=== PATIENT | female | born 1935 | race Caucasian/White ===

== ENCOUNTER 2017-09-27 09:32 | Inpatient (IN) ==
[2017-09-27] MEDS ORDERED: ACETAMINOPHEN 325 MG TABLET PO PRN (09:38)
[2017-09-27] MEDS ORDERED: ONDANSETRON 4 MG/2 ML VIAL IV PRN (09:38)
[2017-09-27] MEDS ORDERED: ALBUTEROL/IPRATROPIUM 3 ML NEB RESP TX PRN (09:59)
[2017-09-27] MEDS ORDERED: cefOXitin 2,000 MG in SYRINGE 1 EACH IV ONE (12:24)
[2017-09-27] MEDS: PANTOPRAZOLE 40 MG TABLET PO SCH (12:30)
[2017-09-27] MEDS: BENZONATATE 100 MG CAPSULE PO SCH ×2 (12:30→20:09)
[2017-09-27] MEDS: LEVOFLOXACIN INJ 500 MG in PREMIX 1 EACH IV SCH (12:30)
[2017-09-27 12:36] LABS: Basophils # 0.1 10*3/uL (0.0-0.2); Basophils % 0.4 % (0.0-0.8); Eosinophils # 0.1 10*3/uL (0.0-0.87); Eosinophils % 0.4 % (0.00-10.9); Hematocrit 30.6 VOL% (35.7-47.0); Hemoglobin 10.5 GM/DL (12.0-16.0); Immature Granulocytes % 1.4 %; Immature Granulocytes Absolute 0.27 #; Lymphocytes % 4.9 % (21.3-54.2); Mean Corpuscular HGB Conc 34.3 GM/DL (32-36); Mean Corpuscular Hemoglobin 29 PG (27-34); Mean Corpuscular Volume 84.1 FL (87-102); Mean Platelet Volume 10.8 FL (9.6-12.0); Monocytes # 1.2 10*3/uL (0.11-0.8); Monocytes % 6.3 % (1.7-12.7); Neutrophils # 16.9 10*3/uL (1.4-7.4); Neutrophils % 86.6 % (38.7-73.9); Platelet Count 296 T/CUMM (130-400); Red Blood Count 3.64 MC/CUMM (3.8-5.5); Red Cell Distribution Width 14.3 % (9.3-17.3); White Blood Count 19.5 T/CUMM (4-12)
[2017-09-27 12:56] LABS: Hypochromasia 1+; Lymphocytes 7 % (20-55); Segmented Neutrophils 86 % (50-85); Total Cells Counted 100
[2017-09-27 12:57] LABS: Microcytosis 1+; Platelet Estimate Normal
[2017-09-27] MEDS: ALBUTEROL/IPRATROPIUM 3 ML NEB RESP TX SCH ×2 (13:00→19:16)
[2017-09-27 13:05] LABS: Alanine Aminotransferase < 9 U/L (13-56); Albumin 1.9 G/DL (3.4-5.0); Alkaline Phosphatase 102 U/L (45-117); Aspartate Amino Transferase 19 U/L (0-37); Blood Urea Nitrogen 37 MG/DL (7-18); Calcium 8.2 MG/DL (8.5-10.1); Glucose 185 MG/DL (74-106); Osmolality,Calculated 283.1 MOS/KG (273-304); Potassium 3.4 MMOL/L (3.5-5.1); Sodium 135 MMOL/L (136-145); Total Protein 5.6 G/DL (6.4-8.3)
[2017-09-27 16:19] LABS: Apearance,Urine Slightly Hazy (Clear); Bilirubin,Urine Negative (Negative); Blood, Urine Small mg/dL (Negative); Glucose,Urine (UA) 150 mg/dL (Negative); Ketones,Urine Negative (Negative); Nitrite,Urine Negative (Negative); Protein,Urine 100 MG/DL; RBC,Urine <1 /HPF (0-4); Squamous Epithelial Cell,Urine Occasional /HPF (0-10); Urine Color Yellow (Yellow); Urine Specific Gravity 1.009 (1.001-1.035); Urine Urobilinogen < 2.0 EU/DL (0.2-1.0); WBC,Urine 5 /HPF (0-6)
[2017-09-27] MEDS: DOCUSATE SODIUM 100 MG CAPSULE PO SCH (20:10)
[2017-09-28] MEDS: ALBUTEROL/IPRATROPIUM 3 ML NEB RESP TX SCH ×4 (01:20→20:18)
[2017-09-28] MEDS ORDERED: cefOXitin 2,000 MG in SYRINGE 1 EACH IV ONE (06:00)
[2017-09-28 06:28] LABS: Basophils # 0.1 10*3/uL (0.0-0.2); Basophils % 0.4 % (0.0-0.8); Eosinophils # 0.2 10*3/uL (0.0-0.87); Eosinophils % 0.8 % (0.00-10.9); Hematocrit 31.4 VOL% (35.7-47.0); Hemoglobin 10.7 GM/DL (12.0-16.0); Immature Granulocytes % 1.3 %; Immature Granulocytes Absolute 0.28 #; Lymphocytes # 1.4 10*3/uL (1.4-4.0); Lymphocytes % 6.1 % (21.3-54.2); Mean Corpuscular HGB Conc 34.1 GM/DL (32-36); Mean Corpuscular Hemoglobin 29 PG (27-34); Mean Platelet Volume 10.8 FL (9.6-12.0); Monocytes # 1.3 10*3/uL (0.11-0.8); Monocytes % 5.8 % (1.7-12.7); Neutrophils # 19.1 10*3/uL (1.4-7.4); Neutrophils % 85.6 % (38.7-73.9); Platelet Count 334 T/CUMM (130-400); Red Blood Count 3.74 MC/CUMM (3.8-5.5); Red Cell Distribution Width 14.4 % (9.3-17.3); White Blood Count 22.3 T/CUMM (4-12)
[2017-09-28 06:49] LABS: Band Neutrophils 1 % (0-10); Lymphocytes 8 % (20-55); Platelet Estimate Adequate; Segmented Neutrophils 85 % (50-85); Total Cells Counted 100
[2017-09-28 06:50] LABS: Giant Platelets Few; Hypochromasia 1+; Microcytosis 1+; Ovalocytes Slight
[2017-09-28 07:06] LABS: Calcium 8.1 MG/DL (8.5-10.1); Potassium 3.9 MMOL/L (3.5-5.1)
[2017-09-28] MEDS: BENZONATATE 100 MG CAPSULE PO SCH ×2 (09:11→21:13)
[2017-09-28] MEDS: DOCUSATE SODIUM 100 MG CAPSULE PO SCH ×2 (09:11→21:13)
[2017-09-28] MEDS: PANTOPRAZOLE 40 MG TABLET PO SCH (09:11)
[2017-09-28] MEDS: LEVOFLOXACIN INJ 500 MG in PREMIX 1 EACH IV SCH (09:11)
[2017-09-29] MEDS: ALBUTEROL/IPRATROPIUM 3 ML NEB RESP TX SCH ×4 (00:08→19:07)
[2017-09-29 06:18] LABS: Basophils # 0.1 10*3/uL (0.0-0.2); Basophils % 0.4 % (0.0-0.8); Eosinophils # 0.2 10*3/uL (0.0-0.87); Hematocrit 33.7 VOL% (35.7-47.0); Hemoglobin 11.2 GM/DL (12.0-16.0); Immature Granulocytes % 1.7 %; Immature Granulocytes Absolute 0.31 #; Lymphocytes # 1.4 10*3/uL (1.4-4.0); Lymphocytes % 7.6 % (21.3-54.2); Mean Corpuscular HGB Conc 33.2 GM/DL (32-36); Mean Corpuscular Hemoglobin 28 PG (27-34); Mean Corpuscular Volume 85.5 FL (87-102); Mean Platelet Volume 10.4 FL (9.6-12.0); Monocytes % 5.4 % (1.7-12.7); Neutrophils # 15.6 10*3/uL (1.4-7.4); Neutrophils % 83.9 % (38.7-73.9); Platelet Count 310 T/CUMM (130-400); Red Blood Count 3.94 MC/CUMM (3.8-5.5); Red Cell Distribution Width 14.3 % (9.3-17.3); White Blood Count 18.6 T/CUMM (4-12)
[2017-09-29 06:46] LABS: Calcium 8.4 MG/DL (8.5-10.1); Osmolality,Calculated 283.8 MOS/KG (273-304); Potassium 3.6 MMOL/L (3.5-5.1)
[2017-09-29] MEDS: BENZONATATE 100 MG CAPSULE PO SCH ×2 (09:00→20:20)
[2017-09-29] MEDS: LEVOFLOXACIN INJ 500 MG in PREMIX 1 EACH IV SCH (09:12)
[2017-09-29] MEDS: DOCUSATE SODIUM 100 MG CAPSULE PO SCH ×2 (09:14→20:20)
[2017-09-29] MEDS ORDERED: LIDOCAINE 1%/EPI INJ 20 ML VIAL ONE ×2 (10:49→13:00)
[2017-09-29] MEDS ORDERED: HEPARIN 5,000 UNIT/1 ML VIAL ONE (10:49)
[2017-09-29] MEDS: SODIUM CHLORIDE 0.9% 250 ML IV SCH ×2 (10:51→23:33)
[2017-09-29] MEDS ORDERED: PROPOFOL 200 MG/20 ML VIAL IV ONE (13:35)
[2017-09-29] MEDS ORDERED: SEVOFLURANE 1 UNIT/15 MINUTE INH ONE (13:35)
[2017-09-29] MEDS ORDERED: ALBUMIN 5% 12.5 GM/250 ML VIAL IV ONE (13:35)
[2017-09-29] MEDS ORDERED: fentaNYL 100 MCG/2 ML VIAL ONE (13:36)
[2017-09-29] MEDS ORDERED: SODIUM CHLORIDE 0.9% 1,000 ML IV ONE (13:37)
[2017-09-29] MEDS ORDERED: ROCURONIUM 100 MG/10 ML VIAL IV ONE (13:37)
[2017-09-29] MEDS ORDERED: ACETAMINOPHEN 1,000 MG/100 ML VIAL IV ONE (13:37)
[2017-09-29] MEDS ORDERED: ONDANSETRON 4 MG/2 ML VIAL ONE (13:37)
[2017-09-29] MEDS ORDERED: LABETALOL 20 MG/4 ML SYRINGE IV ONE (13:42)
[2017-09-29] MEDS ORDERED: LABETALOL 100 MG/20 ML VIAL IV ONE (14:00)
[2017-09-29] MEDS: PANTOPRAZOLE 40 MG TABLET PO SCH (14:30)
[2017-09-29] MEDS ORDERED: NITROGLYCERIN SL 0.4 MG TABLET SL PRN (15:15)
[2017-09-29] MEDS ORDERED: hydrALAZINE 25 MG TABLET PO SCH ×2 (15:29→21:00)
[2017-09-29] MEDS: amLODIPine 5 MG TABLET PO SCH (15:45)
[2017-09-29] MEDS: hydrALAZINE 25 MG TABLET PO SCH ×2 (15:45→20:20)
[2017-09-29] MEDS: CARVEDILOL 12.5 MG TABLET PO SCH (17:36)
[2017-09-30] MEDS: ALBUTEROL/IPRATROPIUM 3 ML NEB RESP TX SCH ×4 (00:05→19:24)
[2017-09-30 02:23] LABS: Basophils # 0.1 10*3/uL (0.0-0.2); Basophils % 0.3 % (0.0-0.8); Eosinophils # 0.1 10*3/uL (0.0-0.87); Eosinophils % 0.6 % (0.00-10.9); Hemoglobin 10.7 GM/DL (12.0-16.0); Immature Granulocytes % 1.9 %; Immature Granulocytes Absolute 0.41 #; Lymphocytes # 1.1 10*3/uL (1.4-4.0); Lymphocytes % 4.9 % (21.3-54.2); Mean Corpuscular HGB Conc 33.4 GM/DL (32-36); Mean Corpuscular Hemoglobin 28 PG (27-34); Mean Corpuscular Volume 84.4 FL (87-102); Mean Platelet Volume 10.2 FL (9.6-12.0); Monocytes # 0.8 10*3/uL (0.11-0.8); Monocytes % 3.8 % (1.7-12.7); Neutrophils # 19.4 10*3/uL (1.4-7.4); Neutrophils % 88.5 % (38.7-73.9); Platelet Count 273 T/CUMM (130-400); Red Blood Count 3.79 MC/CUMM (3.8-5.5); Red Cell Distribution Width 14.5 % (9.3-17.3)
[2017-09-30 02:50] LABS: Calcium 7.4 MG/DL (8.5-10.1); Osmolality,Calculated 286.7 MOS/KG (273-304); Potassium 3.8 MMOL/L (3.5-5.1)
[2017-09-30 03:04] LABS: Band Neutrophils 26 % (0-10); Eosinophils 2 % (0-10); Lymphocytes 4 % (20-55); Segmented Neutrophils 65 % (50-85); Total Cells Counted 100
[2017-09-30 03:05] LABS: Anisocytosis 1+; Polychromasia Slight
[2017-09-30] MEDS: HYDROmorphone 2 MG/1 ML VIAL IV PRN ×2 (04:55→10:06)
[2017-09-30] MEDS: LEVOTHYROXINE 50 MCG TABLET PO SCH (06:24)
[2017-09-30] MEDS ORDERED: amLODIPine 5 MG TABLET PO SCH (09:00)
[2017-09-30] MEDS ORDERED: PANTOPRAZOLE 40 MG TABLET PO SCH (09:00)
[2017-09-30] MEDS: LEVOFLOXACIN INJ 500 MG in PREMIX 1 EACH IV SCH (09:34)
[2017-09-30] MEDS: BENZONATATE 100 MG CAPSULE PO SCH ×2 (09:35→21:41)
[2017-09-30] MEDS: DOCUSATE SODIUM 100 MG CAPSULE PO SCH ×2 (09:35→21:41)
[2017-09-30] MEDS: ASPIRIN 325 MG TABLET PO SCH (09:35)
[2017-09-30] MEDS: PANTOPRAZOLE 40 MG TABLET PO SCH (09:35)
[2017-09-30] MEDS: ISOSORBIDE MONONITRATE 60 MG TABLET PO SCH (09:35)
[2017-09-30] MEDS: hydrALAZINE 25 MG TABLET PO SCH ×3 (09:35→21:41)
[2017-09-30] MEDS: CALCITRIOL 0.5 MCG CAPSULE PO SCH (09:35)
[2017-09-30] MEDS: ATORVASTATIN 20 MG TABLET PO SCH (09:36)
[2017-09-30] MEDS: CARVEDILOL 12.5 MG TABLET PO SCH ×2 (09:36→16:12)
[2017-09-30] MEDS: amLODIPine 5 MG TABLET PO SCH (09:37)
[2017-09-30] MEDS: SODIUM CHLORIDE 0.9% 250 ML IV SCH ×2 (16:12→23:34)
[2017-09-30] MEDS: MUPIROCIN 2% OINT 22 GM TUBE TOP SCH (21:42)
[2017-10-01] MEDS: ALBUTEROL/IPRATROPIUM 3 ML NEB RESP TX SCH ×4 (01:53→19:55)
[2017-10-01 04:50] LABS: Basophils # 0.1 10*3/uL (0.0-0.2); Basophils % 0.3 % (0.0-0.8); Eosinophils # 0.3 10*3/uL (0.0-0.87); Eosinophils % 1.4 % (0.00-10.9); Hematocrit 29.8 VOL% (35.7-47.0); Hemoglobin 9.7 GM/DL (12.0-16.0); Lymphocytes # 1.5 10*3/uL (1.4-4.0); Lymphocytes % 7.5 % (21.3-54.2); Mean Corpuscular HGB Conc 32.6 GM/DL (32-36); Mean Corpuscular Hemoglobin 29 PG (27-34); Mean Corpuscular Volume 88.2 FL (87-102); Mean Platelet Volume 10.3 FL (9.6-12.0); Monocytes # 0.9 10*3/uL (0.11-0.8); Monocytes % 4.4 % (1.7-12.7); Neutrophils # 17.2 10*3/uL (1.4-7.4); Neutrophils % 84.4 % (38.7-73.9); Platelet Count 250 T/CUMM (130-400); Red Blood Count 3.38 MC/CUMM (3.8-5.5); Red Cell Distribution Width 14.6 % (9.3-17.3); White Blood Count 20.4 T/CUMM (4-12)
[2017-10-01 05:13] LABS: Hypochromasia 1+
[2017-10-01 05:14] LABS: Platelet Estimate Adequate
[2017-10-01 05:28] LABS: Calcium 7.4 MG/DL (8.5-10.1); Osmolality,Calculated 278.5 MOS/KG (273-304); Potassium 3.7 MMOL/L (3.5-5.1)
[2017-10-01] MEDS: LEVOTHYROXINE 50 MCG TABLET PO SCH (06:29)
[2017-10-01] MEDS: ASPIRIN 325 MG TABLET PO SCH (09:21)
[2017-10-01] MEDS: ISOSORBIDE MONONITRATE 60 MG TABLET PO SCH (09:21)
[2017-10-01] MEDS: ATORVASTATIN 20 MG TABLET PO SCH (09:21)
[2017-10-01] MEDS: DOCUSATE SODIUM 100 MG CAPSULE PO SCH ×2 (09:21→21:25)
[2017-10-01] MEDS: CALCITRIOL 0.5 MCG CAPSULE PO SCH (09:21)
[2017-10-01] MEDS: CARVEDILOL 12.5 MG TABLET PO SCH ×2 (09:21→18:07)
[2017-10-01] MEDS: PANTOPRAZOLE 40 MG TABLET PO SCH (09:21)
[2017-10-01] MEDS: hydrALAZINE 25 MG TABLET PO SCH ×3 (09:22→21:25)
[2017-10-01] MEDS: BENZONATATE 100 MG CAPSULE PO SCH ×2 (09:22→21:25)
[2017-10-01] MEDS: MUPIROCIN 2% OINT 22 GM TUBE TOP SCH ×2 (09:24→21:28)
[2017-10-01] MEDS: amLODIPine 5 MG TABLET PO SCH (09:24)
[2017-10-01] MEDS: LEVOFLOXACIN INJ 500 MG in PREMIX 1 EACH IV SCH (10:25)
[2017-10-01] MEDS: SODIUM CHLORIDE 0.9% 250 ML IV SCH (18:07)
[2017-10-02] MEDS: ALBUTEROL/IPRATROPIUM 3 ML NEB RESP TX SCH ×4 (00:20→19:41)
[2017-10-02] MEDS: SODIUM CHLORIDE 0.9% 250 ML IV SCH (03:55)
[2017-10-02] MEDS: LEVOTHYROXINE 50 MCG TABLET PO SCH (05:52)
[2017-10-02] MEDS: BENZONATATE 100 MG CAPSULE PO SCH ×2 (09:36→21:19)
[2017-10-02] MEDS: CALCITRIOL 0.5 MCG CAPSULE PO SCH (09:36)
[2017-10-02] MEDS: DOCUSATE SODIUM 100 MG CAPSULE PO SCH ×2 (09:37→21:20)
[2017-10-02] MEDS: ATORVASTATIN 20 MG TABLET PO SCH (09:37)
[2017-10-02] MEDS: hydrALAZINE 25 MG TABLET PO SCH ×3 (09:37→21:20)
[2017-10-02] MEDS: amLODIPine 5 MG TABLET PO SCH (09:37)
[2017-10-02] MEDS: PANTOPRAZOLE 40 MG TABLET PO SCH (09:37)
[2017-10-02] MEDS: MUPIROCIN 2% OINT 22 GM TUBE TOP SCH ×2 (09:37→21:17)
[2017-10-02] MEDS: ASPIRIN 325 MG TABLET PO SCH (09:37)
[2017-10-02] MEDS: CARVEDILOL 12.5 MG TABLET PO SCH ×2 (09:37→16:17)
[2017-10-02] MEDS: ISOSORBIDE MONONITRATE 60 MG TABLET PO SCH (09:37)
[2017-10-02] MEDS: LEVOFLOXACIN INJ 500 MG in PREMIX 1 EACH IV SCH (10:50)
[2017-10-03] MEDS: ALBUTEROL/IPRATROPIUM 3 ML NEB RESP TX SCH ×3 (00:20→14:27)
[2017-10-03 04:49] LABS: Basophils # 0.1 10*3/uL (0.0-0.2); Basophils % 0.4 % (0.0-0.8); Eosinophils # 0.5 10*3/uL (0.0-0.87); Eosinophils % 3.2 % (0.00-10.9); Hematocrit 26.8 VOL% (35.7-47.0); Hemoglobin 8.9 GM/DL (12.0-16.0); Immature Granulocytes % 2.4 %; Immature Granulocytes Absolute 0.33 #; Lymphocytes # 1.4 10*3/uL (1.4-4.0); Mean Corpuscular HGB Conc 33.2 GM/DL (32-36); Mean Corpuscular Hemoglobin 29 PG (27-34); Mean Corpuscular Volume 86.2 FL (87-102); Mean Platelet Volume 9.9 FL (9.6-12.0); Monocytes # 0.8 10*3/uL (0.11-0.8); Monocytes % 5.6 % (1.7-12.7); Neutrophils # 10.9 10*3/uL (1.4-7.4); Neutrophils % 78.4 % (38.7-73.9); Platelet Count 240 T/CUMM (130-400); Red Blood Count 3.11 MC/CUMM (3.8-5.5); Red Cell Distribution Width 14.8 % (9.3-17.3); White Blood Count 13.9 T/CUMM (4-12)
[2017-10-03 05:23] LABS: Calcium 7.4 MG/DL (8.5-10.1); Osmolality,Calculated 282.8 MOS/KG (273-304); Potassium 3.8 MMOL/L (3.5-5.1)
[2017-10-03] MEDS: SODIUM CHLORIDE 0.9% 250 ML IV SCH ×2 (05:57→05:58)
[2017-10-03] MEDS: LEVOTHYROXINE 50 MCG TABLET PO SCH (05:59)
[2017-10-03] MEDS: hydrALAZINE 25 MG TABLET PO SCH ×2 (14:09→16:07)
[2017-10-03] MEDS: DOCUSATE SODIUM 100 MG CAPSULE PO SCH (14:09)
[2017-10-03] MEDS: CARVEDILOL 12.5 MG TABLET PO SCH (14:09)
[2017-10-03] MEDS: MUPIROCIN 2% OINT 22 GM TUBE TOP SCH (14:09)
[2017-10-03] MEDS: ATORVASTATIN 20 MG TABLET PO SCH (14:09)
[2017-10-03] MEDS: ISOSORBIDE MONONITRATE 60 MG TABLET PO SCH (14:09)
[2017-10-03] MEDS: ASPIRIN 325 MG TABLET PO SCH (14:09)
[2017-10-03] MEDS: amLODIPine 5 MG TABLET PO SCH (14:10)
[2017-10-03] MEDS: BENZONATATE 100 MG CAPSULE PO SCH (14:10)
[2017-10-03] MEDS: CALCITRIOL 0.5 MCG CAPSULE PO SCH (14:10)
[2017-10-03] MEDS: PANTOPRAZOLE 40 MG TABLET PO SCH (14:10)
[2017-10-03] MEDS: LEVOFLOXACIN INJ 500 MG in PREMIX 1 EACH IV SCH (14:10)
[2017-10-03 15:40] VITALS: BP 170/81
== END 2017-10-03 15:15 | disposition home health service (06) | DRG 353 ==
LOC: N.3E 11:55
PROVIDERS: ADMIT Internal Medicine; ATTEND Internal Medicine

== ENCOUNTER 2018-04-06 08:31 | Inpatient (IN) ==
[2018-04-06] MEDS ORDERED: FUROSEMIDE 40 MG/4 ML VIAL IV STA (09:05)
[2018-04-06 09:21] LABS: Basophils # 0.1 10*3/uL (0.0-0.2); Basophils % 0.8 % (0.0-0.8); Eosinophils # 0.2 10*3/uL (0.0-0.87); Eosinophils % 3.7 % (0.00-10.9); Hematocrit 29.2 VOL% (35.7-47.0); Hemoglobin 9.6 GM/DL (12.0-16.0); Immature Granulocytes % 0.2 %; Immature Granulocytes Absolute 0.01 #; Lymphocytes # 0.9 10*3/uL (1.4-4.0); Lymphocytes % 13.8 % (21.3-54.2); Mean Corpuscular HGB Conc 32.9 GM/DL (32-36); Mean Corpuscular Hemoglobin 28 PG (27-34); Mean Corpuscular Volume 84.6 FL (87-102); Mean Platelet Volume 10.8 FL (9.6-12.0); Monocytes # 0.5 10*3/uL (0.11-0.8); Monocytes % 7.8 % (1.7-12.7); Neutrophils # 4.6 10*3/uL (1.4-7.4); Neutrophils % 73.7 % (38.7-73.9); Platelet Count 179 T/CUMM (130-400); Red Blood Count 3.45 MC/CUMM (3.8-5.5); Red Cell Distribution Width 15.6 % (9.3-17.3); White Blood Count 6.3 T/CUMM (4-12)
[2018-04-06 10:07] LABS: Albumin 2.5 G/DL (3.4-5.0); Bilirubin,Total 0.4 MG/DL (0.2-1.0); Calcium 7.9 MG/DL (8.5-10.1); Osmolality,Calculated 280.7 MOS/KG (273-304); Potassium 4.1 MMOL/L (3.5-5.1)
[2018-04-06] MEDS ORDERED: ONDANSETRON 4 MG/2 ML VIAL IV PRN (10:49)
[2018-04-06 15:45] LABS: Apearance,Urine CLEAR (Clear); Bacteria,Urine Occasional /HPF (Few); Bilirubin,Urine Negative (Negative); Blood, Urine Small mg/dL (Negative); Glucose,Urine (UA) Negative (Negative); Ketones,Urine Negative (Negative); Nitrite,Urine Negative (Negative); Protein,Urine 30 MG/DL; RBC,Urine <1 /HPF (0-4); Squamous Epithelial Cell,Urine Occasional /HPF (0-10); Urine Color Straw (Yellow); Urine Specific Gravity 1.004 (1.001-1.035); Urine Urobilinogen < 2.0 EU/DL (0.2-1.0); WBC,Urine <1 /HPF (0-6)
[2018-04-06] MEDS: FUROSEMIDE 40 MG/4 ML VIAL IV SCH (20:49)
[2018-04-06] MEDS ORDERED: FUROSEMIDE 40 MG/4 ML VIAL IV SCH (21:00)
[2018-04-07 05:45] LABS: Basophils # 0.1 10*3/uL (0.0-0.2); Basophils % 0.7 % (0.0-0.8); Eosinophils # 0.2 10*3/uL (0.0-0.87); Eosinophils % 1.8 % (0.00-10.9); Hematocrit 27.7 VOL% (35.7-47.0); Hemoglobin 8.8 GM/DL (12.0-16.0); Immature Granulocytes % 0.3 %; Immature Granulocytes Absolute 0.03 #; Lymphocytes # 1.1 10*3/uL (1.4-4.0); Lymphocytes % 12.2 % (21.3-54.2); Mean Corpuscular HGB Conc 31.8 GM/DL (32-36); Mean Corpuscular Hemoglobin 27 PG (27-34); Mean Platelet Volume 10.9 FL (9.6-12.0); Monocytes # 0.6 10*3/uL (0.11-0.8); Monocytes % 6.9 % (1.7-12.7); Neutrophils # 7.1 10*3/uL (1.4-7.4); Neutrophils % 78.1 % (38.7-73.9); Platelet Count 192 T/CUMM (130-400); Red Blood Count 3.26 MC/CUMM (3.8-5.5); Red Cell Distribution Width 15.8 % (9.3-17.3); White Blood Count 9.1 T/CUMM (4-12)
[2018-04-07 05:56] LABS: Albumin 2.4 G/DL (3.4-5.0); Osmolality,Calculated 279.8 MOS/KG (273-304)
[2018-04-07] MEDS ORDERED: NITROGLYCERIN SL 0.4 MG TABLET SL PRN (08:05)
[2018-04-07] MEDS: FUROSEMIDE 40 MG/4 ML VIAL IV SCH ×2 (08:46→20:26)
[2018-04-07] MEDS ORDERED: LEVOTHYROXINE 50 MCG TABLET PO SCH (09:00)
[2018-04-07] MEDS ORDERED: BUPIVACAINE MPF 0.25% 30 ML VIAL ONE (09:47)
[2018-04-07] MEDS: ASPIRIN 325 MG TABLET PO SCH (10:13)
[2018-04-07] MEDS: ISOSORBIDE MONONITRATE 60 MG TABLET PO SCH (10:13)
[2018-04-07] MEDS: POTASSIUM CHLORIDE 8 MEQ CAPSULE PO SCH (10:13)
[2018-04-07] MEDS: ATORVASTATIN 20 MG TABLET PO SCH (10:13)
[2018-04-07] MEDS: CHOLESTYRAMINE/ASPARTAME 4 GM PACK PO SCH ×2 (10:14→20:25)
[2018-04-07] MEDS: PANTOPRAZOLE 40 MG TABLET PO SCH (10:14)
[2018-04-07] MEDS: metOLazone 2.5 MG TABLET PO SCH ×2 (10:14→20:25)
[2018-04-07] MEDS: amLODIPine 10 MG TABLET PO SCH (10:14)
[2018-04-07] MEDS ORDERED: ceFAZolin 1,000 MG VIAL ONE (10:32)
[2018-04-07] MEDS ORDERED: HEPARIN 5,000 UNIT/1 ML VIAL ONE (10:47)
[2018-04-07] MEDS: ALBUTEROL/IPRATROPIUM 3 ML NEB RESP TX SCH ×4 (11:15→22:44)
[2018-04-07] MEDS ORDERED: PROPOFOL 1,000 MG/100 ML BOTTLE IV ONE (11:31)
[2018-04-07] MEDS ORDERED: PROPOFOL 200 MG/20 ML VIAL IV ONE (11:34)
[2018-04-07] MEDS ORDERED: fentaNYL 100 MCG/2 ML VIAL ONE (11:35)
[2018-04-07] MEDS ORDERED: SUCCINYLCHOLINE 200 MG/10 ML VIAL ONE (11:35)
[2018-04-07] MEDS ORDERED: ROCURONIUM 100 MG/10 ML VIAL IV ONE (11:35)
[2018-04-07] MEDS ORDERED: ONDANSETRON 4 MG/2 ML VIAL ONE (11:35)
[2018-04-07] MEDS ORDERED: SEVOFLURANE 1 UNIT/15 MINUTE INH ONE (11:35)
[2018-04-07] MEDS: PROPOFOL 1,000 MG/100 ML BOTTLE IV SCH ×2 (12:15→22:24)
[2018-04-07 13:00] LABS: ABG Base Excess -0.5 MMOL/L (-2.5-2.5); ABG Oxygen Saturation 94.5 % (95-100); ABG PCO2 43.3 MM HG (35-48); ABG PH 7.367 (7.35-7.45); ABG PO2 78.6 MM HG (80-95); ABG TCO2 23.1 MMOL/L (23-27); Pt O2 Delivery Device Ventilator
[2018-04-07] MEDS: CARVEDILOL 12.5 MG TABLET PO SCH (16:59)
[2018-04-07] MEDS ORDERED: GLUCAGON 1 MG VIAL IM PRN (22:18)
[2018-04-07] MEDS: DEXTROSE 50% 25 GM/50 ML VIAL IV PRN (22:25)
[2018-04-07] MEDS: INSULIN REGULAR 100 UNIT/ML SUBCUT SCH (23:04)
[2018-04-08] MEDS: ALBUTEROL/IPRATROPIUM 3 ML NEB RESP TX SCH ×6 (02:30→23:30)
[2018-04-08 03:49] LABS: ABG Base Excess -0.1 MMOL/L (-2.5-2.5); ABG HCO3 24.4 MMOL/L (20-26); ABG Oxygen Saturation 99.3 % (95-100); ABG PH 7.468 (7.35-7.45); ABG TCO2 21.4 MMOL/L (23-27); Allen Test Positive; Pt O2 Delivery Device Ventilator
[2018-04-08 05:18] LABS: Basophils % 0.3 % (0.0-0.8); Eosinophils # 0.1 10*3/uL (0.0-0.87); Eosinophils % 1.4 % (0.00-10.9); Hematocrit 27.2 VOL% (35.7-47.0); Hemoglobin 8.7 GM/DL (12.0-16.0); Immature Granulocytes % 0.5 %; Immature Granulocytes Absolute 0.04 #; Lymphocytes # 0.9 10*3/uL (1.4-4.0); Lymphocytes % 10.6 % (21.3-54.2); Mean Corpuscular Hemoglobin 27 PG (27-34); Mean Corpuscular Volume 83.7 FL (87-102); Mean Platelet Volume 10.7 FL (9.6-12.0); Monocytes # 0.6 10*3/uL (0.11-0.8); Monocytes % 7.1 % (1.7-12.7); Neutrophils % 80.1 % (38.7-73.9); Platelet Count 170 T/CUMM (130-400); Red Blood Count 3.25 MC/CUMM (3.8-5.5); Red Cell Distribution Width 16.3 % (9.3-17.3); White Blood Count 8.7 T/CUMM (4-12)
[2018-04-08] MEDS: PROPOFOL 1,000 MG/100 ML BOTTLE IV SCH (05:30)
[2018-04-08] MEDS: INSULIN REGULAR 100 UNIT/ML SUBCUT SCH ×4 (05:34→23:49)
[2018-04-08] MEDS: DEXTROSE 50% 25 GM/50 ML VIAL IV PRN (05:38)
[2018-04-08 05:48] LABS: Albumin 2.1 G/DL (3.4-5.0); Calcium 7.8 MG/DL (8.5-10.1); Osmolality,Calculated 279.8 MOS/KG (273-304); Potassium 3.9 MMOL/L (3.5-5.1)
[2018-04-08 05:49] LABS: Albumin 2.1 G/DL (3.4-5.0); Bilirubin,Total 0.5 MG/DL (0.2-1.0); Total Protein 6.1 G/DL (6.4-8.3)
[2018-04-08 05:50] LABS: Osmolality,Calculated 278.8 MOS/KG (273-304); Potassium 3.8 MMOL/L (3.5-5.1)
[2018-04-08] MEDS: LEVOTHYROXINE 88 MCG TABLET PO SCH (06:53)
[2018-04-08] MEDS: CARVEDILOL 12.5 MG TABLET PO SCH ×2 (08:07→16:51)
[2018-04-08] MEDS: CHOLESTYRAMINE/ASPARTAME 4 GM PACK PO SCH ×2 (08:07→20:11)
[2018-04-08] MEDS: ASPIRIN 325 MG TABLET PO SCH (08:07)
[2018-04-08] MEDS: POTASSIUM CHLORIDE 8 MEQ CAPSULE PO SCH (08:07)
[2018-04-08] MEDS: FUROSEMIDE 40 MG/4 ML VIAL IV SCH ×2 (08:07→20:11)
[2018-04-08] MEDS: ISOSORBIDE MONONITRATE 60 MG TABLET PO SCH (08:07)
[2018-04-08] MEDS: amLODIPine 10 MG TABLET PO SCH (08:07)
[2018-04-08] MEDS: PANTOPRAZOLE 40 MG TABLET PO SCH (08:07)
[2018-04-08] MEDS: ATORVASTATIN 20 MG TABLET PO SCH (08:07)
[2018-04-08] MEDS: metOLazone 2.5 MG TABLET PO SCH ×2 (08:07→20:11)
[2018-04-09] MEDS: ALBUTEROL/IPRATROPIUM 3 ML NEB RESP TX SCH ×6 (03:50→23:00)
[2018-04-09 05:30] LABS: Basophils % 0.3 % (0.0-0.8); Eosinophils # 0.3 10*3/uL (0.0-0.87); Eosinophils % 2.6 % (0.00-10.9); Hematocrit 25.2 VOL% (35.7-47.0); Immature Granulocytes % 0.5 %; Immature Granulocytes Absolute 0.05 #; Lymphocytes # 1.2 10*3/uL (1.4-4.0); Lymphocytes % 12.7 % (21.3-54.2); Mean Corpuscular HGB Conc 31.7 GM/DL (32-36); Mean Corpuscular Hemoglobin 27 PG (27-34); Mean Corpuscular Volume 84.6 FL (87-102); Mean Platelet Volume 10.4 FL (9.6-12.0); Monocytes # 0.9 10*3/uL (0.11-0.8); Monocytes % 8.8 % (1.7-12.7); Neutrophils # 7.3 10*3/uL (1.4-7.4); Neutrophils % 75.1 % (38.7-73.9); Platelet Count 166 T/CUMM (130-400); Red Blood Count 2.98 MC/CUMM (3.8-5.5); Red Cell Distribution Width 16.1 % (9.3-17.3); White Blood Count 9.7 T/CUMM (4-12)
[2018-04-09 06:07] LABS: Calcium 7.6 MG/DL (8.5-10.1); Osmolality,Calculated 282.8 MOS/KG (273-304)
[2018-04-09 06:09] LABS: Alanine Aminotransferase < 6 U/L (13-56); Albumin 1.9 G/DL (3.4-5.0); Alkaline Phosphatase 68 U/L (45-117); Aspartate Amino Transferase 15 U/L (0-37); Bilirubin,Total < 0.39 MG/DL (0.2-1.0); Blood Urea Nitrogen 38 MG/DL (7-18); Calcium 7.6 MG/DL (8.5-10.1); Glucose 117 MG/DL (74-106); Potassium 3.9 MMOL/L (3.5-5.1); Sodium 136 MMOL/L (136-145); Total Protein 5.5 G/DL (6.4-8.3)
[2018-04-09] MEDS: INSULIN REGULAR 100 UNIT/ML SUBCUT SCH ×3 (06:15→18:36)
[2018-04-09] MEDS: FUROSEMIDE 40 MG/4 ML VIAL IV SCH ×2 (08:57→20:47)
[2018-04-09] MEDS: ATORVASTATIN 20 MG TABLET PO SCH (08:58)
[2018-04-09] MEDS: amLODIPine 10 MG TABLET PO SCH (08:58)
[2018-04-09] MEDS: metOLazone 2.5 MG TABLET PO SCH ×2 (08:58→20:46)
[2018-04-09] MEDS: PANTOPRAZOLE 40 MG TABLET PO SCH (08:59)
[2018-04-09] MEDS: ASPIRIN 325 MG TABLET PO SCH (08:59)
[2018-04-09] MEDS: ISOSORBIDE MONONITRATE 60 MG TABLET PO SCH (08:59)
[2018-04-09] MEDS: POTASSIUM CHLORIDE 8 MEQ CAPSULE PO SCH (08:59)
[2018-04-09] MEDS: LEVOTHYROXINE 88 MCG TABLET PO SCH (09:10)
[2018-04-09] MEDS: CARVEDILOL 12.5 MG TABLET PO SCH ×2 (09:10→17:23)
[2018-04-09] MEDS: CHOLESTYRAMINE/ASPARTAME 4 GM PACK PO SCH ×2 (09:11→20:46)
[2018-04-10] MEDS: INSULIN REGULAR 100 UNIT/ML SUBCUT SCH ×4 (00:18→18:15)
[2018-04-10] MEDS: ALBUTEROL/IPRATROPIUM 3 ML NEB RESP TX SCH ×6 (02:57→23:45)
[2018-04-10 05:41] LABS: Basophils % 0.5 % (0.0-0.8); Eosinophils # 0.5 10*3/uL (0.0-0.87); Eosinophils % 5.8 % (0.00-10.9); Hematocrit 26.3 VOL% (35.7-47.0); Hemoglobin 8.6 GM/DL (12.0-16.0); Immature Granulocytes % 0.4 %; Immature Granulocytes Absolute 0.03 #; Lymphocytes % 11.5 % (21.3-54.2); Mean Corpuscular HGB Conc 32.7 GM/DL (32-36); Mean Corpuscular Hemoglobin 28 PG (27-34); Mean Corpuscular Volume 84.6 FL (87-102); Mean Platelet Volume 10.3 FL (9.6-12.0); Monocytes # 0.6 10*3/uL (0.11-0.8); Monocytes % 7.2 % (1.7-12.7); Neutrophils # 6.2 10*3/uL (1.4-7.4); Neutrophils % 74.6 % (38.7-73.9); Platelet Count 169 T/CUMM (130-400); Red Blood Count 3.11 MC/CUMM (3.8-5.5); Red Cell Distribution Width 16.1 % (9.3-17.3); White Blood Count 8.3 T/CUMM (4-12)
[2018-04-10 05:50] LABS: Albumin 1.8 G/DL (3.4-5.0); Calcium 7.5 MG/DL (8.5-10.1)
[2018-04-10 05:51] LABS: Potassium 3.7 MMOL/L (3.5-5.1)
[2018-04-10 05:54] LABS: Alanine Aminotransferase < 6 U/L (13-56); Albumin 1.9 G/DL (3.4-5.0); Alkaline Phosphatase 66 U/L (45-117); Aspartate Amino Transferase 17 U/L (0-37); Blood Urea Nitrogen 34 MG/DL (7-18); Calcium 7.6 MG/DL (8.5-10.1); Glucose 126 MG/DL (74-106); Potassium 3.6 MMOL/L (3.5-5.1); Sodium 136 MMOL/L (136-145); Total Protein 5.4 G/DL (6.4-8.3)
[2018-04-10] MEDS: FUROSEMIDE 40 MG/4 ML VIAL IV SCH ×2 (09:16→21:01)
[2018-04-10] MEDS: CARVEDILOL 12.5 MG TABLET PO SCH ×2 (09:17→18:06)
[2018-04-10] MEDS: LEVOTHYROXINE 88 MCG TABLET PO SCH (09:17)
[2018-04-10] MEDS: metOLazone 2.5 MG TABLET PO SCH ×2 (09:17→21:01)
[2018-04-10] MEDS: ASPIRIN 325 MG TABLET PO SCH (09:17)
[2018-04-10] MEDS: ATORVASTATIN 20 MG TABLET PO SCH (09:18)
[2018-04-10] MEDS: ISOSORBIDE MONONITRATE 60 MG TABLET PO SCH (09:18)
[2018-04-10] MEDS: POTASSIUM CHLORIDE 8 MEQ CAPSULE PO SCH (09:18)
[2018-04-10] MEDS: PANTOPRAZOLE 40 MG TABLET PO SCH (09:18)
[2018-04-10] MEDS: amLODIPine 10 MG TABLET PO SCH (09:19)
[2018-04-10] MEDS: CHOLESTYRAMINE/ASPARTAME 4 GM PACK PO SCH ×2 (09:20→21:01)
[2018-04-11] MEDS: INSULIN REGULAR 100 UNIT/ML SUBCUT SCH ×3 (00:22→13:09)
[2018-04-11] MEDS: ALBUTEROL/IPRATROPIUM 3 ML NEB RESP TX SCH ×3 (02:30→11:15)
[2018-04-11] MEDS: LEVOTHYROXINE 88 MCG TABLET PO SCH (06:18)
[2018-04-11 08:02] VITALS: BP 182/90
[2018-04-11] MEDS: ISOSORBIDE MONONITRATE 60 MG TABLET PO SCH (09:46)
[2018-04-11] MEDS: ATORVASTATIN 20 MG TABLET PO SCH (09:46)
[2018-04-11] MEDS: ASPIRIN 325 MG TABLET PO SCH (09:46)
[2018-04-11] MEDS: amLODIPine 10 MG TABLET PO SCH (09:47)
[2018-04-11] MEDS: PANTOPRAZOLE 40 MG TABLET PO SCH (09:47)
[2018-04-11] MEDS: metOLazone 2.5 MG TABLET PO SCH (09:47)
[2018-04-11] MEDS: FUROSEMIDE 40 MG/4 ML VIAL IV SCH (09:47)
[2018-04-11] MEDS: CARVEDILOL 12.5 MG TABLET PO SCH (09:47)
[2018-04-11] MEDS: POTASSIUM CHLORIDE 8 MEQ CAPSULE PO SCH (09:47)
[2018-04-11] MEDS: CHOLESTYRAMINE/ASPARTAME 4 GM PACK PO SCH (09:48)
== END 2018-04-11 13:00 | disposition home health service (06) | DRG 907 ==
LOC: N.ED 08:31 → N.EDINP 10:48 → N.TELEN 11:30 → N.ICU 04-07 11:51 → N.TELEN 04-08 17:10
PROVIDERS: ADMIT Internal Medicine; ATTEND Internal Medicine

== ENCOUNTER 2018-04-14 08:45 | Inpatient (IN) ==
[2018-04-14 10:03] LABS: Basophils # 0.1 10*3/uL (0.0-0.2); Basophils % 0.6 % (0.0-0.8); Eosinophils # 0.4 10*3/uL (0.0-0.87); Eosinophils % 4.4 % (0.00-10.9); Hematocrit 24.6 VOL% (35.7-47.0); Immature Granulocytes % 0.4 %; Immature Granulocytes Absolute 0.03 #; Lymphocytes # 1.4 10*3/uL (1.4-4.0); Lymphocytes % 16.4 % (21.3-54.2); Mean Corpuscular HGB Conc 32.5 GM/DL (32-36); Mean Corpuscular Hemoglobin 27 PG (27-34); Mean Corpuscular Volume 83.7 FL (87-102); Mean Platelet Volume 9.7 FL (9.6-12.0); Monocytes % 11.7 % (1.7-12.7); Neutrophils # 5.5 10*3/uL (1.4-7.4); Neutrophils % 66.5 % (38.7-73.9); Platelet Count 211 T/CUMM (130-400); Red Blood Count 2.94 MC/CUMM (3.8-5.5); Red Cell Distribution Width 16.2 % (9.3-17.3); White Blood Count 8.2 T/CUMM (4-12)
[2018-04-14] MEDS ORDERED: ACETAMINOPHEN 325 MG TABLET PO PRN (10:21)
[2018-04-14] MEDS ORDERED: ONDANSETRON 4 MG/2 ML VIAL IV PRN (10:21)
[2018-04-14 10:42] LABS: Alanine Aminotransferase 9 U/L (13-56); Albumin 1.9 G/DL (3.4-5.0); Alkaline Phosphatase 69 U/L (45-117); Aspartate Amino Transferase 26 U/L (0-37); Bilirubin,Total < 0.39 MG/DL (0.2-1.0); Blood Urea Nitrogen 27 MG/DL (7-18); Calcium 7.7 MG/DL (8.5-10.1); Glucose 118 MG/DL (74-106); Osmolality,Calculated 282.5 MOS/KG (273-304); Potassium 2.9 MMOL/L (3.5-5.1); Sodium 139 MMOL/L (136-145); Total Protein 5.8 G/DL (6.4-8.3)
[2018-04-14] MEDS ORDERED: NITROGLYCERIN SL 0.4 MG TABLET SL PRN (12:50)
[2018-04-14] MEDS ORDERED: HEPARIN 5,000 UNIT/1 ML VIAL ONE (13:06)
[2018-04-14] MEDS ORDERED: LIDOCAINE 1% 20 ML VIAL ONE (13:06)
[2018-04-14] MEDS ORDERED: BUPIVACAINE MPF 0.25% 30 ML VIAL ONE (13:06)
[2018-04-14] MEDS ORDERED: ceFAZolin 1,000 MG VIAL ONE (13:32)
[2018-04-14] MEDS ORDERED: SODIUM CHLORIDE 0.9% 250 ML IV ONE (14:02)
[2018-04-14] MEDS ORDERED: PROPOFOL 200 MG/20 ML VIAL IV ONE (14:02)
[2018-04-14] MEDS ORDERED: HEPARIN 10,000 UNIT/10 ML VIAL IV SCH (15:30)
[2018-04-14] MEDS: CARVEDILOL 12.5 MG TABLET PO SCH (17:50)
[2018-04-14] MEDS: FUROSEMIDE 40 MG TABLET PO SCH (17:50)
[2018-04-14] MEDS: CHOLESTYRAMINE/ASPARTAME 4 GM PACK PO SCH (21:18)
[2018-04-14] MEDS: DOCUSATE SODIUM 100 MG CAPSULE PO SCH (21:18)
[2018-04-14] MEDS: metOLazone 2.5 MG TABLET PO SCH (21:18)
[2018-04-15] MEDS: LEVOTHYROXINE 88 MCG TABLET PO SCH (06:05)
[2018-04-15] MEDS ORDERED: PANTOPRAZOLE 40 MG TABLET PO SCH (09:00)
[2018-04-15] MEDS: FUROSEMIDE 40 MG TABLET PO SCH ×2 (12:11→16:06)
[2018-04-15] MEDS: CARVEDILOL 12.5 MG TABLET PO SCH ×2 (12:11→16:06)
[2018-04-15] MEDS: ASPIRIN 325 MG TABLET PO SCH (13:04)
[2018-04-15] MEDS: metOLazone 2.5 MG TABLET PO SCH ×2 (13:04→20:13)
[2018-04-15] MEDS: POTASSIUM CHLORIDE 8 MEQ CAPSULE PO SCH (13:04)
[2018-04-15] MEDS: amLODIPine 5 MG TABLET PO SCH (13:04)
[2018-04-15] MEDS: ISOSORBIDE MONONITRATE 60 MG TABLET PO SCH (13:05)
[2018-04-15] MEDS: ATORVASTATIN 20 MG TABLET PO SCH (13:05)
[2018-04-15] MEDS: PANTOPRAZOLE 40 MG TABLET PO SCH (13:05)
[2018-04-15] MEDS: DOCUSATE SODIUM 100 MG CAPSULE PO SCH ×2 (13:05→20:13)
[2018-04-15] MEDS: AMITRIPTYLINE 25 MG TABLET PO SCH (13:05)
[2018-04-15] MEDS: CHOLESTYRAMINE/ASPARTAME 4 GM PACK PO SCH ×2 (13:06→20:14)
[2018-04-16] MEDS: LEVOTHYROXINE 88 MCG TABLET PO SCH (06:24)
[2018-04-16 06:33] LABS: Calcium 7.2 MG/DL (8.5-10.1); Osmolality,Calculated 276.5 MOS/KG (273-304); Potassium 3.6 MMOL/L (3.5-5.1)
[2018-04-16] MEDS: CARVEDILOL 12.5 MG TABLET PO SCH ×2 (08:30→17:37)
[2018-04-16] MEDS: amLODIPine 5 MG TABLET PO SCH (08:30)
[2018-04-16] MEDS: PANTOPRAZOLE 40 MG TABLET PO SCH (08:30)
[2018-04-16] MEDS: metOLazone 2.5 MG TABLET PO SCH ×2 (08:32→20:48)
[2018-04-16] MEDS: AMITRIPTYLINE 25 MG TABLET PO SCH (08:32)
[2018-04-16] MEDS: DOCUSATE SODIUM 100 MG CAPSULE PO SCH ×2 (08:32→20:48)
[2018-04-16] MEDS: ISOSORBIDE MONONITRATE 60 MG TABLET PO SCH (08:32)
[2018-04-16] MEDS: ATORVASTATIN 20 MG TABLET PO SCH (08:32)
[2018-04-16] MEDS: POTASSIUM CHLORIDE 8 MEQ CAPSULE PO SCH (08:32)
[2018-04-16] MEDS: ASPIRIN 325 MG TABLET PO SCH (08:32)
[2018-04-16] MEDS: FUROSEMIDE 40 MG TABLET PO SCH ×2 (08:32→17:37)
[2018-04-16] MEDS: CHOLESTYRAMINE/ASPARTAME 4 GM PACK PO SCH ×2 (08:33→20:48)
[2018-04-16] MEDS: ENOXAPARIN 30 MG/0.3 ML SYRINGE SUBCUT SCH (20:51)
[2018-04-17] MEDS: LEVOTHYROXINE 88 MCG TABLET PO SCH (05:50)
[2018-04-17] MEDS: AMITRIPTYLINE 25 MG TABLET PO SCH (09:44)
[2018-04-17] MEDS: CARVEDILOL 12.5 MG TABLET PO SCH ×2 (09:45→16:30)
[2018-04-17] MEDS: metOLazone 2.5 MG TABLET PO SCH ×2 (09:45→20:37)
[2018-04-17] MEDS: FUROSEMIDE 40 MG TABLET PO SCH ×2 (09:45→16:30)
[2018-04-17] MEDS: POTASSIUM CHLORIDE 8 MEQ CAPSULE PO SCH (09:45)
[2018-04-17] MEDS: amLODIPine 5 MG TABLET PO SCH (09:45)
[2018-04-17] MEDS: PANTOPRAZOLE 40 MG TABLET PO SCH (09:45)
[2018-04-17] MEDS: ATORVASTATIN 20 MG TABLET PO SCH (09:46)
[2018-04-17] MEDS: ISOSORBIDE MONONITRATE 60 MG TABLET PO SCH (09:46)
[2018-04-17] MEDS: ASPIRIN 325 MG TABLET PO SCH (09:46)
[2018-04-17] MEDS: DOCUSATE SODIUM 100 MG CAPSULE PO SCH ×2 (09:46→20:38)
[2018-04-17] MEDS: CHOLESTYRAMINE/ASPARTAME 4 GM PACK PO SCH ×2 (09:47→20:38)
[2018-04-17 12:53] LABS: Hepatitis A Ab IgM Quant 3.06 Index; Hepatitis A Ab IgM Result Positive (Negative); Hepatitis B Core IgM Quant 0.12 Index; Hepatitis B Core IgM Result Negative (Negative); Hepatitis B Surface Ag Quant 0.16 Index; Hepatitis B Surface Ag Result Negative (Negative); Hepatitis C Virus Ab Result Negative (Negative)
[2018-04-17] MEDS: ENOXAPARIN 30 MG/0.3 ML SYRINGE SUBCUT SCH (20:37)
[2018-04-18 04:01] LABS: Basophils % 0.4 % (0.0-0.8); Eosinophils # 0.7 10*3/uL (0.0-0.87); Hematocrit 26.7 VOL% (35.7-47.0); Hemoglobin 8.4 GM/DL (12.0-16.0); Immature Granulocytes % 0.4 %; Immature Granulocytes Absolute 0.03 #; Lymphocytes # 1.1 10*3/uL (1.4-4.0); Lymphocytes % 14.8 % (21.3-54.2); Mean Corpuscular HGB Conc 31.5 GM/DL (32-36); Mean Corpuscular Hemoglobin 27 PG (27-34); Mean Corpuscular Volume 84.8 FL (87-102); Monocytes # 0.5 10*3/uL (0.11-0.8); Monocytes % 7.3 % (1.7-12.7); Neutrophils # 5.1 10*3/uL (1.4-7.4); Neutrophils % 68.1 % (38.7-73.9); Platelet Count 207 T/CUMM (130-400); Red Blood Count 3.15 MC/CUMM (3.8-5.5); Red Cell Distribution Width 16.5 % (9.3-17.3); White Blood Count 7.4 T/CUMM (4-12)
[2018-04-18 04:23] LABS: Calcium 7.7 MG/DL (8.5-10.1); Osmolality,Calculated 272.8 MOS/KG (273-304)
[2018-04-18] MEDS: LEVOTHYROXINE 88 MCG TABLET PO SCH (05:46)
[2018-04-18] MEDS: ASPIRIN 325 MG TABLET PO SCH (08:50)
[2018-04-18] MEDS: ISOSORBIDE MONONITRATE 60 MG TABLET PO SCH (08:51)
[2018-04-18] MEDS: DOCUSATE SODIUM 100 MG CAPSULE PO SCH (08:51)
[2018-04-18] MEDS: POTASSIUM CHLORIDE 8 MEQ CAPSULE PO SCH (08:51)
[2018-04-18] MEDS: CARVEDILOL 12.5 MG TABLET PO SCH (08:51)
[2018-04-18] MEDS: amLODIPine 5 MG TABLET PO SCH (08:51)
[2018-04-18] MEDS: FUROSEMIDE 40 MG TABLET PO SCH (08:51)
[2018-04-18] MEDS: AMITRIPTYLINE 25 MG TABLET PO SCH (08:51)
[2018-04-18] MEDS: ATORVASTATIN 20 MG TABLET PO SCH (08:51)
[2018-04-18] MEDS: metOLazone 2.5 MG TABLET PO SCH (08:51)
[2018-04-18] MEDS: PANTOPRAZOLE 40 MG TABLET PO SCH (08:52)
[2018-04-18] MEDS: CHOLESTYRAMINE/ASPARTAME 4 GM PACK PO SCH (10:21)
[2018-04-18 11:34] VITALS: BP 158/68
== END 2018-04-18 12:27 | disposition home or self-care (01) | DRG 919 ==
LOC: N.ED 08:45 → N.EDINP 08:45 → N.2E 11:15
PROVIDERS: ADMIT Internal Medicine; ATTEND Internal Medicine

== ENCOUNTER 2018-08-03 22:55 | Observation (INO) ==
[2018-08-03] MEDS ORDERED: SODIUM CHLORIDE 0.9% 1,000 ML IV STA (23:10)
[2018-08-03 23:25] LABS: Basophils % 0.4 % (0.0-0.8); Eosinophils # 0.2 10*3/uL (0.0-0.87); Eosinophils % 3.2 % (0.00-10.9); Hematocrit 29.9 VOL% (35.7-47.0); Hemoglobin 9.3 GM/DL (12.0-16.0); Immature Granulocytes % 0.9 %; Immature Granulocytes Absolute 0.06 #; Lymphocytes # 0.8 10*3/uL (1.4-4.0); Lymphocytes % 12.1 % (21.3-54.2); Mean Corpuscular HGB Conc 31.1 GM/DL (32-36); Mean Corpuscular Hemoglobin 28 PG (27-34); Mean Corpuscular Volume 90.1 FL (87-102); Mean Platelet Volume 10.8 FL (9.6-12.0); Monocytes # 0.5 10*3/uL (0.11-0.8); Monocytes % 6.6 % (1.7-12.7); Neutrophils # 5.3 10*3/uL (1.4-7.4); Neutrophils % 76.8 % (38.7-73.9); Platelet Count 150 T/CUMM (130-400); Red Blood Count 3.32 MC/CUMM (3.8-5.5); Red Cell Distribution Width 15.6 % (9.3-17.3); White Blood Count 6.9 T/CUMM (4-12)
[2018-08-03 23:32] LABS: PT Patient Result 10.5 SECS
[2018-08-03 23:52] LABS: Alanine Aminotransferase 12 U/L (13-56); Albumin 3.3 G/DL (3.4-5.0); Alkaline Phosphatase 80 U/L (45-117); Aspartate Amino Transferase 15 U/L (0-37); Bilirubin,Total < 0.39 MG/DL (0.2-1.0); Blood Urea Nitrogen 25 MG/DL (7-18); Calcium 8.1 MG/DL (8.5-10.1); Glucose 131 MG/DL (74-106); Osmolality,Calculated 284.4 MOS/KG (273-304); Sodium 140 MMOL/L (136-145); Total Protein 7.1 G/DL (6.4-8.3)
[2018-08-04 05:08] LABS: Basophils % 0.3 % (0.0-0.8); Eosinophils # 0.1 10*3/uL (0.0-0.87); Eosinophils % 1.6 % (0.00-10.9); Hematocrit 27.9 VOL% (35.7-47.0); Hemoglobin 8.7 GM/DL (12.0-16.0); Immature Granulocytes % 0.5 %; Immature Granulocytes Absolute 0.04 #; Lymphocytes % 10.9 % (21.3-54.2); Mean Corpuscular HGB Conc 31.2 GM/DL (32-36); Mean Corpuscular Hemoglobin 28 PG (27-34); Mean Platelet Volume 10.8 FL (9.6-12.0); Monocytes # 0.7 10*3/uL (0.11-0.8); Monocytes % 8.2 % (1.7-12.7); Neutrophils # 6.9 10*3/uL (1.4-7.4); Neutrophils % 78.5 % (38.7-73.9); Platelet Count 132 T/CUMM (130-400); Red Cell Distribution Width 15.8 % (9.3-17.3); White Blood Count 8.8 T/CUMM (4-12)
[2018-08-04 05:38] LABS: Albumin 3.5 G/DL (3.4-5.0); Bilirubin,Total 1.6 MG/DL (0.2-1.0); Calcium 8.4 MG/DL (8.5-10.1); Osmolality,Calculated 286.3 MOS/KG (273-304); Potassium 4.2 MMOL/L (3.5-5.1); Total Protein 6.7 G/DL (6.4-8.3)
[2018-08-04] MEDS: ACETAMINOPHEN 325 MG TABLET PO PRN ×2 (10:30→21:11)
[2018-08-04] MEDS: hydrALAZINE 25 MG TABLET PO PRN (21:11)
[2018-08-05] MEDS: ACETAMINOPHEN 325 MG TABLET PO PRN (20:45)
[2018-08-05] MEDS: hydrALAZINE 25 MG TABLET PO PRN (20:46)
[2018-08-06] MEDS: hydrALAZINE 25 MG TABLET PO PRN (03:48)
[2018-08-06] MEDS ORDERED: CHOLESTYRAMINE/ASPARTAME 4 GM PACK PO PRN (09:56)
[2018-08-06] MEDS ORDERED: NITROGLYCERIN SL 0.4 MG TABLET SL PRN (09:56)
[2018-08-06] MEDS: CARVEDILOL 12.5 MG TABLET PO SCH (17:25)
[2018-08-06] MEDS: ACETAMINOPHEN 325 MG TABLET PO PRN (21:27)
[2018-08-07] MEDS ORDERED: ISOSORBIDE MONONITRATE 60 MG TABLET PO SCH (09:00)
[2018-08-07] MEDS ORDERED: PANTOPRAZOLE 40 MG TABLET PO SCH (09:00)
[2018-08-07] MEDS ORDERED: POTASSIUM CHLORIDE 8 MEQ CAPSULE PO SCH (09:00)
[2018-08-07] MEDS ORDERED: amLODIPine 10 MG TABLET PO SCH (09:00)
[2018-08-07] MEDS ORDERED: LEVOTHYROXINE 88 MCG TABLET PO SCH (09:00)
[2018-08-07] MEDS ORDERED: ATORVASTATIN 20 MG TABLET PO SCH (09:00)
[2018-08-07] MEDS ORDERED: AMITRIPTYLINE 25 MG TABLET PO SCH (09:00)
[2018-08-07] MEDS: CARVEDILOL 12.5 MG TABLET PO SCH (09:43)
[2018-08-07 12:07] VITALS: BP 101/50
== END 2018-08-07 12:10 | disposition home health service (06) ==
LOC: N.EDINP 22:55 → N.ED 22:55 → N.3E 08-04 03:04
PROVIDERS: ADMIT Internal Medicine; ATTEND Internal Medicine

== ENCOUNTER 2018-08-07 12:08 | Inpatient (IN) ==
[2018-08-07] MEDS ORDERED: SODIUM CHLORIDE 0.9% 500 ML IV STA (12:18)
[2018-08-07 12:53] LABS: Basophils # 0.1 10*3/uL (0.0-0.2); Basophils % 0.7 % (0.0-0.8); Eosinophils # 0.3 10*3/uL (0.0-0.87); Eosinophils % 4.5 % (0.00-10.9); Hematocrit 28.9 VOL% (35.7-47.0); Hemoglobin 8.8 GM/DL (12.0-16.0); Immature Granulocytes % 0.4 %; Immature Granulocytes Absolute 0.03 #; Lymphocytes # 1.3 10*3/uL (1.4-4.0); Lymphocytes % 18.1 % (21.3-54.2); Mean Corpuscular HGB Conc 30.4 GM/DL (32-36); Mean Corpuscular Hemoglobin 28 PG (27-34); Mean Corpuscular Volume 90.6 FL (87-102); Mean Platelet Volume 10.8 FL (9.6-12.0); Monocytes # 0.7 10*3/uL (0.11-0.8); Monocytes % 9.5 % (1.7-12.7); Neutrophils # 4.8 10*3/uL (1.4-7.4); Neutrophils % 66.8 % (38.7-73.9); Platelet Count 164 T/CUMM (130-400); Red Blood Count 3.19 MC/CUMM (3.8-5.5); Red Cell Distribution Width 15.6 % (9.3-17.3); White Blood Count 7.1 T/CUMM (4-12)
[2018-08-07 13:07] LABS: INR 0.9; PT Patient Result 10.3 SECS; Partial Thromboplastin Time 24.5 SECS (0-40)
[2018-08-07 13:30] LABS: Alanine Aminotransferase < 9 U/L (13-56); Albumin 3.4 G/DL (3.4-5.0); Alkaline Phosphatase 62 U/L (45-117); Aspartate Amino Transferase 10 U/L (0-37); Blood Urea Nitrogen 66 MG/DL (7-18); Calcium 8.4 MG/DL (8.5-10.1); Glucose 137 MG/DL (74-106); Osmolality,Calculated 293.8 MOS/KG (273-304); Sodium 137 MMOL/L (136-145); Total Protein 6.9 G/DL (6.4-8.3)
[2018-08-07] MEDS ORDERED: NITROGLYCERIN SL 0.4 MG TABLET SL PRN (15:15)
[2018-08-07] MEDS ORDERED: ACETAMINOPHEN 325 MG TABLET PO PRN (15:15)
[2018-08-07] MEDS ORDERED: ONDANSETRON 4 MG/2 ML VIAL IV PRN (15:15)
[2018-08-07] MEDS ORDERED: CHOLESTYRAMINE/ASPARTAME 4 GM PACK PO PRN (15:15)
[2018-08-07] MEDS ORDERED: SODIUM CHLORIDE 0.9% 1,000 ML IV SCH (15:15)
[2018-08-07] MEDS: CARVEDILOL 12.5 MG TABLET PO SCH (17:00)
[2018-08-07 20:54] LABS: Apearance,Urine CLEAR (Clear); Bacteria,Urine Occasional /HPF (Few); Bilirubin,Urine Negative (Negative); Blood, Urine Negative (Negative); Glucose,Urine (UA) 50 mg/dL (Negative); Ketones,Urine Negative (Negative); Mucus,Urine Occasional /LPF (Occasional); Nitrite,Urine Negative (Negative); Protein,Urine 100 MG/DL; Squamous Epithelial Cell,Urine Occasional /HPF (0-10); Urine Color Yellow (Yellow); Urine Urobilinogen < 2.0 EU/DL (0.2-1.0); WBC,Urine 1 /HPF (0-6)
[2018-08-07] MEDS: DOCUSATE SODIUM 100 MG CAPSULE PO SCH (21:07)
[2018-08-08 04:15] LABS: Basophils % 0.6 % (0.0-0.8); Eosinophils # 0.4 10*3/uL (0.0-0.87); Eosinophils % 4.9 % (0.00-10.9); Hematocrit 27.1 VOL% (35.7-47.0); Hemoglobin 8.3 GM/DL (12.0-16.0); Immature Granulocytes % 0.3 %; Immature Granulocytes Absolute 0.02 #; Lymphocytes # 1.6 10*3/uL (1.4-4.0); Lymphocytes % 21.9 % (21.3-54.2); Mean Corpuscular HGB Conc 30.6 GM/DL (32-36); Mean Corpuscular Hemoglobin 28 PG (27-34); Monocytes # 0.6 10*3/uL (0.11-0.8); Monocytes % 8.4 % (1.7-12.7); Neutrophils # 4.5 10*3/uL (1.4-7.4); Neutrophils % 63.9 % (38.7-73.9); Platelet Count 159 T/CUMM (130-400); Red Blood Count 3.01 MC/CUMM (3.8-5.5); Red Cell Distribution Width 15.7 % (9.3-17.3); White Blood Count 7.1 T/CUMM (4-12)
[2018-08-08 04:32] LABS: Calcium 8.1 MG/DL (8.5-10.1); Osmolality,Calculated 298.5 MOS/KG (273-304); Potassium 4.6 MMOL/L (3.5-5.1)
[2018-08-08] MEDS ORDERED: hydrALAZINE 25 MG TABLET PO PRN (08:48)
[2018-08-08] MEDS ORDERED: PANTOPRAZOLE 40 MG TABLET PO SCH (09:00)
[2018-08-08] MEDS: AMITRIPTYLINE 25 MG TABLET PO SCH (09:35)
[2018-08-08] MEDS: POTASSIUM CHLORIDE 8 MEQ CAPSULE PO SCH (09:36)
[2018-08-08] MEDS: ATORVASTATIN 20 MG TABLET PO SCH (09:36)
[2018-08-08] MEDS: PANTOPRAZOLE 40 MG TABLET PO SCH (09:36)
[2018-08-08] MEDS: amLODIPine 10 MG TABLET PO SCH (09:36)
[2018-08-08] MEDS: LEVOTHYROXINE 88 MCG TABLET PO SCH (09:36)
[2018-08-08] MEDS: ISOSORBIDE MONONITRATE 60 MG TABLET PO SCH (09:36)
[2018-08-08] MEDS: CARVEDILOL 12.5 MG TABLET PO SCH ×3 (09:37→18:23)
[2018-08-08] MEDS: DOCUSATE SODIUM 100 MG CAPSULE PO SCH ×2 (09:38→20:59)
[2018-08-08 10:11] LABS: Hepatitis A Ab IgM Result Positive (Negative); Hepatitis B Core IgM Result Negative (Negative); Hepatitis B Surface Ag Quant 0.21 Index; Hepatitis B Surface Ag Result Negative (Negative); Hepatitis C Virus Ab Quant 0.05 Index; Hepatitis C Virus Ab Result Negative (Negative)
[2018-08-08] MEDS ORDERED: HEPARIN 10,000 UNIT/10 ML VIAL IV PRN (17:12)
[2018-08-09] MEDS: AMITRIPTYLINE 25 MG TABLET PO SCH (09:00)
[2018-08-09] MEDS: DOCUSATE SODIUM 100 MG CAPSULE PO SCH ×2 (09:01→23:10)
[2018-08-09] MEDS: ISOSORBIDE MONONITRATE 60 MG TABLET PO SCH (09:01)
[2018-08-09] MEDS: POTASSIUM CHLORIDE 8 MEQ CAPSULE PO SCH (09:02)
[2018-08-09] MEDS: amLODIPine 10 MG TABLET PO SCH (09:02)
[2018-08-09] MEDS: PANTOPRAZOLE 40 MG TABLET PO SCH (09:02)
[2018-08-09] MEDS: LEVOTHYROXINE 88 MCG TABLET PO SCH (09:02)
[2018-08-09] MEDS: CARVEDILOL 12.5 MG TABLET PO SCH ×2 (09:02→16:12)
[2018-08-09] MEDS: ATORVASTATIN 20 MG TABLET PO SCH (09:02)
[2018-08-10] MEDS: amLODIPine 10 MG TABLET PO SCH (10:04)
[2018-08-10] MEDS: AMITRIPTYLINE 25 MG TABLET PO SCH (10:04)
[2018-08-10] MEDS: CARVEDILOL 12.5 MG TABLET PO SCH ×2 (10:05→18:00)
[2018-08-10] MEDS: LEVOTHYROXINE 88 MCG TABLET PO SCH (10:05)
[2018-08-10] MEDS: ISOSORBIDE MONONITRATE 60 MG TABLET PO SCH (10:06)
[2018-08-10] MEDS: PANTOPRAZOLE 40 MG TABLET PO SCH (10:06)
[2018-08-10] MEDS: POTASSIUM CHLORIDE 8 MEQ CAPSULE PO SCH (10:06)
[2018-08-10] MEDS: ATORVASTATIN 20 MG TABLET PO SCH (10:06)
[2018-08-10] MEDS: DOCUSATE SODIUM 100 MG CAPSULE PO SCH ×2 (10:07→22:13)
[2018-08-11 08:16] VITALS: BP 188/67
[2018-08-11] MEDS: AMITRIPTYLINE 25 MG TABLET PO SCH (08:49)
[2018-08-11] MEDS: CARVEDILOL 12.5 MG TABLET PO SCH (08:50)
[2018-08-11] MEDS: amLODIPine 10 MG TABLET PO SCH (08:51)
[2018-08-11] MEDS: ISOSORBIDE MONONITRATE 60 MG TABLET PO SCH (08:52)
[2018-08-11] MEDS: LEVOTHYROXINE 88 MCG TABLET PO SCH (08:52)
[2018-08-11] MEDS: POTASSIUM CHLORIDE 8 MEQ CAPSULE PO SCH (08:52)
[2018-08-11] MEDS: DOCUSATE SODIUM 100 MG CAPSULE PO SCH (08:52)
[2018-08-11] MEDS: PANTOPRAZOLE 40 MG TABLET PO SCH (08:53)
[2018-08-11] MEDS: ATORVASTATIN 20 MG TABLET PO SCH (08:53)
== END 2018-08-11 12:43 | DRG 312 ==
LOC: N.ED 12:08 → N.EDINP 12:44 → N.ICU 20:55 → N.TELES 08-08 14:18
PROVIDERS: ADMIT Internal Medicine; ATTEND Internal Medicine

== ENCOUNTER 2018-10-29 05:57 | Inpatient (IN) ==
[2018-10-29 06:56] LABS: Basophils % 0.5 % (0.0-0.8); Eosinophils % 0.5 % (0.00-10.9); Hematocrit 26.3 VOL% (35.7-47.0); Hemoglobin 8.3 GM/DL (12.0-16.0); Immature Granulocytes % 0.4 %; Immature Granulocytes Absolute 0.03 #; Lymphocytes # 0.6 10*3/uL (1.4-4.0); Lymphocytes % 8.8 % (21.3-54.2); Mean Corpuscular HGB Conc 31.6 GM/DL (32-36); Mean Corpuscular Volume 95.3 FL (87-102); Mean Platelet Volume 10.4 FL (9.6-12.0); Monocytes % 7.7 % (1.7-12.7); Neutrophils % 82.1 % (38.7-73.9); Platelet Count 155 T/CUMM (130-400); Red Blood Count 2.76 MC/CUMM (3.8-5.5); Red Cell Distribution Width 13.8 % (9.3-17.3); White Blood Count 7.3 T/CUMM (4-12)
[2018-10-29 07:05] LABS: PT Patient Result 10.7 SECS
[2018-10-29 07:15] LABS: Calcium 7.7 MG/DL (8.5-10.1); Osmolality,Calculated 286.8 MOS/KG (273-304)
[2018-10-29] MEDS ORDERED: LEVOFLOXACIN INJ 500 MG in PREMIX 1 EACH IV STA (07:24)
[2018-10-29] MEDS ORDERED: ONDANSETRON 4 MG/2 ML VIAL IV PRN (08:20)
[2018-10-29] MEDS: PANTOPRAZOLE 40 MG TABLET PO SCH (09:36)
[2018-10-29] MEDS: DOCUSATE SODIUM 100 MG CAPSULE PO SCH ×2 (09:36→21:23)
[2018-10-29] MEDS: cefTRIAXone 1,000 MG in SYRINGE 1 EACH IV SCH (10:00)
[2018-10-29] MEDS ORDERED: traMADol 50 MG TABLET PO PRN (11:06)
[2018-10-29] MEDS ORDERED: NITROGLYCERIN SL 0.4 MG TABLET SL PRN (11:06)
[2018-10-29] MEDS ORDERED: CHOLESTYRAMINE/ASPARTAME 4 GM PACK PO PRN (11:06)
[2018-10-29] MEDS: ACETAMINOPHEN 325 MG TABLET PO PRN (13:01)
[2018-10-29] MEDS: CARVEDILOL 12.5 MG TABLET PO SCH (16:04)
[2018-10-29] MEDS: metOLazone 5 MG TABLET PO SCH (21:23)
[2018-10-29] MEDS: FUROSEMIDE 40 MG TABLET PO SCH (21:23)
[2018-10-30] MEDS: ATORVASTATIN 20 MG TABLET PO SCH (08:29)
[2018-10-30] MEDS: metOLazone 5 MG TABLET PO SCH (08:29)
[2018-10-30] MEDS: LEVOTHYROXINE 88 MCG TABLET PO SCH (08:29)
[2018-10-30] MEDS: ACETAMINOPHEN 325 MG TABLET PO PRN (08:30)
[2018-10-30] MEDS: FUROSEMIDE 40 MG TABLET PO SCH (08:30)
[2018-10-30] MEDS: PANTOPRAZOLE 40 MG TABLET PO SCH (08:30)
[2018-10-30] MEDS: CARVEDILOL 12.5 MG TABLET PO SCH (08:31)
[2018-10-30] MEDS: cefTRIAXone 1,000 MG in SYRINGE 1 EACH IV SCH (08:31)
[2018-10-30] MEDS ORDERED: ALBUTEROL/IPRATROPIUM 3 ML NEB RESP TX PRN ×2 (08:36→17:50)
[2018-10-30] MEDS ORDERED: FUROSEMIDE 40 MG/4 ML VIAL IV ONE ×2 (08:37→21:00)
[2018-10-30] MEDS: DOCUSATE SODIUM 100 MG CAPSULE PO SCH ×2 (08:42→20:36)
[2018-10-30] MEDS ORDERED: amLODIPine 10 MG TABLET PO SCH (09:00)
[2018-10-30] MEDS ORDERED: ISOSORBIDE MONONITRATE 60 MG TABLET PO SCH (09:00)
[2018-10-30] MEDS: ALBUTEROL/IPRATROPIUM 3 ML NEB RESP TX SCH ×2 (12:52→19:10)
[2018-10-30] MEDS: ENOXAPARIN 30 MG/0.3 ML SYRINGE SUBCUT SCH (13:45)
[2018-10-30] MEDS ORDERED: ALBUTEROL/IPRATROPIUM 3 ML NEB RESP TX SCH (15:00)
[2018-10-30] MEDS ORDERED: SODIUM CHLORIDE 0.9% 500 ML IV ONE (15:44)
[2018-10-31] MEDS: ALBUTEROL/IPRATROPIUM 3 ML NEB RESP TX SCH ×4 (02:38→19:10)
[2018-10-31 04:34] LABS: Osmolality,Calculated 289.4 MOS/KG (273-304)
[2018-10-31 04:56] LABS: Basophils % 0.4 % (0.0-0.8); Eosinophils # 0.2 10*3/uL (0.0-0.87); Eosinophils % 3.9 % (0.00-10.9); Hematocrit 27.1 VOL% (35.7-47.0); Hemoglobin 8.5 GM/DL (12.0-16.0); Immature Granulocytes % 0.6 %; Immature Granulocytes Absolute 0.03 #; Lymphocytes # 0.9 10*3/uL (1.4-4.0); Lymphocytes % 19.1 % (21.3-54.2); Mean Corpuscular HGB Conc 31.4 GM/DL (32-36); Mean Corpuscular Volume 94.4 FL (87-102); Mean Platelet Volume 11.3 FL (9.6-12.0); Red Blood Count 2.87 MC/CUMM (3.8-5.5); Red Cell Distribution Width 13.5 % (9.3-17.3)
[2018-10-31 05:02] LABS: Platelet Count 120 T/CUMM (130-400); White Blood Count 4.7 T/CUMM (4-12)
[2018-10-31] MEDS ORDERED: POTASSIUM CHLORIDE 20 MEQ TABLET PO ONE (07:55)
[2018-10-31] MEDS: PANTOPRAZOLE 40 MG TABLET PO SCH (08:18)
[2018-10-31] MEDS: LEVOTHYROXINE 88 MCG TABLET PO SCH (08:18)
[2018-10-31] MEDS: ATORVASTATIN 20 MG TABLET PO SCH (08:19)
[2018-10-31] MEDS: LEVOFLOXACIN INJ 250 MG in PREMIX 1 EACH IV SCH (08:19)
[2018-10-31] MEDS: DOCUSATE SODIUM 100 MG CAPSULE PO SCH ×4 (08:19→20:44)
[2018-10-31] MEDS: cefTRIAXone 1,000 MG in SYRINGE 1 EACH IV SCH (09:05)
[2018-10-31] MEDS: POTASSIUM CHLORIDE 8 MEQ CAPSULE PO SCH (12:35)
[2018-10-31] MEDS: ENOXAPARIN 30 MG/0.3 ML SYRINGE SUBCUT SCH (13:42)
[2018-10-31] MEDS: ACETAMINOPHEN 325 MG TABLET PO PRN (13:43)
[2018-11-01] MEDS: ALBUTEROL/IPRATROPIUM 3 ML NEB RESP TX SCH ×4 (00:35→19:40)
[2018-11-01 05:40] LABS: Osmolality,Calculated 288.4 MOS/KG (273-304)
[2018-11-01] MEDS: cefTRIAXone 1,000 MG in SYRINGE 1 EACH IV SCH (09:15)
[2018-11-01] MEDS: POTASSIUM CHLORIDE 8 MEQ CAPSULE PO SCH (09:15)
[2018-11-01] MEDS: ATORVASTATIN 20 MG TABLET PO SCH (09:16)
[2018-11-01] MEDS: CARVEDILOL 3.125 MG TABLET PO SCH ×2 (09:16→21:05)
[2018-11-01] MEDS: PANTOPRAZOLE 40 MG TABLET PO SCH (09:16)
[2018-11-01] MEDS: DOCUSATE SODIUM 100 MG CAPSULE PO SCH ×2 (09:16→21:05)
[2018-11-01] MEDS: LEVOTHYROXINE 88 MCG TABLET PO SCH (09:16)
[2018-11-01] MEDS: FUROSEMIDE 40 MG TABLET PO SCH ×2 (09:16→10:29)
[2018-11-01] MEDS: ENOXAPARIN 30 MG/0.3 ML SYRINGE SUBCUT SCH (14:42)
[2018-11-01] MEDS ORDERED: NEOMYCIN/POLYMYXIN/BACITRACIN OINT 0.9 GM PACK TOP PRN (18:04)
[2018-11-02] MEDS: ALBUTEROL/IPRATROPIUM 3 ML NEB RESP TX SCH ×4 (00:51→19:10)
[2018-11-02] MEDS: FUROSEMIDE 40 MG TABLET PO SCH (07:39)
[2018-11-02] MEDS: DOCUSATE SODIUM 100 MG CAPSULE PO SCH ×2 (08:11→21:50)
[2018-11-02] MEDS: POTASSIUM CHLORIDE 8 MEQ CAPSULE PO SCH (08:11)
[2018-11-02] MEDS: LEVOTHYROXINE 88 MCG TABLET PO SCH (08:11)
[2018-11-02] MEDS: CARVEDILOL 3.125 MG TABLET PO SCH ×2 (08:11→21:50)
[2018-11-02] MEDS: cefTRIAXone 1,000 MG in SYRINGE 1 EACH IV SCH ×2 (08:11→08:38)
[2018-11-02] MEDS: ATORVASTATIN 20 MG TABLET PO SCH (08:11)
[2018-11-02] MEDS: LEVOFLOXACIN INJ 250 MG in PREMIX 1 EACH IV SCH (08:11)
[2018-11-02] MEDS: PANTOPRAZOLE 40 MG TABLET PO SCH (08:11)
[2018-11-02] MEDS: ENOXAPARIN 30 MG/0.3 ML SYRINGE SUBCUT SCH (13:34)
[2018-11-03] MEDS: ALBUTEROL/IPRATROPIUM 3 ML NEB RESP TX SCH ×4 (00:02→19:54)
[2018-11-03] MEDS: CARVEDILOL 3.125 MG TABLET PO SCH ×2 (06:51→20:22)
[2018-11-03] MEDS ORDERED: CARVEDILOL 3.125 MG TABLET PO ONE (08:30)
[2018-11-03] MEDS: LEVOTHYROXINE 88 MCG TABLET PO SCH (09:17)
[2018-11-03] MEDS: POTASSIUM CHLORIDE 8 MEQ CAPSULE PO SCH (09:18)
[2018-11-03] MEDS: ATORVASTATIN 20 MG TABLET PO SCH (09:18)
[2018-11-03] MEDS: DOCUSATE SODIUM 100 MG CAPSULE PO SCH ×2 (09:18→20:23)
[2018-11-03] MEDS: PANTOPRAZOLE 40 MG TABLET PO SCH (09:18)
[2018-11-03] MEDS: ACETAMINOPHEN 325 MG TABLET PO PRN (11:13)
[2018-11-03] MEDS: ENOXAPARIN 30 MG/0.3 ML SYRINGE SUBCUT SCH (17:17)
[2018-11-04] MEDS: ALBUTEROL/IPRATROPIUM 3 ML NEB RESP TX SCH ×4 (01:32→19:05)
[2018-11-04 06:46] LABS: Basophils % 0.4 % (0.0-0.8); Eosinophils # 0.4 10*3/uL (0.0-0.87); Eosinophils % 6.4 % (0.00-10.9); Hematocrit 26.8 VOL% (35.7-47.0); Hemoglobin 8.3 GM/DL (12.0-16.0); Immature Granulocytes % 0.6 %; Immature Granulocytes Absolute 0.04 #; Lymphocytes # 1.3 10*3/uL (1.4-4.0); Lymphocytes % 18.3 % (21.3-54.2); Mean Corpuscular Volume 94.7 FL (87-102); Mean Platelet Volume 11.2 FL (9.6-12.0); Monocytes % 6.7 % (1.7-12.7); Neutrophils % 67.6 % (38.7-73.9); Platelet Count 159 T/CUMM (130-400); Red Blood Count 2.83 MC/CUMM (3.8-5.5); Red Cell Distribution Width 13.3 % (9.3-17.3); White Blood Count 6.8 T/CUMM (4-12)
[2018-11-04 07:07] LABS: Calcium 8.5 MG/DL (8.5-10.1); Osmolality,Calculated 286.8 MOS/KG (273-304)
[2018-11-04] MEDS: ATORVASTATIN 20 MG TABLET PO SCH (08:57)
[2018-11-04] MEDS: CARVEDILOL 3.125 MG TABLET PO SCH (08:57)
[2018-11-04] MEDS: LEVOTHYROXINE 88 MCG TABLET PO SCH (08:57)
[2018-11-04] MEDS: POTASSIUM CHLORIDE 8 MEQ CAPSULE PO SCH (08:57)
[2018-11-04] MEDS: PANTOPRAZOLE 40 MG TABLET PO SCH (08:58)
[2018-11-04] MEDS: DOCUSATE SODIUM 100 MG CAPSULE PO SCH ×2 (09:00→21:35)
[2018-11-04] MEDS: LEVOFLOXACIN INJ 250 MG in PREMIX 1 EACH IV SCH (09:27)
[2018-11-04] MEDS: ENOXAPARIN 30 MG/0.3 ML SYRINGE SUBCUT SCH (15:16)
[2018-11-04] MEDS: CARVEDILOL 12.5 MG TABLET PO SCH (21:35)
[2018-11-05] MEDS: ALBUTEROL/IPRATROPIUM 3 ML NEB RESP TX SCH ×2 (01:16→06:49)
[2018-11-05 08:52] VITALS: BP 159/60
[2018-11-05] MEDS: CARVEDILOL 12.5 MG TABLET PO SCH (09:18)
[2018-11-05] MEDS: LEVOTHYROXINE 88 MCG TABLET PO SCH (09:18)
[2018-11-05] MEDS: PANTOPRAZOLE 40 MG TABLET PO SCH (09:18)
[2018-11-05] MEDS: POTASSIUM CHLORIDE 8 MEQ CAPSULE PO SCH (09:18)
[2018-11-05] MEDS: DOCUSATE SODIUM 100 MG CAPSULE PO SCH (09:18)
[2018-11-05] MEDS: ATORVASTATIN 20 MG TABLET PO SCH (09:18)
== END 2018-11-05 12:10 | disposition home or self-care (01) | DRG 193 ==
LOC: N.ED 05:57 → N.EDINP 08:20 → N.5E 10:23 → N.ICU 10-30 11:45 → N.5E 10-31 11:07
PROVIDERS: ADMIT Internal Medicine; ATTEND Internal Medicine

== ENCOUNTER 2019-03-17 20:56 | Inpatient (IN) ==
[2019-03-17 21:54] LABS: Basophils # 0.1 10*3/uL (0.0-0.2); Basophils % 0.6 % (0.0-0.8); Eosinophils # 0.4 10*3/uL (0.0-0.87); Eosinophils % 4.7 % (0.00-10.9); Hematocrit 36.4 VOL% (35.7-47.0); Hemoglobin 11.7 GM/DL (12.0-16.0); Immature Granulocytes % 0.3 %; Immature Granulocytes Absolute 0.03 #; Lymphocytes # 1.1 10*3/uL (1.4-4.0); Lymphocytes % 11.7 % (21.3-54.2); Mean Corpuscular HGB Conc 32.1 GM/DL (32-36); Mean Corpuscular Volume 88.1 FL (87-102); Mean Platelet Volume 10.5 FL (9.6-12.0); Monocytes % 7.5 % (1.7-12.7); Neutrophils % 75.2 % (38.7-73.9); Platelet Count 202 T/CUMM (130-400); Red Blood Count 4.13 MC/CUMM (3.8-5.5); Red Cell Distribution Width 14.8 % (9.3-17.3); White Blood Count 9.3 T/CUMM (4-12)
[2019-03-17 22:10] LABS: Albumin 2.7 G/DL (3.4-5.0); Bilirubin,Total 0.6 MG/DL (0.2-1.0); Calcium 8.1 MG/DL (8.5-10.1); Osmolality,Calculated 283.8 MOS/KG (273-304); Total Protein 6.6 G/DL (6.4-8.3)
[2019-03-17 22:36] LABS: PT Patient Result 10.7 SECS (9.6-12.2)
[2019-03-17] MEDS ORDERED: FUROSEMIDE 100 MG/10 ML VIAL IV STA (22:56)
[2019-03-17] MEDS ORDERED: ONDANSETRON 4 MG/2 ML VIAL IV PRN (23:03)
[2019-03-17] MEDS ORDERED: ACETAMINOPHEN 325 MG TABLET PO PRN (23:03)
[2019-03-17] MEDS ORDERED: FUROSEMIDE 40 MG/4 ML VIAL ONE (23:20)
[2019-03-18 07:04] LABS: Basophils # 0.1 10*3/uL (0.0-0.2); Basophils % 0.9 % (0.0-0.8); Eosinophils # 0.4 10*3/uL (0.0-0.87); Eosinophils % 5.5 % (0.00-10.9); Hematocrit 34.4 VOL% (35.7-47.0); Hemoglobin 11.1 GM/DL (12.0-16.0); Immature Granulocytes % 0.3 %; Immature Granulocytes Absolute 0.02 #; Lymphocytes % 13.6 % (21.3-54.2); Mean Corpuscular HGB Conc 32.3 GM/DL (32-36); Mean Corpuscular Volume 87.5 FL (87-102); Mean Platelet Volume 11.2 FL (9.6-12.0); Monocytes % 8.7 % (1.7-12.7); Platelet Count 171 T/CUMM (130-400); Red Blood Count 3.93 MC/CUMM (3.8-5.5); Red Cell Distribution Width 14.7 % (9.3-17.3); White Blood Count 7.5 T/CUMM (4-12)
[2019-03-18 07:37] LABS: Albumin 2.5 G/DL (3.4-5.0); Bilirubin,Total 0.6 MG/DL (0.2-1.0); Osmolality,Calculated 284.7 MOS/KG (273-304); Total Protein 6.1 G/DL (6.4-8.3)
[2019-03-18] MEDS: PANTOPRAZOLE 40 MG TABLET PO SCH (08:35)
[2019-03-18] MEDS: FUROSEMIDE 40 MG/4 ML VIAL IV SCH ×2 (08:35→16:29)
[2019-03-18] MEDS ORDERED: MAGNESIUM SULF RIDER 2 GM in PREMIX 1 EACH IV ONE (10:00)
[2019-03-18] MEDS ORDERED: CHOLESTYRAMINE/ASPARTAME 4 GM PACK PO PRN (12:13)
[2019-03-18] MEDS ORDERED: NITROGLYCERIN SL 0.4 MG TABLET SL PRN (12:13)
[2019-03-18] MEDS ORDERED: traMADol 50 MG TABLET PO PRN (12:13)
[2019-03-18] MEDS: carvediloL 12.5 MG TABLET PO SCH (16:29)
[2019-03-19] MEDS ORDERED: hydrALAZINE 20 MG/1 ML VIAL IV ONE ×2 (05:39→06:00)
[2019-03-19] MEDS: LEVOTHYROXINE 88 MCG TABLET PO SCH (06:05)
[2019-03-19] MEDS: amLODIPine 10 MG TABLET PO SCH (09:12)
[2019-03-19] MEDS: carvediloL 12.5 MG TABLET PO SCH ×2 (09:12→17:23)
[2019-03-19] MEDS: POTASSIUM CHLORIDE 8 MEQ CAPSULE PO SCH (09:12)
[2019-03-19] MEDS: ISOSORBIDE MONONITRATE 60 MG TABLET PO SCH (09:12)
[2019-03-19] MEDS: ATORVASTATIN 20 MG TABLET PO SCH (09:12)
[2019-03-19] MEDS: PANTOPRAZOLE 40 MG TABLET PO SCH (09:12)
[2019-03-19] MEDS: FUROSEMIDE 40 MG/4 ML VIAL IV SCH ×2 (09:13→14:59)
[2019-03-20 04:16] LABS: Basophils % 0.5 % (0.0-0.8); Eosinophils # 0.6 10*3/uL (0.0-0.87); Eosinophils % 6.4 % (0.00-10.9); Hemoglobin 11.4 GM/DL (12.0-16.0); Immature Granulocytes % 0.3 %; Immature Granulocytes Absolute 0.03 #; Lymphocytes # 1.1 10*3/uL (1.4-4.0); Lymphocytes % 13.2 % (21.3-54.2); Mean Corpuscular HGB Conc 31.7 GM/DL (32-36); Mean Corpuscular Volume 87.4 FL (87-102); Mean Platelet Volume 11.2 FL (9.6-12.0); Neutrophils % 69.6 % (38.7-73.9); Platelet Count 182 T/CUMM (130-400); Red Blood Count 4.12 MC/CUMM (3.8-5.5); Red Cell Distribution Width 14.9 % (9.3-17.3); White Blood Count 8.6 T/CUMM (4-12)
[2019-03-20 04:34] LABS: Calcium 8.5 MG/DL (8.5-10.1); Osmolality,Calculated 290.1 MOS/KG (273-304)
[2019-03-20] MEDS: LEVOTHYROXINE 88 MCG TABLET PO SCH (05:43)
[2019-03-20] MEDS ORDERED: POTASSIUM CHLORIDE 20 MEQ TABLET PO ONE (08:05)
[2019-03-20] MEDS ORDERED: LEVOFLOXACIN 250 MG TABLET PO SCH (09:00)
[2019-03-20] MEDS: FUROSEMIDE 40 MG/4 ML VIAL IV SCH (09:32)
[2019-03-20] MEDS: ATORVASTATIN 20 MG TABLET PO SCH (09:32)
[2019-03-20] MEDS: amLODIPine 10 MG TABLET PO SCH (09:32)
[2019-03-20] MEDS: PANTOPRAZOLE 40 MG TABLET PO SCH (09:32)
[2019-03-20] MEDS: carvediloL 12.5 MG TABLET PO SCH (09:32)
[2019-03-20] MEDS: ISOSORBIDE MONONITRATE 60 MG TABLET PO SCH (09:32)
[2019-03-20] MEDS: POTASSIUM CHLORIDE 8 MEQ CAPSULE PO SCH (09:32)
[2019-03-20 12:07] VITALS: BP 119/65
== END 2019-03-20 11:32 | disposition home health service (06) | DRG 640 ==
LOC: N.ED 20:56 → N.EDINP 23:02 → N.TELEN 23:37
PROVIDERS: ADMIT Internal Medicine; ATTEND Internal Medicine

== ENCOUNTER 2019-06-20 19:43 | Inpatient (IN) ==
[2019-06-20 20:17] LABS: Basophils # 0.1 10*3/uL (0.0-0.2); Basophils % 0.5 % (0.0-0.8); Eosinophils # 0.4 10*3/uL (0.0-0.87); Eosinophils % 3.5 % (0.00-10.9); Hematocrit 34.3 VOL% (35.7-47.0); Hemoglobin 10.8 GM/DL (12.0-16.0); Immature Granulocytes % 0.6 %; Immature Granulocytes Absolute 0.07 #; Lymphocytes % 8.7 % (21.3-54.2); Mean Corpuscular HGB Conc 31.5 GM/DL (32-36); Mean Corpuscular Volume 92.5 FL (87-102); Mean Platelet Volume 9.7 FL (9.6-12.0); Monocytes % 7.3 % (1.7-12.7); Neutrophils % 79.4 % (38.7-73.9); Platelet Count 235 T/CUMM (130-400); Red Blood Count 3.71 MC/CUMM (3.8-5.5); Red Cell Distribution Width 14.3 % (9.3-17.3); White Blood Count 10.9 T/CUMM (4-12)
[2019-06-20 20:37] LABS: Alanine Aminotransferase < 9 U/L (13-56); Albumin 2.1 G/DL (3.4-5.0); Alkaline Phosphatase 114 U/L (45-117); Aspartate Amino Transferase 14 U/L (0-37); Blood Urea Nitrogen 42 MG/DL (7-18); Calcium 7.4 MG/DL (8.5-10.1); Estimated Glom Filtration Rate 4 ML/MIN; Free T4 (Free Thyroxine) 1.29 NG/DL (0.76-1.46); Glucose 161 MG/DL (74-106); Osmolality,Calculated 281.2 MOS/KG (273-304); Total Protein 6.2 G/DL (6.4-8.3)
[2019-06-20] MEDS ORDERED: ONDANSETRON 4 MG/2 ML VIAL IV PRN (20:54)
[2019-06-20] MEDS: metroNIDAZOLE INJ 500 MG in PREMIX 1 EACH IV SCH (22:15)
[2019-06-20] MEDS: DICYCLOMINE 20 MG TABLET PO SCH (22:15)
[2019-06-20] MEDS ORDERED: NITROGLYCERIN SL 0.4 MG TABLET SL PRN (22:38)
[2019-06-20] MEDS ORDERED: CHOLESTYRAMINE/ASPARTAME 4 GM PACK PO PRN (22:57)
[2019-06-21] MEDS: FUROSEMIDE 40 MG TABLET PO SCH ×3 (00:02→21:21)
[2019-06-21] MEDS: metroNIDAZOLE INJ 500 MG in PREMIX 1 EACH IV SCH ×4 (03:17→21:21)
[2019-06-21 05:55] LABS: Calcium 7.7 MG/DL (8.5-10.1); Osmolality,Calculated 287.7 MOS/KG (273-304)
[2019-06-21 06:00] LABS: Apearance,Urine Slightly Hazy (Clear); Bacteria,Urine Occasional /HPF (Few); Bilirubin,Urine Negative (Negative); Blood, Urine Negative (Negative); Glucose,Urine (UA) 50 mg/dL (Negative); Ketones,Urine Negative (Negative); Nitrite,Urine Negative (Negative); Protein,Urine 100 MG/DL; RBC,Urine 1 /HPF (0-4); Squamous Epithelial Cell,Urine Few /HPF (0-10); Urine Color Yellow (Yellow); Urine Specific Gravity 1.009 (1.001-1.035); Urine Urobilinogen < 2.0 EU/DL (0.2-1.0); WBC,Urine 2 /HPF (0-6)
[2019-06-21] MEDS: LEVOTHYROXINE 88 MCG TABLET PO SCH (06:01)
[2019-06-21] MEDS: PANTOPRAZOLE 40 MG TABLET PO SCH (08:41)
[2019-06-21] MEDS: amLODIPine 10 MG TABLET PO SCH (08:41)
[2019-06-21] MEDS: POTASSIUM CHLORIDE 8 MEQ CAPSULE PO SCH (08:41)
[2019-06-21] MEDS: ISOSORBIDE MONONITRATE 60 MG TABLET PO SCH (08:41)
[2019-06-21] MEDS: carvediloL 25 MG TABLET PO SCH ×2 (08:41→17:13)
[2019-06-21] MEDS: DICYCLOMINE 20 MG TABLET PO SCH ×3 (08:42→21:20)
[2019-06-21] MEDS: SODIUM CHLORIDE 0.9% 1,000 ML IV SCH (14:20)
[2019-06-21] MEDS: HEPARIN 1,000 UNIT/1 ML VIAL INTRAPERIT SCH (18:00)
[2019-06-21] MEDS: cefTRIAXone 1,000 MG in SYRINGE 1 EACH IV SCH ×2 (21:18)
[2019-06-21] MEDS: ATORVASTATIN 20 MG TABLET PO SCH (21:21)
[2019-06-22] MEDS: HEPARIN 1,000 UNIT/1 ML VIAL INTRAPERIT SCH ×4 (00:05→18:08)
[2019-06-22] MEDS: metroNIDAZOLE INJ 500 MG in PREMIX 1 EACH IV SCH ×4 (04:33→21:22)
[2019-06-22 06:34] LABS: Alanine Aminotransferase < 6 U/L (13-56); Albumin 1.9 G/DL (3.4-5.0); Alkaline Phosphatase 102 U/L (45-117); Aspartate Amino Transferase 10 U/L (0-37); Bilirubin,Total < 0.39 MG/DL (0.2-1.0); Blood Urea Nitrogen 45 MG/DL (7-18); Calcium 7.8 MG/DL (8.5-10.1); Estimated Glom Filtration Rate 4 ML/MIN; Glucose 136 MG/DL (74-106); Osmolality,Calculated 288.7 MOS/KG (273-304); Total Protein 5.6 G/DL (6.4-8.3)
[2019-06-22] MEDS: LEVOTHYROXINE 88 MCG TABLET PO SCH (07:25)
[2019-06-22] MEDS: carvediloL 25 MG TABLET PO SCH ×2 (08:28→17:40)
[2019-06-22] MEDS: POTASSIUM CHLORIDE 8 MEQ CAPSULE PO SCH (08:30)
[2019-06-22] MEDS: ISOSORBIDE MONONITRATE 60 MG TABLET PO SCH (08:30)
[2019-06-22] MEDS: DICYCLOMINE 20 MG TABLET PO SCH ×3 (08:30→21:16)
[2019-06-22] MEDS: amLODIPine 10 MG TABLET PO SCH (08:30)
[2019-06-22] MEDS: FUROSEMIDE 40 MG TABLET PO SCH ×2 (08:30→21:16)
[2019-06-22] MEDS: PANTOPRAZOLE 40 MG TABLET PO SCH (08:31)
[2019-06-22] MEDS: SODIUM CHLORIDE 0.9% 1,000 ML IV SCH (13:05)
[2019-06-22] MEDS: cefTRIAXone 1,000 MG in SYRINGE 1 EACH IV SCH (21:15)
[2019-06-22] MEDS: ATORVASTATIN 20 MG TABLET PO SCH (21:16)
[2019-06-23] MEDS: HEPARIN 1,000 UNIT/1 ML VIAL INTRAPERIT SCH ×4 (00:45→18:50)
[2019-06-23] MEDS ORDERED: ALBUTEROL/IPRATROPIUM 3 ML NEB RESP TX PRN (01:46)
[2019-06-23] MEDS: metroNIDAZOLE INJ 500 MG in PREMIX 1 EACH IV SCH ×4 (03:56→21:11)
[2019-06-23] MEDS: LEVOTHYROXINE 88 MCG TABLET PO SCH (07:26)
[2019-06-23] MEDS: SODIUM CHLORIDE 0.9% 1,000 ML IV SCH (07:55)
[2019-06-23] MEDS: carvediloL 25 MG TABLET PO SCH ×2 (09:31→17:14)
[2019-06-23] MEDS: DICYCLOMINE 20 MG TABLET PO SCH ×3 (09:32→21:11)
[2019-06-23] MEDS: FUROSEMIDE 40 MG TABLET PO SCH ×2 (09:32→21:12)
[2019-06-23] MEDS: ISOSORBIDE MONONITRATE 60 MG TABLET PO SCH (09:32)
[2019-06-23] MEDS: POTASSIUM CHLORIDE 8 MEQ CAPSULE PO SCH (09:32)
[2019-06-23] MEDS: PANTOPRAZOLE 40 MG TABLET PO SCH (09:33)
[2019-06-23] MEDS: amLODIPine 10 MG TABLET PO SCH (09:33)
[2019-06-23] MEDS: ENOXAPARIN 30 MG/0.3 ML SYRINGE SUBCUT SCH (21:11)
[2019-06-23] MEDS: cefTRIAXone 1,000 MG in SYRINGE 1 EACH IV SCH (22:26)
[2019-06-23] MEDS: ATORVASTATIN 20 MG TABLET PO SCH (22:36)
[2019-06-24] MEDS: HEPARIN 1,000 UNIT/1 ML VIAL INTRAPERIT SCH ×5 (00:18→23:44)
[2019-06-24] MEDS: metroNIDAZOLE INJ 500 MG in PREMIX 1 EACH IV SCH ×4 (03:00→21:06)
[2019-06-24 05:55] LABS: Basophils # 0.1 10*3/uL (0.0-0.2); Basophils % 0.6 % (0.0-0.8); Eosinophils # 0.4 10*3/uL (0.0-0.87); Eosinophils % 4.4 % (0.00-10.9); Hematocrit 35.4 VOL% (35.7-47.0); Immature Granulocytes % 0.6 %; Immature Granulocytes Absolute 0.05 #; Lymphocytes # 0.9 10*3/uL (1.4-4.0); Lymphocytes % 10.3 % (21.3-54.2); Mean Corpuscular HGB Conc 31.1 GM/DL (32-36); Mean Corpuscular Volume 92.4 FL (87-102); Mean Platelet Volume 10.1 FL (9.6-12.0); Monocytes % 11.1 % (1.7-12.7); Platelet Count 222 T/CUMM (130-400); Red Blood Count 3.83 MC/CUMM (3.8-5.5); Red Cell Distribution Width 14.4 % (9.3-17.3); White Blood Count 8.9 T/CUMM (4-12)
[2019-06-24] MEDS: LEVOTHYROXINE 88 MCG TABLET PO SCH (06:04)
[2019-06-24 06:20] LABS: Alanine Aminotransferase < 6 U/L (13-56); Alkaline Phosphatase 98 U/L (45-117); Aspartate Amino Transferase 9 U/L (0-37); Bilirubin,Total < 0.39 MG/DL (0.2-1.0); Blood Urea Nitrogen 34 MG/DL (7-18); Estimated Glom Filtration Rate 5 ML/MIN; Glucose 150 MG/DL (74-106); Total Protein 5.6 G/DL (6.4-8.3)
[2019-06-24] MEDS: carvediloL 25 MG TABLET PO SCH ×2 (08:27→17:11)
[2019-06-24] MEDS: ISOSORBIDE MONONITRATE 60 MG TABLET PO SCH (08:28)
[2019-06-24] MEDS: DICYCLOMINE 20 MG TABLET PO SCH ×3 (08:28→21:07)
[2019-06-24] MEDS: FUROSEMIDE 40 MG TABLET PO SCH ×2 (08:29→21:06)
[2019-06-24] MEDS: amLODIPine 10 MG TABLET PO SCH (08:29)
[2019-06-24] MEDS: POTASSIUM CHLORIDE 8 MEQ CAPSULE PO SCH (08:29)
[2019-06-24] MEDS: PANTOPRAZOLE 40 MG TABLET PO SCH (08:29)
[2019-06-24] MEDS: ACETAMINOPHEN 325 MG TABLET PO PRN (15:13)
[2019-06-24] MEDS: ENOXAPARIN 30 MG/0.3 ML SYRINGE SUBCUT SCH (21:06)
[2019-06-24] MEDS: ATORVASTATIN 20 MG TABLET PO SCH (21:46)
[2019-06-24] MEDS: cefTRIAXone 1,000 MG in SYRINGE 1 EACH IV SCH (22:58)
[2019-06-25] MEDS: metroNIDAZOLE INJ 500 MG in PREMIX 1 EACH IV SCH ×3 (03:23→20:29)
[2019-06-25] MEDS: HEPARIN 1,000 UNIT/1 ML VIAL INTRAPERIT SCH ×3 (05:34→18:08)
[2019-06-25] MEDS: LEVOTHYROXINE 88 MCG TABLET PO SCH (05:38)
[2019-06-25] MEDS ORDERED: VANCOMYCIN INJ 1,000 MG in SODIUM CHLORIDE 0.9% 250 ML IV ONE ×2 (08:52→12:30)
[2019-06-25] MEDS: amLODIPine 10 MG TABLET PO SCH (09:22)
[2019-06-25] MEDS: carvediloL 25 MG TABLET PO SCH ×2 (09:22→18:05)
[2019-06-25] MEDS: POTASSIUM CHLORIDE 8 MEQ CAPSULE PO SCH (09:23)
[2019-06-25] MEDS: DICYCLOMINE 20 MG TABLET PO SCH ×3 (09:23→20:41)
[2019-06-25] MEDS: PANTOPRAZOLE 40 MG TABLET PO SCH (09:23)
[2019-06-25] MEDS: ISOSORBIDE MONONITRATE 60 MG TABLET PO SCH (09:23)
[2019-06-25] MEDS: FUROSEMIDE 40 MG TABLET PO SCH ×2 (09:23→20:41)
[2019-06-25 13:12] LABS: Folate 4.5 NG/ML (5.4-24.0); Vitamin B12 217 PG/ML (211-911)
[2019-06-25] MEDS: ACETAMINOPHEN 325 MG TABLET PO PRN (15:53)
[2019-06-25] MEDS: ATORVASTATIN 20 MG TABLET PO SCH (20:41)
[2019-06-26] MEDS: HEPARIN 1,000 UNIT/1 ML VIAL INTRAPERIT SCH ×4 (00:21→19:13)
[2019-06-26] MEDS: metroNIDAZOLE INJ 500 MG in PREMIX 1 EACH IV SCH ×2 (02:11→08:55)
[2019-06-26] MEDS: LEVOTHYROXINE 88 MCG TABLET PO SCH (05:30)
[2019-06-26] MEDS: ACETAMINOPHEN 325 MG TABLET PO PRN ×2 (06:31→15:43)
[2019-06-26 06:37] LABS: Basophils % 0.5 % (0.0-0.8); Eosinophils # 0.6 10*3/uL (0.0-0.87); Eosinophils % 6.7 % (0.00-10.9); Hematocrit 36.1 VOL% (35.7-47.0); Hemoglobin 11.3 GM/DL (12.0-16.0); Immature Granulocytes % 0.4 %; Immature Granulocytes Absolute 0.03 #; Lymphocytes # 0.7 10*3/uL (1.4-4.0); Lymphocytes % 8.5 % (21.3-54.2); Mean Corpuscular HGB Conc 31.3 GM/DL (32-36); Mean Corpuscular Volume 92.1 FL (87-102); Mean Platelet Volume 9.8 FL (9.6-12.0); Monocytes % 9.1 % (1.7-12.7); Neutrophils % 74.8 % (38.7-73.9); Platelet Count 218 T/CUMM (130-400); Red Blood Count 3.92 MC/CUMM (3.8-5.5); Red Cell Distribution Width 14.5 % (9.3-17.3); White Blood Count 8.3 T/CUMM (4-12)
[2019-06-26 06:53] LABS: Calcium 8.2 MG/DL (8.5-10.1); Osmolality,Calculated 276.1 MOS/KG (273-304)
[2019-06-26] MEDS: ASPIRIN EC 81 MG TABLET PO SCH (09:16)
[2019-06-26] MEDS: POTASSIUM CHLORIDE 8 MEQ CAPSULE PO SCH (09:16)
[2019-06-26] MEDS: amLODIPine 10 MG TABLET PO SCH (09:16)
[2019-06-26] MEDS: DICYCLOMINE 20 MG TABLET PO SCH ×3 (09:16→20:52)
[2019-06-26] MEDS: PANTOPRAZOLE 40 MG TABLET PO SCH (09:16)
[2019-06-26] MEDS: carvediloL 25 MG TABLET PO SCH ×2 (09:16→17:05)
[2019-06-26] MEDS: ISOSORBIDE MONONITRATE 60 MG TABLET PO SCH (09:16)
[2019-06-26] MEDS: FUROSEMIDE 40 MG TABLET PO SCH ×2 (09:17→20:52)
[2019-06-26] MEDS: CLOPIDOGREL 75 MG TABLET PO SCH (09:17)
[2019-06-26] MEDS ORDERED: VANCOMYCIN INJ 1,000 MG in SODIUM CHLORIDE 0.9% 250 ML IV ONE (10:00)
[2019-06-26] MEDS: ATORVASTATIN 20 MG TABLET PO SCH (20:52)
[2019-06-27] MEDS: HEPARIN 1,000 UNIT/1 ML VIAL INTRAPERIT SCH ×3 (00:39→12:30)
[2019-06-27] MEDS: LEVOTHYROXINE 88 MCG TABLET PO SCH (05:34)
[2019-06-27] MEDS: amLODIPine 10 MG TABLET PO SCH (08:20)
[2019-06-27] MEDS: ISOSORBIDE MONONITRATE 60 MG TABLET PO SCH (08:20)
[2019-06-27] MEDS: ACETAMINOPHEN 325 MG TABLET PO PRN (08:20)
[2019-06-27] MEDS: CLOPIDOGREL 75 MG TABLET PO SCH (08:20)
[2019-06-27] MEDS: FUROSEMIDE 40 MG TABLET PO SCH (08:21)
[2019-06-27] MEDS: DICYCLOMINE 20 MG TABLET PO SCH (08:21)
[2019-06-27] MEDS: PANTOPRAZOLE 40 MG TABLET PO SCH (08:21)
[2019-06-27] MEDS: POTASSIUM CHLORIDE 8 MEQ CAPSULE PO SCH (08:21)
[2019-06-27] MEDS: carvediloL 25 MG TABLET PO SCH (08:21)
[2019-06-27] MEDS: ASPIRIN EC 81 MG TABLET PO SCH (08:21)
[2019-06-27] MEDS ORDERED: ERGOCALCIFEROL 50,000 UNIT CAPSULE PO SCH (09:00)
[2019-06-27] MEDS ORDERED: FOLIC ACID 1 MG TABLET PO SCH (09:00)
[2019-06-27] MEDS ORDERED: CYANOCOBALAMIN 500 MCG TABLET PO SCH (09:00)
[2019-06-27] MEDS ORDERED: VANCOMYCIN INJ 1,000 MG in SODIUM CHLORIDE 0.9% 250 ML IV PRN (10:00)
[2019-06-27 12:38] VITALS: BP 147/54
== END 2019-06-27 13:10 | DRG 64 ==
LOC: EDUNIT# → N.ED 19:43 → N.EDINP 20:51 → N.3E 22:11
PROVIDERS: ADMIT Internal Medicine; ATTEND Internal Medicine

== ENCOUNTER 2019-07-20 15:25 | Inpatient (IN) ==
[2019-07-20 18:17] LABS: Basophils % 0.3 % (0.0-0.8); Eosinophils # 0.2 10*3/uL (0.0-0.87); Eosinophils % 1.4 % (0.00-10.9); Hematocrit 40.2 VOL% (35.7-47.0); Hemoglobin 12.7 GM/DL (12.0-16.0); Immature Granulocytes % 0.6 %; Immature Granulocytes Absolute 0.08 #; Lymphocytes # 0.5 10*3/uL (1.4-4.0); Lymphocytes % 4.1 % (21.3-54.2); Mean Corpuscular HGB Conc 31.6 GM/DL (32-36); Mean Corpuscular Volume 88.9 FL (87-102); Mean Platelet Volume 11.6 FL (9.6-12.0); Monocytes % 5.8 % (1.7-12.7); Neutrophils % 87.8 % (38.7-73.9); Platelet Count 257 T/CUMM (130-400); Red Blood Count 4.52 MC/CUMM (3.8-5.5); White Blood Count 12.5 T/CUMM (4-12)
[2019-07-20 18:31] LABS: Alanine Aminotransferase < 9 U/L (13-56); Albumin 1.9 G/DL (3.4-5.0); Alkaline Phosphatase 97 U/L (45-117); Aspartate Amino Transferase 11 U/L (0-37); Bilirubin,Total < 0.39 MG/DL (0.2-1.0); Blood Urea Nitrogen 36 MG/DL (7-18); Calcium 8.1 MG/DL (8.5-10.1); Estimated Glom Filtration Rate 6 ML/MIN; Glucose 167 MG/DL (74-106); Osmolality,Calculated 277.4 MOS/KG (273-304)
[2019-07-20 18:48] LABS: Burr Cells Few; Eosinophils 2 % (0-10); Lymphocytes 5 % (20-55); Segmented Neutrophils 89 % (50-85); Total Cells Counted 100
[2019-07-20 18:49] LABS: Platelet Estimate Normal; Poikilocytosis Few
[2019-07-20 22:11] LABS: Apearance,Urine CLEAR (Clear); Bilirubin,Urine Negative (Negative); Blood, Urine Negative (Negative); Glucose,Urine (UA) 50 mg/dL (Negative); Ketones,Urine Negative (Negative); Nitrite,Urine Negative (Negative); Protein,Urine 100 MG/DL; RBC,Urine 6 /HPF (0-4); Squamous Epithelial Cell,Urine Occasional /HPF (0-10); Urine Color Yellow (Yellow); Urine Specific Gravity 1.011 (1.001-1.035); Urine Urobilinogen < 2.0 EU/DL (0.2-1.0); WBC,Urine 1 /HPF (0-6)
[2019-07-20] MEDS ORDERED: ONDANSETRON 4 MG/2 ML VIAL IV PRN (22:28)
[2019-07-20] MEDS ORDERED: SODIUM CHLORIDE 0.9% 1,000 ML IV SCH (22:30)
[2019-07-21] MEDS ORDERED: ALBUTEROL/IPRATROPIUM 3 ML NEB RESP TX PRN (00:24)
[2019-07-21] MEDS ORDERED: NITROGLYCERIN SL 0.4 MG TABLET SL PRN (00:24)
[2019-07-21] MEDS: ISOSORBIDE MONONITRATE 60 MG TABLET PO SCH ×2 (01:07→22:02)
[2019-07-21] MEDS: ACETAMINOPHEN 325 MG TABLET PO PRN ×2 (01:07→22:12)
[2019-07-21] MEDS: LEVOTHYROXINE 88 MCG TABLET PO SCH (05:34)
[2019-07-21 06:17] LABS: Basophils # 0.1 10*3/uL (0.0-0.2); Basophils % 0.5 % (0.0-0.8); Eosinophils # 0.2 10*3/uL (0.0-0.87); Eosinophils % 2.1 % (0.00-10.9); Hematocrit 33.6 VOL% (35.7-47.0); Hemoglobin 10.8 GM/DL (12.0-16.0); Immature Granulocytes % 0.5 %; Immature Granulocytes Absolute 0.06 #; Lymphocytes # 0.7 10*3/uL (1.4-4.0); Lymphocytes % 6.2 % (21.3-54.2); Mean Corpuscular HGB Conc 32.1 GM/DL (32-36); Mean Corpuscular Volume 89.1 FL (87-102); Mean Platelet Volume 11.5 FL (9.6-12.0); Monocytes % 8.4 % (1.7-12.7); Neutrophils % 82.3 % (38.7-73.9); Platelet Count 222 T/CUMM (130-400); Red Blood Count 3.77 MC/CUMM (3.8-5.5); Red Cell Distribution Width 14.9 % (9.3-17.3); White Blood Count 11.1 T/CUMM (4-12)
[2019-07-21 07:00] LABS: Alanine Aminotransferase < 6 U/L (13-56); Albumin 1.6 G/DL (3.4-5.0); Alkaline Phosphatase 84 U/L (45-117); Aspartate Amino Transferase 10 U/L (0-37); Bilirubin,Total < 0.39 MG/DL (0.2-1.0); Blood Urea Nitrogen 39 MG/DL (7-18); Calcium 7.5 MG/DL (8.5-10.1); Estimated Glom Filtration Rate 5 ML/MIN; Glucose 78 MG/DL (74-106); Osmolality,Calculated 282.7 MOS/KG (273-304); Total Protein 5.4 G/DL (6.4-8.3)
[2019-07-21] MEDS: carvediloL 12.5 MG TABLET PO SCH ×2 (09:23→16:25)
[2019-07-21] MEDS: amLODIPine 10 MG TABLET PO SCH (09:23)
[2019-07-21] MEDS: ASPIRIN EC 81 MG TABLET PO SCH (09:23)
[2019-07-21] MEDS: CLOPIDOGREL 75 MG TABLET PO SCH (09:23)
[2019-07-21] MEDS: PANTOPRAZOLE 40 MG TABLET PO SCH (09:24)
[2019-07-21] MEDS ORDERED: POTASSIUM CHLORIDE 20 MEQ TABLET PO ONE (14:37)
[2019-07-21] MEDS ORDERED: MAGNESIUM HYDROXIDE SUSP 30 ML UDCUP PO PRN (14:40)
[2019-07-21] MEDS: cefTRIAXone 500 MG in SYRINGE 1 EACH IV SCH (16:25)
[2019-07-21] MEDS ORDERED: VANCOMYCIN 1,000 MG VIAL INTRAPERIT ONE (23:30)
[2019-07-22] MEDS: LEVOTHYROXINE 88 MCG TABLET PO SCH (05:57)
[2019-07-22 06:35] LABS: Basophils # 0.1 10*3/uL (0.0-0.2); Basophils % 0.5 % (0.0-0.8); Eosinophils # 0.4 10*3/uL (0.0-0.87); Eosinophils % 4.2 % (0.00-10.9); Hematocrit 32.9 VOL% (35.7-47.0); Hemoglobin 10.4 GM/DL (12.0-16.0); Immature Granulocytes % 0.4 %; Immature Granulocytes Absolute 0.04 #; Lymphocytes # 0.7 10*3/uL (1.4-4.0); Lymphocytes % 6.8 % (21.3-54.2); Mean Corpuscular HGB Conc 31.6 GM/DL (32-36); Mean Corpuscular Volume 89.2 FL (87-102); Mean Platelet Volume 10.9 FL (9.6-12.0); Monocytes % 8.1 % (1.7-12.7); Platelet Count 257 T/CUMM (130-400); Red Blood Count 3.69 MC/CUMM (3.8-5.5); Red Cell Distribution Width 14.9 % (9.3-17.3); White Blood Count 10.6 T/CUMM (4-12)
[2019-07-22 06:54] LABS: Calcium 7.9 MG/DL (8.5-10.1)
[2019-07-22] MEDS: ASPIRIN EC 81 MG TABLET PO SCH (09:26)
[2019-07-22] MEDS: carvediloL 12.5 MG TABLET PO SCH ×2 (09:26→17:06)
[2019-07-22] MEDS: CLOPIDOGREL 75 MG TABLET PO SCH (09:27)
[2019-07-22] MEDS: PANTOPRAZOLE 40 MG TABLET PO SCH (09:27)
[2019-07-22] MEDS: amLODIPine 10 MG TABLET PO SCH (09:27)
[2019-07-22] MEDS ORDERED: MAGNESIUM SULF RIDER 2 GM in PREMIX 1 EACH IV ONE (11:13)
[2019-07-22] MEDS: cefTRIAXone 500 MG in SYRINGE 1 EACH IV SCH (14:59)
[2019-07-22] MEDS: ISOSORBIDE MONONITRATE 60 MG TABLET PO SCH (21:46)
[2019-07-23] MEDS: ACETAMINOPHEN 325 MG TABLET PO PRN ×2 (04:17→21:16)
[2019-07-23] MEDS: LEVOTHYROXINE 88 MCG TABLET PO SCH (06:02)
[2019-07-23 06:19] LABS: Basophils % 0.3 % (0.0-0.8); Eosinophils # 0.2 10*3/uL (0.0-0.87); Eosinophils % 1.6 % (0.00-10.9); Hematocrit 33.1 VOL% (35.7-47.0); Hemoglobin 10.7 GM/DL (12.0-16.0); Immature Granulocytes % 0.6 %; Immature Granulocytes Absolute 0.07 #; Lymphocytes # 0.7 10*3/uL (1.4-4.0); Lymphocytes % 6.1 % (21.3-54.2); Mean Corpuscular HGB Conc 32.3 GM/DL (32-36); Mean Corpuscular Volume 86.9 FL (87-102); Mean Platelet Volume 10.6 FL (9.6-12.0); Monocytes % 7.7 % (1.7-12.7); Neutrophils % 83.7 % (38.7-73.9); Platelet Count 247 T/CUMM (130-400); Red Blood Count 3.81 MC/CUMM (3.8-5.5); Red Cell Distribution Width 14.9 % (9.3-17.3); White Blood Count 11.5 T/CUMM (4-12)
[2019-07-23 06:34] LABS: Alanine Aminotransferase < 6 U/L (13-56); Albumin 1.4 G/DL (3.4-5.0); Alkaline Phosphatase 81 U/L (45-117); Aspartate Amino Transferase 10 U/L (0-37); Bilirubin,Total < 0.39 MG/DL (0.2-1.0); Blood Urea Nitrogen 37 MG/DL (7-18); Estimated Glom Filtration Rate 6 ML/MIN; Glucose 134 MG/DL (74-106); Osmolality,Calculated 280.1 MOS/KG (273-304); Total Protein 5.3 G/DL (6.4-8.3)
[2019-07-23] MEDS: carvediloL 12.5 MG TABLET PO SCH ×2 (08:18→17:08)
[2019-07-23] MEDS: ASPIRIN EC 81 MG TABLET PO SCH (08:18)
[2019-07-23] MEDS: amLODIPine 10 MG TABLET PO SCH (08:18)
[2019-07-23] MEDS: CLOPIDOGREL 75 MG TABLET PO SCH (08:18)
[2019-07-23] MEDS: PANTOPRAZOLE 40 MG TABLET PO SCH (08:19)
[2019-07-23] MEDS: cefTRIAXone 500 MG in SYRINGE 1 EACH IV SCH (18:52)
[2019-07-23] MEDS: ISOSORBIDE MONONITRATE 60 MG TABLET PO SCH (21:15)
[2019-07-24] MEDS: LEVOTHYROXINE 88 MCG TABLET PO SCH (05:50)
[2019-07-24] MEDS: ASPIRIN EC 81 MG TABLET PO SCH (08:26)
[2019-07-24] MEDS: carvediloL 12.5 MG TABLET PO SCH ×2 (08:26→17:18)
[2019-07-24] MEDS: amLODIPine 10 MG TABLET PO SCH (08:26)
[2019-07-24] MEDS: CLOPIDOGREL 75 MG TABLET PO SCH (08:26)
[2019-07-24] MEDS: PANTOPRAZOLE 40 MG TABLET PO SCH (08:26)
[2019-07-24] MEDS: cefTRIAXone 500 MG in SYRINGE 1 EACH IV SCH (14:05)
[2019-07-24] MEDS: ISOSORBIDE MONONITRATE 60 MG TABLET PO SCH (21:02)
[2019-07-25] MEDS: ACETAMINOPHEN 325 MG TABLET PO PRN (03:13)
[2019-07-25] MEDS: LEVOTHYROXINE 88 MCG TABLET PO SCH (07:02)
[2019-07-25] MEDS: CLOPIDOGREL 75 MG TABLET PO SCH (08:06)
[2019-07-25] MEDS: ASPIRIN EC 81 MG TABLET PO SCH (08:06)
[2019-07-25] MEDS: amLODIPine 10 MG TABLET PO SCH (08:06)
[2019-07-25] MEDS: carvediloL 12.5 MG TABLET PO SCH ×2 (08:06→16:39)
[2019-07-25] MEDS: PANTOPRAZOLE 40 MG TABLET PO SCH (08:06)
[2019-07-25] MEDS: cefTRIAXone 500 MG in SYRINGE 1 EACH IV SCH (16:39)
[2019-07-25] MEDS: ISOSORBIDE MONONITRATE 60 MG TABLET PO SCH (21:04)
[2019-07-26] MEDS: LEVOTHYROXINE 88 MCG TABLET PO SCH (05:35)
[2019-07-26] MEDS: CLOPIDOGREL 75 MG TABLET PO SCH (10:25)
[2019-07-26] MEDS: ASPIRIN EC 81 MG TABLET PO SCH (10:25)
[2019-07-26] MEDS: PANTOPRAZOLE 40 MG TABLET PO SCH (10:25)
[2019-07-26] MEDS: amLODIPine 10 MG TABLET PO SCH (10:25)
[2019-07-26] MEDS: carvediloL 12.5 MG TABLET PO SCH ×2 (10:25→18:27)
[2019-07-26] MEDS: cefTRIAXone 500 MG in SYRINGE 1 EACH IV SCH (16:55)
[2019-07-26] MEDS: ISOSORBIDE MONONITRATE 60 MG TABLET PO SCH (22:51)
[2019-07-27 05:49] LABS: Basophils % 0.2 % (0.0-0.8); Eosinophils # 0.2 10*3/uL (0.0-0.87); Eosinophils % 1.3 % (0.00-10.9); Hematocrit 35.5 VOL% (35.7-47.0); Hemoglobin 11.4 GM/DL (12.0-16.0); Immature Granulocytes % 0.6 %; Immature Granulocytes Absolute 0.08 #; Lymphocytes # 0.6 10*3/uL (1.4-4.0); Lymphocytes % 4.6 % (21.3-54.2); Mean Corpuscular HGB Conc 32.1 GM/DL (32-36); Mean Corpuscular Volume 88.1 FL (87-102); Monocytes % 5.5 % (1.7-12.7); Neutrophils % 87.8 % (38.7-73.9); Platelet Count 328 T/CUMM (130-400); Red Blood Count 4.03 MC/CUMM (3.8-5.5); Red Cell Distribution Width 14.5 % (9.3-17.3)
[2019-07-27] MEDS: ACETAMINOPHEN 325 MG TABLET PO PRN (06:07)
[2019-07-27 06:26] LABS: Calcium 8.1 MG/DL (8.5-10.1); Osmolality,Calculated 271.5 MOS/KG (273-304)
[2019-07-27 06:41] LABS: Band Neutrophils 1 % (0-10); Eosinophils 1 % (0-10); Lymphocytes 5 % (20-55); Segmented Neutrophils 88 % (50-85); Total Cells Counted 100
[2019-07-27 06:42] LABS: Anisocytosis 1+; Ovalocytes 1+; Platelet Estimate Normal
[2019-07-27] MEDS: LEVOTHYROXINE 88 MCG TABLET PO SCH (06:45)
[2019-07-27] MEDS: CLOPIDOGREL 75 MG TABLET PO SCH (10:49)
[2019-07-27] MEDS: carvediloL 12.5 MG TABLET PO SCH ×2 (10:50→18:57)
[2019-07-27] MEDS: PANTOPRAZOLE 40 MG TABLET PO SCH (10:50)
[2019-07-27] MEDS: ASPIRIN EC 81 MG TABLET PO SCH (10:50)
[2019-07-27] MEDS: amLODIPine 10 MG TABLET PO SCH (10:50)
[2019-07-27] MEDS ORDERED: CLINDAMYCIN INJ 900 MG in PREMIX 1 EACH IV ONE (11:05)
[2019-07-27] MEDS ORDERED: POTASSIUM CHLORIDE 20 MEQ/15 ML UDCUP PO ONE (11:10)
[2019-07-27] MEDS ORDERED: LIDOCAINE 1% 20 ML VIAL ONE (11:52)
[2019-07-27] MEDS ORDERED: HEPARIN 5,000 UNIT/1 ML VIAL ONE (11:52)
[2019-07-27] MEDS ORDERED: BUPIVACAINE 0.25% /EPI 10 ML VIAL ONE (11:52)
[2019-07-27] MEDS ORDERED: SODIUM CHLORIDE 0.9% 250 ML IV SCH ×2 (12:00)
[2019-07-27] MEDS ORDERED: CLINDAMYCIN INJ 50 ML IV ONE (12:12)
[2019-07-27] MEDS ORDERED: propofoL 200 MG/20 ML VIAL IV ONE (13:00)
[2019-07-27] MEDS ORDERED: ONDANSETRON 4 MG/2 ML VIAL ONE (13:00)
[2019-07-27] MEDS ORDERED: PHENYLEPHRINE 1 MG/10 ML SYRINGE IV ONE (13:00)
[2019-07-27] MEDS ORDERED: LIDOCAINE 2% 5 ML VIAL ONE (13:00)
[2019-07-27] MEDS ORDERED: SEVOFLURANE 1 UNIT/15 MINUTE INH ONE (13:00)
[2019-07-27] MEDS ORDERED: GLYCOPYRROLATE 0.4 MG/2 ML VIAL ONE (13:00)
[2019-07-27] MEDS: traMADol 50 MG TABLET PO PRN ×2 (14:30→21:44)
[2019-07-27] MEDS: cefTRIAXone 500 MG in SYRINGE 1 EACH IV SCH (14:59)
[2019-07-27] MEDS: ISOSORBIDE MONONITRATE 60 MG TABLET PO SCH (21:46)
[2019-07-28] MEDS ORDERED: HEPARIN 10,000 UNIT/10 ML VIAL IV SCH (11:00)
[2019-07-28] MEDS: cefTRIAXone 500 MG in SYRINGE 1 EACH IV SCH (15:09)
[2019-07-28] MEDS: amLODIPine 10 MG TABLET PO SCH (15:10)
[2019-07-28] MEDS: ASPIRIN EC 81 MG TABLET PO SCH (15:10)
[2019-07-28] MEDS: PANTOPRAZOLE 40 MG TABLET PO SCH (15:11)
[2019-07-28] MEDS: carvediloL 12.5 MG TABLET PO SCH ×2 (15:11→18:35)
[2019-07-28] MEDS: CLOPIDOGREL 75 MG TABLET PO SCH (15:11)
[2019-07-28] MEDS: LEVOTHYROXINE 88 MCG TABLET PO SCH (18:35)
[2019-07-28] MEDS: ISOSORBIDE MONONITRATE 60 MG TABLET PO SCH (22:16)
[2019-07-29] MEDS: LEVOTHYROXINE 88 MCG TABLET PO SCH (07:21)
[2019-07-29] MEDS: ASPIRIN EC 81 MG TABLET PO SCH (08:49)
[2019-07-29] MEDS: amLODIPine 10 MG TABLET PO SCH (08:49)
[2019-07-29] MEDS: PANTOPRAZOLE 40 MG TABLET PO SCH (08:49)
[2019-07-29] MEDS: carvediloL 12.5 MG TABLET PO SCH ×2 (08:49→17:21)
[2019-07-29] MEDS: CLOPIDOGREL 75 MG TABLET PO SCH (08:49)
[2019-07-29] MEDS: ISOSORBIDE MONONITRATE 60 MG TABLET PO SCH (20:45)
[2019-07-30] MEDS: LEVOTHYROXINE 88 MCG TABLET PO SCH (06:12)
[2019-07-30] MEDS ORDERED: FLUCONAZOLE 100 MG TABLET PO ONE (08:00)
[2019-07-30] MEDS: PANTOPRAZOLE 40 MG TABLET PO SCH (09:05)
[2019-07-30] MEDS: ASPIRIN EC 81 MG TABLET PO SCH (09:05)
[2019-07-30] MEDS: carvediloL 12.5 MG TABLET PO SCH ×2 (09:05→17:37)
[2019-07-30] MEDS: CLOPIDOGREL 75 MG TABLET PO SCH (09:05)
[2019-07-30] MEDS: amLODIPine 10 MG TABLET PO SCH (09:05)
[2019-07-30] MEDS: ISOSORBIDE MONONITRATE 60 MG TABLET PO SCH (23:25)
[2019-07-31 05:11] LABS: Basophils % 0.2 % (0.0-0.8); Eosinophils # 0.2 10*3/uL (0.0-0.87); Eosinophils % 1.7 % (0.00-10.9); Hematocrit 30.1 VOL% (35.7-47.0); Hemoglobin 9.6 GM/DL (12.0-16.0); Immature Granulocytes % 0.6 %; Immature Granulocytes Absolute 0.08 #; Lymphocytes # 0.7 10*3/uL (1.4-4.0); Lymphocytes % 5.1 % (21.3-54.2); Mean Corpuscular HGB Conc 31.9 GM/DL (32-36); Mean Corpuscular Volume 89.3 FL (87-102); Mean Platelet Volume 9.7 FL (9.6-12.0); Monocytes % 6.6 % (1.7-12.7); Neutrophils % 85.8 % (38.7-73.9); Platelet Count 302 T/CUMM (130-400); Red Blood Count 3.37 MC/CUMM (3.8-5.5); Red Cell Distribution Width 15.1 % (9.3-17.3); White Blood Count 13.4 T/CUMM (4-12)
[2019-07-31 05:29] LABS: Calcium 7.7 MG/DL (8.5-10.1)
[2019-07-31] MEDS: LEVOTHYROXINE 88 MCG TABLET PO SCH (05:38)
[2019-07-31] MEDS: ASPIRIN EC 81 MG TABLET PO SCH (10:00)
[2019-07-31] MEDS: amLODIPine 10 MG TABLET PO SCH (10:00)
[2019-07-31] MEDS: carvediloL 12.5 MG TABLET PO SCH ×2 (10:00→16:18)
[2019-07-31] MEDS: CLOPIDOGREL 75 MG TABLET PO SCH (10:00)
[2019-07-31] MEDS: PANTOPRAZOLE 40 MG TABLET PO SCH (10:00)
[2019-07-31] MEDS ORDERED: TUBERCULIN SKIN TEST 0.1 ML SYRINGE INTRADERM ONE (13:56)
[2019-07-31] MEDS ORDERED: FLUCONAZOLE 100 MG TABLET PO SCH (17:00)
[2019-07-31] MEDS: ISOSORBIDE MONONITRATE 60 MG TABLET PO SCH (22:00)
[2019-08-01] MEDS: LEVOTHYROXINE 88 MCG TABLET PO SCH (06:01)
[2019-08-01] MEDS: amLODIPine 10 MG TABLET PO SCH (10:18)
[2019-08-01] MEDS: CLOPIDOGREL 75 MG TABLET PO SCH (10:18)
[2019-08-01] MEDS: PANTOPRAZOLE 40 MG TABLET PO SCH (10:18)
[2019-08-01] MEDS: carvediloL 12.5 MG TABLET PO SCH (10:18)
[2019-08-01] MEDS: ASPIRIN EC 81 MG TABLET PO SCH (10:18)
[2019-08-01 12:00] VITALS: BP 127/56
== END 2019-08-01 17:12 | DRG 907 ==
LOC: N.ED 15:25 → N.EDINP 15:25 → N.5E 22:52
PROVIDERS: ADMIT Internal Medicine; ATTEND Internal Medicine

== ENCOUNTER 2020-01-11 19:11 | Observation (INO) ==
[2020-01-11] MEDS ORDERED: FUROSEMIDE 40 MG/4 ML VIAL IV STA (19:59)
[2020-01-11 21:34] LABS: Basophils # 0.1 10*3/uL (0.0-0.2); Basophils % 0.9 % (0.0-0.8); Eosinophils # 0.6 10*3/uL (0.0-0.87); Eosinophils % 7.9 % (0.00-10.9); Hematocrit 34.8 VOL% (35.7-47.0); Hemoglobin 11.3 GM/DL (12.0-16.0); Immature Granulocytes % 0.4 %; Immature Granulocytes Absolute 0.03 #; Lymphocytes # 1.2 10*3/uL (1.4-4.0); Lymphocytes % 16.2 % (21.3-54.2); Mean Corpuscular HGB Conc 32.5 GM/DL (32-36); Mean Corpuscular Volume 90.2 FL (87-102); Mean Platelet Volume 10.9 FL (9.6-12.0); Monocytes % 9.9 % (1.7-12.7); Neutrophils % 64.7 % (38.7-73.9); Platelet Count 241 T/CUMM (130-400); Red Blood Count 3.86 MC/CUMM (3.8-5.5); Red Cell Distribution Width 15.5 % (9.3-17.3); White Blood Count 7.5 T/CUMM (4-12)
[2020-01-11 21:44] LABS: Apearance,Urine Slightly Hazy (Clear); Bacteria,Urine Moderate /HPF (Few); Bilirubin,Urine Negative (Negative); Blood, Urine Negative (Negative); Glucose,Urine (UA) 150 mg/dL (Negative); Ketones,Urine Negative (Negative); Nitrite,Urine Negative (Negative); Protein,Urine 100 MG/DL; RBC,Urine 2 /HPF (0-4); Squamous Epithelial Cell,Urine Few /HPF (0-10); Urine Color Yellow (Yellow); Urine Specific Gravity 1.006 (1.001-1.035); Urine Urobilinogen < 2.0 EU/DL (0.2-1.0); WBC,Urine 1 /HPF (0-6)
[2020-01-11 22:02] LABS: Albumin 3.4 G/DL (3.4-5.0); Bilirubin,Total 0.9 MG/DL (0.2-1.0); Calcium 8.5 MG/DL (8.5-10.1); Total Protein 7.6 G/DL (6.4-8.3)
[2020-01-11] MEDS ORDERED: ONDANSETRON 4 MG/2 ML VIAL IV PRN (23:02)
[2020-01-11] MEDS ORDERED: ACETAMINOPHEN 325 MG TABLET PO PRN (23:02)
[2020-01-11] MEDS ORDERED: CLOPIDOGREL 75 MG TABLET PO SCH (23:30)
[2020-01-12] MEDS ORDERED: hydrALAZINE 20 MG/1 ML VIAL IV STA (00:10)
[2020-01-12] MEDS ORDERED: NITROGLYCERIN 2% OINT 1 INCH/GM PACK TOP STA (00:56)
[2020-01-12] MEDS: CLOPIDOGREL 75 MG TABLET PO SCH ×2 (02:43→08:12)
[2020-01-12] MEDS: hydrALAZINE 20 MG/1 ML VIAL IV PRN ×2 (02:43→12:51)
[2020-01-12 05:51] LABS: Basophils # 0.1 10*3/uL (0.0-0.2); Eosinophils # 0.7 10*3/uL (0.0-0.87); Eosinophils % 6.9 % (0.00-10.9); Hematocrit 34.3 VOL% (35.7-47.0); Hemoglobin 10.7 GM/DL (12.0-16.0); Immature Granulocytes % 0.5 %; Immature Granulocytes Absolute 0.05 #; Lymphocytes # 1.3 10*3/uL (1.4-4.0); Lymphocytes % 13.6 % (21.3-54.2); Mean Corpuscular HGB Conc 31.2 GM/DL (32-36); Mean Corpuscular Volume 91.2 FL (87-102); Mean Platelet Volume 11.3 FL (9.6-12.0); Monocytes % 9.1 % (1.7-12.7); Neutrophils % 68.9 % (38.7-73.9); Platelet Count 234 T/CUMM (130-400); Red Blood Count 3.76 MC/CUMM (3.8-5.5); Red Cell Distribution Width 15.6 % (9.3-17.3); White Blood Count 9.5 T/CUMM (4-12)
[2020-01-12 06:22] LABS: Albumin 3.1 G/DL (3.4-5.0); Bilirubin,Total 1.1 MG/DL (0.2-1.0); Calcium 8.9 MG/DL (8.5-10.1); Osmolality,Calculated 284.7 MOS/KG (273-304)
[2020-01-12] MEDS: PANTOPRAZOLE 40 MG VIAL IV SCH (08:12)
[2020-01-12] MEDS ORDERED: ALBUTEROL/IPRATROPIUM 3 ML NEB RESP TX PRN (08:43)
[2020-01-12] MEDS ORDERED: NITROGLYCERIN SL 0.4 MG TABLET SL PRN (08:43)
[2020-01-12] MEDS ORDERED: HEPARIN 10,000 UNIT/10 ML VIAL IV SCH (08:45)
[2020-01-12] MEDS ORDERED: ERGOCALCIFEROL 50,000 UNIT CAPSULE PO SCH (09:00)
[2020-01-12] MEDS: FOLIC ACID 1 MG TABLET PO SCH (09:22)
[2020-01-12] MEDS: ASPIRIN EC 81 MG TABLET PO SCH (09:22)
[2020-01-12] MEDS: LEVOTHYROXINE 88 MCG TABLET PO SCH (09:22)
[2020-01-12] MEDS: carvediloL 12.5 MG TABLET PO SCH ×2 (09:23→20:33)
[2020-01-12] MEDS: amLODIPine 10 MG TABLET PO SCH (09:23)
[2020-01-12] MEDS: CYANOCOBALAMIN 500 MCG TABLET PO SCH (09:23)
[2020-01-12] MEDS: ATORVASTATIN 20 MG TABLET PO SCH (09:23)
[2020-01-12] MEDS: ISOSORBIDE MONONITRATE 60 MG TABLET PO SCH (20:33)
[2020-01-13] MEDS: LEVOTHYROXINE 88 MCG TABLET PO SCH (06:08)
[2020-01-13] MEDS: ATORVASTATIN 20 MG TABLET PO SCH (08:10)
[2020-01-13] MEDS: carvediloL 12.5 MG TABLET PO SCH ×2 (08:10→20:37)
[2020-01-13] MEDS: ASPIRIN EC 81 MG TABLET PO SCH (08:10)
[2020-01-13] MEDS: CLOPIDOGREL 75 MG TABLET PO SCH (08:10)
[2020-01-13] MEDS: CYANOCOBALAMIN 500 MCG TABLET PO SCH (08:10)
[2020-01-13] MEDS: PANTOPRAZOLE 40 MG VIAL IV SCH (08:10)
[2020-01-13] MEDS: FOLIC ACID 1 MG TABLET PO SCH (08:10)
[2020-01-13] MEDS: amLODIPine 10 MG TABLET PO SCH (08:10)
[2020-01-13] MEDS: ISOSORBIDE MONONITRATE 60 MG TABLET PO SCH (20:37)
[2020-01-14] MEDS: LEVOTHYROXINE 88 MCG TABLET PO SCH (06:19)
[2020-01-14] MEDS: FOLIC ACID 1 MG TABLET PO SCH (09:29)
[2020-01-14] MEDS: ATORVASTATIN 20 MG TABLET PO SCH (09:29)
[2020-01-14] MEDS: CLOPIDOGREL 75 MG TABLET PO SCH (09:29)
[2020-01-14] MEDS: amLODIPine 10 MG TABLET PO SCH (09:30)
[2020-01-14] MEDS: CYANOCOBALAMIN 500 MCG TABLET PO SCH (09:30)
[2020-01-14] MEDS: ASPIRIN EC 81 MG TABLET PO SCH (09:30)
[2020-01-14] MEDS: PANTOPRAZOLE 40 MG VIAL IV SCH (09:30)
[2020-01-14] MEDS: carvediloL 12.5 MG TABLET PO SCH ×2 (09:30→20:46)
[2020-01-14] MEDS: ISOSORBIDE MONONITRATE 60 MG TABLET PO SCH (20:46)
[2020-01-15] MEDS: hydrALAZINE 20 MG/1 ML VIAL IV PRN (00:39)
[2020-01-15] MEDS: LEVOTHYROXINE 88 MCG TABLET PO SCH (06:29)
[2020-01-15] MEDS ORDERED: carvediloL 12.5 MG TABLET PO SCH (08:33)
[2020-01-15] MEDS: PANTOPRAZOLE 40 MG VIAL IV SCH (09:26)
[2020-01-15] MEDS: CYANOCOBALAMIN 500 MCG TABLET PO SCH (09:28)
[2020-01-15] MEDS: ASPIRIN EC 81 MG TABLET PO SCH (09:28)
[2020-01-15] MEDS: amLODIPine 10 MG TABLET PO SCH (09:28)
[2020-01-15] MEDS: CLOPIDOGREL 75 MG TABLET PO SCH (09:29)
[2020-01-15] MEDS: FOLIC ACID 1 MG TABLET PO SCH (09:29)
[2020-01-15] MEDS: ATORVASTATIN 20 MG TABLET PO SCH (09:29)
[2020-01-15 12:18] VITALS: BP 172/72
== END 2020-01-15 14:16 ==
LOC: EDUNIT# → EDBD → N.ED 19:11 → N.EDINP 19:11 → N.TELES 01-12 02:18
PROVIDERS: ADMIT Internal Medicine; ATTEND Internal Medicine

== ENCOUNTER 2020-04-10 10:37 | Inpatient (IN) ==
[2020-04-10 11:36] LABS: Bilirubin,Urine Negative (Negative); Blood, Urine Negative (Negative); Glucose,Urine (UA) 150 mg/dL (Negative); Ketones,Urine Negative (Negative); Mucus,Urine Occasional /LPF (Occasional); Nitrite,Urine Negative (Negative); Protein,Urine 100 MG/DL; RBC,Urine 1 /HPF (0-4); Squamous Epithelial Cell,Urine Few /HPF (0-10); Urine Appearance CLEAR (Clear); Urine Color Yellow (Yellow); Urine Specific Gravity 1.008 (1.001-1.035); Urine Urobilinogen < 2.0 EU/DL (0.2-1.0); WBC,Urine <1 /HPF (0-6)
[2020-04-10 11:50] LABS: Basophils # 0.1 10*3/uL (0.0-0.2); Basophils % 0.7 % (0.0-0.8); Eosinophils # 0.3 10*3/uL (0.0-0.87); Eosinophils % 4.2 % (0.00-10.9); Hematocrit 37.7 VOL% (35.7-47.0); Hemoglobin 12.1 GM/DL (12.0-16.0); Immature Granulocytes % 0.5 %; Immature Granulocytes Absolute 0.04 #; Lymphocytes # 0.8 10*3/uL (1.4-4.0); Lymphocytes % 10.2 % (21.3-54.2); Mean Corpuscular HGB Conc 32.1 GM/DL (32-36); Mean Corpuscular Volume 91.3 FL (87-102); Mean Platelet Volume 11.1 FL (9.6-12.0); Monocytes % 6.9 % (1.7-12.7); Neutrophils % 77.5 % (38.7-73.9); Platelet Count 151 T/CUMM (130-400); Red Blood Count 4.13 MC/CUMM (3.8-5.5); Red Cell Distribution Width 15.5 % (9.3-17.3); White Blood Count 8.2 T/CUMM (4-12)
[2020-04-10 12:13] LABS: Alanine Aminotransferase < 6 U/L (13-56); Albumin 3.1 G/DL (3.4-5.0); Alkaline Phosphatase 98 U/L (45-117); Aspartate Amino Transferase 14 U/L (0-37); Blood Urea Nitrogen 19 MG/DL (7-18); Carbon Dioxide 30 MMOL/L (21-32); Estimated Glom Filtration Rate 8 ML/MIN; Glucose 118 MG/DL (74-106); Osmolality,Calculated 275.8 MOS/KG (273-304); Potassium 3.9 MMOL/L (3.5-5.1); Sodium 137 MMOL/L (136-145); Total Protein 6.9 G/DL (6.4-8.3)
[2020-04-10] MEDS ORDERED: ACETAMINOPHEN 500 MG TABLET PO PRN (13:20)
[2020-04-10] MEDS ORDERED: ONDANSETRON 4 MG/2 ML VIAL IV PRN (16:18)
[2020-04-10] MEDS ORDERED: HYDROmorphone 2 MG/1 ML VIAL IV PRN (16:18)
[2020-04-10] MEDS ORDERED: NITROGLYCERIN SL 0.4 MG TABLET SL PRN (16:22)
[2020-04-10] MEDS ORDERED: ALBUTEROL/IPRATROPIUM 3 ML NEB RESP TX PRN (16:22)
[2020-04-10] MEDS: ENOXAPARIN 30 MG/0.3 ML SYRINGE SUBCUT SCH (17:28)
[2020-04-10] MEDS: SEVELAMER CARBONATE POWDER 2.4 GM PACK PO SCH (17:28)
[2020-04-10] MEDS: carvediloL 12.5 MG TABLET PO SCH (20:14)
[2020-04-10] MEDS: ISOSORBIDE MONONITRATE 60 MG TABLET PO SCH (20:18)
[2020-04-10] MEDS: DOCUSATE SODIUM 100 MG CAPSULE PO SCH (20:21)
[2020-04-10] MEDS ORDERED: traMADol 50 MG TABLET PO SCH (21:00)
[2020-04-11 05:52] LABS: Calcium 8.8 MG/DL (8.5-10.1); Osmolality,Calculated 281.7 MOS/KG (273-304); Potassium 3.9 MMOL/L (3.5-5.1)
[2020-04-11] MEDS: CLOPIDOGREL 75 MG TABLET PO SCH (08:27)
[2020-04-11] MEDS: amLODIPine 10 MG TABLET PO SCH (08:27)
[2020-04-11] MEDS: FOLIC ACID 1 MG TABLET PO SCH (08:27)
[2020-04-11] MEDS: ASPIRIN EC 81 MG TABLET PO SCH (08:28)
[2020-04-11] MEDS: carvediloL 12.5 MG TABLET PO SCH ×2 (08:28→20:55)
[2020-04-11] MEDS: DOCUSATE SODIUM 100 MG CAPSULE PO SCH ×2 (08:28→20:55)
[2020-04-11] MEDS: PANTOPRAZOLE 40 MG TABLET PO SCH (08:28)
[2020-04-11] MEDS: LEVOTHYROXINE 88 MCG TABLET PO SCH (08:28)
[2020-04-11] MEDS: ATORVASTATIN 20 MG TABLET PO SCH (08:28)
[2020-04-11] MEDS: SEVELAMER CARBONATE POWDER 2.4 GM PACK PO SCH ×3 (08:29→16:37)
[2020-04-11] MEDS ORDERED: MECOBALAMIN 1000 MCG PO SCH (09:00)
[2020-04-11] MEDS: CYANOCOBALAMIN 500 MCG TABLET PO SCH (09:11)
[2020-04-11] MEDS: ENOXAPARIN 30 MG/0.3 ML SYRINGE SUBCUT SCH (17:54)
[2020-04-11] MEDS: ISOSORBIDE MONONITRATE 60 MG TABLET PO SCH (20:55)
[2020-04-12] MEDS: ATORVASTATIN 20 MG TABLET PO SCH (09:12)
[2020-04-12] MEDS: LEVOTHYROXINE 88 MCG TABLET PO SCH (09:12)
[2020-04-12] MEDS: SEVELAMER CARBONATE POWDER 2.4 GM PACK PO SCH ×3 (09:13→17:40)
[2020-04-12] MEDS: amLODIPine 10 MG TABLET PO SCH (09:13)
[2020-04-12] MEDS: FOLIC ACID 1 MG TABLET PO SCH (09:14)
[2020-04-12] MEDS: ASPIRIN EC 81 MG TABLET PO SCH (09:14)
[2020-04-12] MEDS: DOCUSATE SODIUM 100 MG CAPSULE PO SCH ×2 (09:14→22:12)
[2020-04-12] MEDS: PANTOPRAZOLE 40 MG TABLET PO SCH (09:14)
[2020-04-12] MEDS: carvediloL 12.5 MG TABLET PO SCH ×2 (09:14→22:11)
[2020-04-12] MEDS: CYANOCOBALAMIN 500 MCG TABLET PO SCH (09:14)
[2020-04-12] MEDS: traMADol 50 MG TABLET PO SCH ×3 (12:57→22:12)
[2020-04-12] MEDS: ERGOCALCIFEROL 50,000 UNIT CAPSULE PO SCH (17:33)
[2020-04-12] MEDS: ENOXAPARIN 30 MG/0.3 ML SYRINGE SUBCUT SCH (17:34)
[2020-04-12] MEDS: ISOSORBIDE MONONITRATE 60 MG TABLET PO SCH (22:11)
[2020-04-13 06:18] LABS: Alanine Aminotransferase < 6 U/L (13-56); Alkaline Phosphatase 87 U/L (45-117); Aspartate Amino Transferase 14 U/L (0-37); Blood Urea Nitrogen 37 MG/DL (7-18); Carbon Dioxide 23 MMOL/L (21-32); Estimated Glom Filtration Rate 5 ML/MIN; Glucose 96 MG/DL (74-106); Osmolality,Calculated 274.4 MOS/KG (273-304); Potassium 3.8 MMOL/L (3.5-5.1); Sodium 133 MMOL/L (136-145); Total Protein 6.7 G/DL (6.4-8.3)
[2020-04-13] MEDS: SEVELAMER CARBONATE POWDER 2.4 GM PACK PO SCH ×3 (10:20→17:24)
[2020-04-13] MEDS: carvediloL 12.5 MG TABLET PO SCH ×2 (10:21→21:30)
[2020-04-13] MEDS: ASPIRIN EC 81 MG TABLET PO SCH (10:21)
[2020-04-13] MEDS: CYANOCOBALAMIN 500 MCG TABLET PO SCH (10:21)
[2020-04-13] MEDS: DOCUSATE SODIUM 100 MG CAPSULE PO SCH ×2 (10:21→21:30)
[2020-04-13] MEDS: traMADol 50 MG TABLET PO SCH ×3 (10:21→21:30)
[2020-04-13] MEDS: LEVOTHYROXINE 88 MCG TABLET PO SCH (10:21)
[2020-04-13] MEDS: PANTOPRAZOLE 40 MG TABLET PO SCH (10:21)
[2020-04-13] MEDS: amLODIPine 10 MG TABLET PO SCH (10:21)
[2020-04-13] MEDS: FOLIC ACID 1 MG TABLET PO SCH (10:22)
[2020-04-13] MEDS: ATORVASTATIN 20 MG TABLET PO SCH (10:22)
[2020-04-13] MEDS: ENOXAPARIN 30 MG/0.3 ML SYRINGE SUBCUT SCH (17:24)
[2020-04-13] MEDS: ISOSORBIDE MONONITRATE 60 MG TABLET PO SCH (21:30)
[2020-04-14] MEDS: methylPREDNISolone SOD SUC 40 MG/1 ML VIAL IV SCH ×3 (00:09→23:31)
[2020-04-14 06:20] LABS: Basophils % 0.6 % (0.0-0.8); Eosinophils % 0.5 % (0.00-10.9); Hematocrit 40.6 VOL% (35.7-47.0); Hemoglobin 13.5 GM/DL (12.0-16.0); Immature Granulocytes % 0.3 %; Immature Granulocytes Absolute 0.02 #; Lymphocytes # 0.5 10*3/uL (1.4-4.0); Lymphocytes % 7.9 % (21.3-54.2); Mean Corpuscular HGB Conc 33.3 GM/DL (32-36); Mean Corpuscular Volume 87.9 FL (87-102); Mean Platelet Volume 11.2 FL (9.6-12.0); Monocytes % 1.6 % (1.7-12.7); Neutrophils % 89.1 % (38.7-73.9); Platelet Count 154 T/CUMM (130-400); Red Blood Count 4.62 MC/CUMM (3.8-5.5); Red Cell Distribution Width 14.6 % (9.3-17.3); White Blood Count 6.3 T/CUMM (4-12)
[2020-04-14 06:46] LABS: Alanine Aminotransferase < 9 U/L (13-56); Albumin 3.2 G/DL (3.4-5.0); Alkaline Phosphatase 95 U/L (45-117); Aspartate Amino Transferase 15 U/L (0-37); Blood Urea Nitrogen 50 MG/DL (7-18); Calcium 9.2 MG/DL (8.5-10.1); Carbon Dioxide 21 MMOL/L (21-32); Estimated Glom Filtration Rate 4 ML/MIN; Glucose 156 MG/DL (74-106); Osmolality,Calculated 279.5 MOS/KG (273-304); Potassium 5.1 MMOL/L (3.5-5.1); Sodium 132 MMOL/L (136-145); Total Protein 7.3 G/DL (6.4-8.3)
[2020-04-14] MEDS: traMADol 50 MG TABLET PO SCH ×3 (10:44→21:21)
[2020-04-14] MEDS: SEVELAMER CARBONATE POWDER 2.4 GM PACK PO SCH ×3 (10:46→17:24)
[2020-04-14] MEDS: amLODIPine 10 MG TABLET PO SCH (12:51)
[2020-04-14] MEDS: CYANOCOBALAMIN 500 MCG TABLET PO SCH (12:51)
[2020-04-14] MEDS: DOCUSATE SODIUM 100 MG CAPSULE PO SCH ×2 (12:52→21:21)
[2020-04-14] MEDS: FOLIC ACID 1 MG TABLET PO SCH (12:52)
[2020-04-14] MEDS: PANTOPRAZOLE 40 MG TABLET PO SCH (12:52)
[2020-04-14] MEDS: LEVOTHYROXINE 88 MCG TABLET PO SCH (12:52)
[2020-04-14] MEDS: ASPIRIN EC 81 MG TABLET PO SCH (12:52)
[2020-04-14] MEDS: carvediloL 12.5 MG TABLET PO SCH ×2 (12:52→21:22)
[2020-04-14] MEDS: ATORVASTATIN 20 MG TABLET PO SCH (12:52)
[2020-04-14] MEDS: ENOXAPARIN 30 MG/0.3 ML SYRINGE SUBCUT SCH (17:24)
[2020-04-14] MEDS: ISOSORBIDE MONONITRATE 60 MG TABLET PO SCH (21:22)
[2020-04-15] MEDS: SEVELAMER CARBONATE POWDER 2.4 GM PACK PO SCH ×3 (08:28→17:08)
[2020-04-15] MEDS: traMADol 50 MG TABLET PO SCH ×3 (08:28→20:31)
[2020-04-15] MEDS: FOLIC ACID 1 MG TABLET PO SCH (08:29)
[2020-04-15] MEDS: ATORVASTATIN 20 MG TABLET PO SCH (08:29)
[2020-04-15] MEDS: amLODIPine 10 MG TABLET PO SCH (08:29)
[2020-04-15] MEDS: ASPIRIN EC 81 MG TABLET PO SCH (08:30)
[2020-04-15] MEDS: CYANOCOBALAMIN 500 MCG TABLET PO SCH (08:30)
[2020-04-15] MEDS: carvediloL 12.5 MG TABLET PO SCH ×2 (08:30→20:30)
[2020-04-15] MEDS: DOCUSATE SODIUM 100 MG CAPSULE PO SCH ×2 (08:30→20:30)
[2020-04-15] MEDS: PANTOPRAZOLE 40 MG TABLET PO SCH (08:30)
[2020-04-15] MEDS: LEVOTHYROXINE 88 MCG TABLET PO SCH (08:31)
[2020-04-15] MEDS: methylPREDNISolone SOD SUC 40 MG/1 ML VIAL IV SCH (12:26)
[2020-04-15] MEDS ORDERED: TUBERCULIN SKIN TEST 0.1 ML SYRINGE INTRADERM ONE (15:06)
[2020-04-15] MEDS: ENOXAPARIN 30 MG/0.3 ML SYRINGE SUBCUT SCH (17:10)
[2020-04-15] MEDS: ISOSORBIDE MONONITRATE 60 MG TABLET PO SCH (20:30)
[2020-04-16] MEDS: methylPREDNISolone SOD SUC 40 MG/1 ML VIAL IV SCH ×2 (00:09→13:42)
[2020-04-16] MEDS: DOCUSATE SODIUM 100 MG CAPSULE PO SCH ×2 (08:11→21:27)
[2020-04-16] MEDS: SEVELAMER CARBONATE POWDER 2.4 GM PACK PO SCH ×3 (08:11→17:58)
[2020-04-16] MEDS: ASPIRIN EC 81 MG TABLET PO SCH (08:11)
[2020-04-16] MEDS: FOLIC ACID 1 MG TABLET PO SCH (08:11)
[2020-04-16] MEDS: carvediloL 12.5 MG TABLET PO SCH ×2 (08:11→21:27)
[2020-04-16] MEDS: PANTOPRAZOLE 40 MG TABLET PO SCH (08:12)
[2020-04-16] MEDS: CYANOCOBALAMIN 500 MCG TABLET PO SCH (08:12)
[2020-04-16] MEDS: amLODIPine 10 MG TABLET PO SCH (08:12)
[2020-04-16] MEDS: ATORVASTATIN 20 MG TABLET PO SCH (08:12)
[2020-04-16] MEDS: traMADol 50 MG TABLET PO SCH ×3 (08:15→21:26)
[2020-04-16] MEDS: LEVOTHYROXINE 88 MCG TABLET PO SCH (08:15)
[2020-04-16] MEDS: ENOXAPARIN 30 MG/0.3 ML SYRINGE SUBCUT SCH (17:58)
[2020-04-16] MEDS: ISOSORBIDE MONONITRATE 60 MG TABLET PO SCH (21:26)
[2020-04-17] MEDS: methylPREDNISolone SOD SUC 40 MG/1 ML VIAL IV SCH ×3 (00:01→23:56)
[2020-04-17] MEDS: DOCUSATE SODIUM 100 MG CAPSULE PO SCH ×2 (10:39→21:26)
[2020-04-17] MEDS: amLODIPine 10 MG TABLET PO SCH (10:39)
[2020-04-17] MEDS: ATORVASTATIN 20 MG TABLET PO SCH (10:39)
[2020-04-17] MEDS: PANTOPRAZOLE 40 MG TABLET PO SCH (10:39)
[2020-04-17] MEDS: SEVELAMER CARBONATE POWDER 2.4 GM PACK PO SCH ×3 (10:39→17:12)
[2020-04-17] MEDS: LEVOTHYROXINE 88 MCG TABLET PO SCH (10:39)
[2020-04-17] MEDS: carvediloL 12.5 MG TABLET PO SCH ×2 (10:39→21:28)
[2020-04-17] MEDS: FOLIC ACID 1 MG TABLET PO SCH (10:39)
[2020-04-17] MEDS: traMADol 50 MG TABLET PO SCH ×3 (10:40→21:26)
[2020-04-17] MEDS: CYANOCOBALAMIN 500 MCG TABLET PO SCH (10:40)
[2020-04-17] MEDS: ENOXAPARIN 30 MG/0.3 ML SYRINGE SUBCUT SCH (17:12)
[2020-04-17] MEDS: ISOSORBIDE MONONITRATE 60 MG TABLET PO SCH (21:25)
[2020-04-18] MEDS: SEVELAMER CARBONATE POWDER 2.4 GM PACK PO SCH ×3 (07:26→17:12)
[2020-04-18] MEDS ORDERED: LIDOCAINE 2% 5 ML VIAL ONE (08:56)
[2020-04-18] MEDS: DOCUSATE SODIUM 100 MG CAPSULE PO SCH ×2 (09:00→21:11)
[2020-04-18] MEDS: carvediloL 12.5 MG TABLET PO SCH ×2 (09:00→21:11)
[2020-04-18] MEDS: traMADol 50 MG TABLET PO SCH ×3 (09:00→21:11)
[2020-04-18] MEDS ORDERED: DEXMEDETOMIDINE 200 MCG/2 ML VIAL ONE (09:26)
[2020-04-18] MEDS ORDERED: KETAMINE 500 MG/10 ML VIAL ONE (09:27)
[2020-04-18] MEDS ORDERED: hydrALAZINE 20 MG/1 ML VIAL ONE (09:50)
[2020-04-18] MEDS ORDERED: propofoL 200 MG/20 ML VIAL IV ONE (09:50)
[2020-04-18] MEDS ORDERED: LABETALOL 20 MG/4 ML SYRINGE IV ONE (09:50)
[2020-04-18] MEDS ORDERED: TISSUE ADHESIVE 1 EACH APPLICATOR TOP ONE (09:53)
[2020-04-18] MEDS: methylPREDNISolone SOD SUC 40 MG/1 ML VIAL IV SCH (12:00)
[2020-04-18] MEDS: CYANOCOBALAMIN 500 MCG TABLET PO SCH (14:36)
[2020-04-18] MEDS: LEVOTHYROXINE 88 MCG TABLET PO SCH (14:36)
[2020-04-18] MEDS: PANTOPRAZOLE 40 MG TABLET PO SCH (14:36)
[2020-04-18] MEDS: FOLIC ACID 1 MG TABLET PO SCH (14:37)
[2020-04-18] MEDS: ATORVASTATIN 20 MG TABLET PO SCH (14:38)
[2020-04-18] MEDS: amLODIPine 10 MG TABLET PO SCH (14:38)
[2020-04-18] MEDS: ENOXAPARIN 30 MG/0.3 ML SYRINGE SUBCUT SCH (17:12)
[2020-04-18] MEDS: ISOSORBIDE MONONITRATE 60 MG TABLET PO SCH (21:11)
[2020-04-19] MEDS: methylPREDNISolone SOD SUC 40 MG/1 ML VIAL IV SCH ×2 (01:15→12:08)
[2020-04-19] MEDS: ACETAMINOPHEN 325 MG TABLET PO PRN (01:25)
[2020-04-19 06:46] LABS: Basophils % 0.1 % (0.0-0.8); Eosinophils % 0.4 % (0.00-10.9); Hematocrit 40.3 VOL% (35.7-47.0); Hemoglobin 13.2 GM/DL (12.0-16.0); Immature Granulocytes % 0.7 %; Immature Granulocytes Absolute 0.06 #; Lymphocytes # 0.5 10*3/uL (1.4-4.0); Lymphocytes % 6.3 % (21.3-54.2); Mean Corpuscular HGB Conc 32.8 GM/DL (32-36); Mean Corpuscular Volume 88.4 FL (87-102); Mean Platelet Volume 11.4 FL (9.6-12.0); Monocytes % 2.9 % (1.7-12.7); Neutrophils % 89.6 % (38.7-73.9); Platelet Count 186 T/CUMM (130-400); Red Blood Count 4.56 MC/CUMM (3.8-5.5); Red Cell Distribution Width 14.6 % (9.3-17.3); White Blood Count 8.2 T/CUMM (4-12)
[2020-04-19 08:18] LABS: Calcium 8.8 MG/DL (8.5-10.1); Osmolality,Calculated 279.5 MOS/KG (273-304); Potassium 4.4 MMOL/L (3.5-5.1)
[2020-04-19] MEDS: traMADol 50 MG TABLET PO SCH ×3 (09:11→21:05)
[2020-04-19] MEDS: DOCUSATE SODIUM 100 MG CAPSULE PO SCH ×2 (09:12→21:06)
[2020-04-19] MEDS: CYANOCOBALAMIN 500 MCG TABLET PO SCH (09:12)
[2020-04-19] MEDS: amLODIPine 10 MG TABLET PO SCH (09:12)
[2020-04-19] MEDS: ATORVASTATIN 20 MG TABLET PO SCH (09:13)
[2020-04-19] MEDS: LEVOTHYROXINE 88 MCG TABLET PO SCH (09:13)
[2020-04-19] MEDS: carvediloL 12.5 MG TABLET PO SCH ×2 (09:13→21:06)
[2020-04-19] MEDS: FOLIC ACID 1 MG TABLET PO SCH (09:13)
[2020-04-19] MEDS: PANTOPRAZOLE 40 MG TABLET PO SCH (09:13)
[2020-04-19] MEDS: ERGOCALCIFEROL 50,000 UNIT CAPSULE PO SCH (09:14)
[2020-04-19] MEDS: SEVELAMER CARBONATE POWDER 2.4 GM PACK PO SCH ×3 (09:14→17:17)
[2020-04-19] MEDS: ENOXAPARIN 30 MG/0.3 ML SYRINGE SUBCUT SCH (17:17)
[2020-04-19] MEDS: ISOSORBIDE MONONITRATE 60 MG TABLET PO SCH (21:06)
[2020-04-20] MEDS: methylPREDNISolone SOD SUC 40 MG/1 ML VIAL IV SCH ×2 (00:08→11:30)
[2020-04-20 05:48] LABS: Osmolality,Calculated 286.8 MOS/KG (273-304); Potassium 4.8 MMOL/L (3.5-5.1)
[2020-04-20] MEDS: traMADol 50 MG TABLET PO SCH ×3 (08:40→20:36)
[2020-04-20] MEDS: SEVELAMER CARBONATE POWDER 2.4 GM PACK PO SCH ×3 (08:40→17:13)
[2020-04-20] MEDS: amLODIPine 10 MG TABLET PO SCH (08:41)
[2020-04-20] MEDS: FOLIC ACID 1 MG TABLET PO SCH (08:41)
[2020-04-20] MEDS: PANTOPRAZOLE 40 MG TABLET PO SCH (08:41)
[2020-04-20] MEDS: CYANOCOBALAMIN 500 MCG TABLET PO SCH (08:41)
[2020-04-20] MEDS: DOCUSATE SODIUM 100 MG CAPSULE PO SCH ×2 (08:41→20:36)
[2020-04-20] MEDS: carvediloL 12.5 MG TABLET PO SCH ×2 (08:41→20:36)
[2020-04-20] MEDS: LEVOTHYROXINE 88 MCG TABLET PO SCH (08:42)
[2020-04-20] MEDS: ATORVASTATIN 20 MG TABLET PO SCH (08:42)
[2020-04-20] MEDS: CLOPIDOGREL 75 MG TABLET PO SCH (09:16)
[2020-04-20] MEDS: ENOXAPARIN 30 MG/0.3 ML SYRINGE SUBCUT SCH (17:14)
[2020-04-20] MEDS: ISOSORBIDE MONONITRATE 60 MG TABLET PO SCH (20:37)
[2020-04-21] MEDS: methylPREDNISolone SOD SUC 40 MG/1 ML VIAL IV SCH ×3 (01:41→23:55)
[2020-04-21] MEDS: ACETAMINOPHEN 325 MG TABLET PO PRN (01:45)
[2020-04-21] MEDS: FOLIC ACID 1 MG TABLET PO SCH (09:03)
[2020-04-21] MEDS: traMADol 50 MG TABLET PO SCH ×3 (09:03→20:58)
[2020-04-21] MEDS: CLOPIDOGREL 75 MG TABLET PO SCH (09:03)
[2020-04-21] MEDS: DOCUSATE SODIUM 100 MG CAPSULE PO SCH ×2 (09:03→20:58)
[2020-04-21] MEDS: amLODIPine 10 MG TABLET PO SCH (09:03)
[2020-04-21] MEDS: PANTOPRAZOLE 40 MG TABLET PO SCH (09:03)
[2020-04-21] MEDS: ATORVASTATIN 20 MG TABLET PO SCH (09:03)
[2020-04-21] MEDS: CYANOCOBALAMIN 500 MCG TABLET PO SCH (09:03)
[2020-04-21] MEDS: carvediloL 12.5 MG TABLET PO SCH ×2 (09:04→20:58)
[2020-04-21] MEDS: SEVELAMER CARBONATE POWDER 2.4 GM PACK PO SCH ×3 (09:04→17:08)
[2020-04-21] MEDS: LEVOTHYROXINE 88 MCG TABLET PO SCH (09:04)
[2020-04-21] MEDS: ASPIRIN EC 81 MG TABLET PO SCH (09:09)
[2020-04-21 09:57] LABS: Calcium 9.1 MG/DL (8.5-10.1); Osmolality,Calculated 291.9 MOS/KG (273-304); Potassium 5.4 MMOL/L (3.5-5.1)
[2020-04-21] MEDS ORDERED: TUBERCULIN SKIN TEST 0.1 ML SYRINGE INTRADERM ONE (12:19)
[2020-04-21] MEDS: ENOXAPARIN 30 MG/0.3 ML SYRINGE SUBCUT SCH (17:07)
[2020-04-21] MEDS: ISOSORBIDE MONONITRATE 60 MG TABLET PO SCH (20:58)
[2020-04-22] MEDS: SEVELAMER CARBONATE POWDER 2.4 GM PACK PO SCH ×3 (08:41→17:10)
[2020-04-22] MEDS: traMADol 50 MG TABLET PO SCH ×3 (08:43→20:43)
[2020-04-22] MEDS: LEVOTHYROXINE 88 MCG TABLET PO SCH (08:43)
[2020-04-22] MEDS: PANTOPRAZOLE 40 MG TABLET PO SCH (08:43)
[2020-04-22] MEDS: CYANOCOBALAMIN 500 MCG TABLET PO SCH (08:43)
[2020-04-22] MEDS: FOLIC ACID 1 MG TABLET PO SCH (08:43)
[2020-04-22] MEDS: ATORVASTATIN 20 MG TABLET PO SCH (08:43)
[2020-04-22] MEDS: DOCUSATE SODIUM 100 MG CAPSULE PO SCH ×2 (08:43→20:43)
[2020-04-22] MEDS: amLODIPine 10 MG TABLET PO SCH (08:43)
[2020-04-22] MEDS: CLOPIDOGREL 75 MG TABLET PO SCH (08:43)
[2020-04-22] MEDS: ASPIRIN EC 81 MG TABLET PO SCH (08:44)
[2020-04-22] MEDS: carvediloL 12.5 MG TABLET PO SCH ×2 (08:47→20:43)
[2020-04-22] MEDS: methylPREDNISolone SOD SUC 40 MG/1 ML VIAL IV SCH (11:27)
[2020-04-22] MEDS: ENOXAPARIN 30 MG/0.3 ML SYRINGE SUBCUT SCH (17:10)
[2020-04-22] MEDS: ISOSORBIDE MONONITRATE 60 MG TABLET PO SCH (20:43)
[2020-04-23] MEDS: methylPREDNISolone SOD SUC 40 MG/1 ML VIAL IV SCH ×2 (00:08→12:45)
[2020-04-23] MEDS: SEVELAMER CARBONATE POWDER 2.4 GM PACK PO SCH ×3 (08:11→17:03)
[2020-04-23] MEDS ORDERED: HEPARIN 10,000 UNIT/10 ML VIAL IV PRN (11:06)
[2020-04-23 11:10] LABS: Albumin (SPE) 4.7 G/DL (3.2-5.3); Albumin (SPE) Rel % 67.6 %; Alpha 1 (SPE) 0.2 G/DL (0.1-0.4); Alpha 1 (SPE) Rel % 2.3 %; Alpha 2 (SPE) 0.7 G/DL (0.4-1.0); Alpha 2 (SPE) Rel % 10.3 %; Beta (SPE) 0.5 G/DL (0.5-1.1); Beta (SPE) Rel % 7.7 %; Gamma (SPE) 0.8 G/DL (0.7-1.7); Gamma (SPE) Rel % 12.1 %
[2020-04-23] MEDS: FOLIC ACID 1 MG TABLET PO SCH (12:40)
[2020-04-23] MEDS: CLOPIDOGREL 75 MG TABLET PO SCH (12:40)
[2020-04-23] MEDS: CYANOCOBALAMIN 500 MCG TABLET PO SCH (12:40)
[2020-04-23] MEDS: ATORVASTATIN 20 MG TABLET PO SCH (12:40)
[2020-04-23] MEDS: ASPIRIN EC 81 MG TABLET PO SCH (12:40)
[2020-04-23] MEDS: amLODIPine 10 MG TABLET PO SCH (12:41)
[2020-04-23] MEDS: traMADol 50 MG TABLET PO SCH ×3 (12:41→21:01)
[2020-04-23] MEDS: PANTOPRAZOLE 40 MG TABLET PO SCH (12:41)
[2020-04-23] MEDS: LEVOTHYROXINE 88 MCG TABLET PO SCH (12:41)
[2020-04-23] MEDS: DOCUSATE SODIUM 100 MG CAPSULE PO SCH ×2 (12:42→21:01)
[2020-04-23] MEDS: carvediloL 12.5 MG TABLET PO SCH ×2 (12:44→21:05)
[2020-04-23] MEDS: ENOXAPARIN 30 MG/0.3 ML SYRINGE SUBCUT SCH (17:04)
[2020-04-23] MEDS: ISOSORBIDE MONONITRATE 60 MG TABLET PO SCH (21:01)
[2020-04-24] MEDS: methylPREDNISolone SOD SUC 40 MG/1 ML VIAL IV SCH (00:50)
[2020-04-24 08:12] VITALS: BP 158/69
[2020-04-24] MEDS: SEVELAMER CARBONATE POWDER 2.4 GM PACK PO SCH (08:31)
[2020-04-24] MEDS: DOCUSATE SODIUM 100 MG CAPSULE PO SCH (08:32)
[2020-04-24] MEDS: traMADol 50 MG TABLET PO SCH (08:32)
[2020-04-24] MEDS: amLODIPine 10 MG TABLET PO SCH (08:32)
[2020-04-24] MEDS: CYANOCOBALAMIN 500 MCG TABLET PO SCH (08:32)
[2020-04-24] MEDS: ASPIRIN EC 81 MG TABLET PO SCH (08:33)
[2020-04-24] MEDS: LEVOTHYROXINE 88 MCG TABLET PO SCH (08:33)
[2020-04-24] MEDS: PANTOPRAZOLE 40 MG TABLET PO SCH (08:33)
[2020-04-24] MEDS: CLOPIDOGREL 75 MG TABLET PO SCH (08:33)
[2020-04-24] MEDS: carvediloL 12.5 MG TABLET PO SCH (08:33)
[2020-04-24] MEDS: FOLIC ACID 1 MG TABLET PO SCH (08:33)
[2020-04-24] MEDS: ATORVASTATIN 20 MG TABLET PO SCH (08:34)
== END 2020-04-24 11:54 | DRG 477 ==
LOC: N.ED 10:37 → N.EDINP 13:20 → N.TELEN 15:11
PROVIDERS: ADMIT Internal Medicine; ATTEND Internal Medicine

== ENCOUNTER 2021-01-31 08:52 | Inpatient (IN) ==
[2021-01-31] MEDS ORDERED: NITROGLYCERIN SL 0.4 MG TABLET SL PRN (09:20)
[2021-01-31] MEDS ORDERED: ASPIRIN 325 MG TABLET PO STA (09:20)
[2021-01-31] MEDS ORDERED: MORPHINE 2 MG/1 ML SYRINGE IV STA ×2 (09:20→10:30)
[2021-01-31 09:32] LABS: Basophils # 0.1 10*3/uL (0.0-0.2); Basophils % 0.9 % (0.0-0.8); Eosinophils # 0.2 10*3/uL (0.0-0.87); Hematocrit 33.3 VOL% (35.7-47.0); Hemoglobin 10.5 GM/DL (12.0-16.0); Immature Granulocytes % 0.5 %; Immature Granulocytes Absolute 0.04 #; Lymphocytes # 0.8 10*3/uL (1.4-4.0); Lymphocytes % 9.5 % (21.3-54.2); Mean Corpuscular HGB Conc 31.5 GM/DL (32-36); Mean Corpuscular Volume 96.5 FL (87-102); Mean Platelet Volume 10.8 FL (9.6-12.0); Monocytes % 7.2 % (1.7-12.7); Neutrophils % 78.9 % (38.7-73.9); Platelet Count 153 T/CUMM (130-400); Red Blood Count 3.45 MC/CUMM (3.8-5.5); Red Cell Distribution Width 16.4 % (9.3-17.3); White Blood Count 8.1 T/CUMM (4-12)
[2021-01-31 09:42] LABS: PT Patient Result 11.3 SECS (10.5-12.0)
[2021-01-31 10:01] LABS: Alanine Aminotransferase < 6 U/L (13-56); Albumin 3.3 G/DL (3.4-5.0); Alkaline Phosphatase 116 U/L (45-117); Aspartate Amino Transferase 12 U/L (0-37); Blood Urea Nitrogen 21 MG/DL (7-18); Calcium 8.8 MG/DL (8.5-10.1); Carbon Dioxide 32 MMOL/L (21-32); Estimated Glom Filtration Rate 11 ML/MIN; Glucose 104 MG/DL (74-106); Osmolality,Calculated 283.3 MOS/KG (273-304); Potassium 3.4 MMOL/L (3.5-5.1); Sodium 141 MMOL/L (136-145); Total Protein 6.7 G/DL (6.4-8.2)
[2021-01-31] MEDS ORDERED: hydrALAZINE 20 MG/1 ML VIAL ONE (10:15)
[2021-01-31] MEDS ORDERED: hydrALAZINE 20 MG/1 ML VIAL IV STA (10:19)
[2021-01-31] MEDS ORDERED: FUROSEMIDE 100 MG/10 ML VIAL IV STA (10:37)
[2021-01-31] MEDS ORDERED: FUROSEMIDE 40 MG/4 ML VIAL ONE (10:40)
[2021-01-31] MEDS ORDERED: ACETAMINOPHEN 325 MG TABLET PO PRN (11:02)
[2021-01-31] MEDS ORDERED: ONDANSETRON 4 MG/2 ML VIAL IV PRN (11:02)
[2021-01-31] MEDS ORDERED: KETOROLAC 30 MG/1 ML VIAL IV ONE (13:43)
[2021-01-31] MEDS ORDERED: ALUMINUM/MAGNES/SIMETH MAX STR 30 ML UDCUP PO ONE (13:43)
[2021-01-31] MEDS ORDERED: ALUMINUM/MAGNES/SIMETH MAX STR 30 ML UDCUP PO PRN (13:43)
[2021-01-31] MEDS: LIDOCAINE 5% PATCH TRANSDERM SCH (14:40)
[2021-01-31] MEDS: SEVELAMER CARBONATE POWDER 2.4 GM PACK PO SCH ×2 (14:42→20:58)
[2021-01-31] MEDS: cloNIDine 0.1 MG TABLET PO PRN (16:52)
[2021-01-31] MEDS: DOCUSATE SODIUM 100 MG CAPSULE PO SCH (20:57)
[2021-01-31] MEDS: carvediloL 25 MG TABLET PO SCH (20:57)
[2021-01-31] MEDS: ISOSORBIDE MONONITRATE 60 MG TABLET PO SCH (20:57)
[2021-01-31] MEDS ORDERED: carvediloL 12.5 MG TABLET PO SCH (21:00)
[2021-02-01 04:59] LABS: Basophils # 0.1 10*3/uL (0.0-0.2); Basophils % 0.5 % (0.0-0.8); Eosinophils # 0.3 10*3/uL (0.0-0.87); Eosinophils % 3.4 % (0.00-10.9); Hematocrit 30.5 VOL% (35.7-47.0); Hemoglobin 9.5 GM/DL (12.0-16.0); Immature Granulocytes % 0.4 %; Immature Granulocytes Absolute 0.04 #; Lymphocytes # 0.7 10*3/uL (1.4-4.0); Lymphocytes % 7.7 % (21.3-54.2); Mean Corpuscular HGB Conc 31.1 GM/DL (32-36); Mean Corpuscular Volume 98.4 FL (87-102); Mean Platelet Volume 11.6 FL (9.6-12.0); Monocytes % 7.8 % (1.7-12.7); Neutrophils % 80.2 % (38.7-73.9); Platelet Count 142 T/CUMM (130-400); Red Cell Distribution Width 16.3 % (9.3-17.3); White Blood Count 9.2 T/CUMM (4-12)
[2021-02-01] MEDS: cloNIDine 0.1 MG TABLET PO PRN (05:03)
[2021-02-01 05:20] LABS: Alanine Aminotransferase < 6 U/L (13-56); Albumin 2.7 G/DL (3.4-5.0); Alkaline Phosphatase 98 U/L (45-117); Aspartate Amino Transferase 12 U/L (0-37); Blood Urea Nitrogen 29 MG/DL (7-18); Calcium 8.7 MG/DL (8.5-10.1); Carbon Dioxide 31 MMOL/L (21-32); Estimated Glom Filtration Rate 8 ML/MIN; Glucose 111 MG/DL (74-106); Osmolality,Calculated 285.4 MOS/KG (273-304); Potassium 3.6 MMOL/L (3.5-5.1); Sodium 140 MMOL/L (136-145); Total Protein 6.1 G/DL (6.4-8.2)
[2021-02-01] MEDS: LEVOTHYROXINE 88 MCG TABLET PO SCH (06:12)
[2021-02-01] MEDS: amLODIPine 10 MG TABLET PO SCH (09:08)
[2021-02-01] MEDS: DOCUSATE SODIUM 100 MG CAPSULE PO SCH ×2 (09:08→21:17)
[2021-02-01] MEDS: CLOPIDOGREL 75 MG TABLET PO SCH (09:08)
[2021-02-01] MEDS: PANTOPRAZOLE 40 MG TABLET PO SCH (09:08)
[2021-02-01] MEDS: ATORVASTATIN 20 MG TABLET PO SCH (09:08)
[2021-02-01] MEDS: carvediloL 25 MG TABLET PO SCH ×2 (09:08→16:25)
[2021-02-01] MEDS: ASPIRIN EC 81 MG TABLET PO SCH (09:09)
[2021-02-01] MEDS: SEVELAMER CARBONATE POWDER 2.4 GM PACK PO SCH ×3 (09:10→21:16)
[2021-02-01] MEDS: LIDOCAINE 5% PATCH TRANSDERM SCH (09:14)
[2021-02-01] MEDS: cloNIDine 0.1 MG TABLET PO SCH ×2 (12:05→21:16)
[2021-02-01] MEDS: ISOSORBIDE MONONITRATE 60 MG TABLET PO SCH (21:17)
[2021-02-02 05:08] LABS: Basophils % 0.4 % (0.0-0.8); Eosinophils # 0.4 10*3/uL (0.0-0.87); Eosinophils % 5.2 % (0.00-10.9); Hematocrit 29.5 VOL% (35.7-47.0); Hemoglobin 9.1 GM/DL (12.0-16.0); Immature Granulocytes % 0.3 %; Immature Granulocytes Absolute 0.02 #; Lymphocytes # 0.9 10*3/uL (1.4-4.0); Lymphocytes % 13.1 % (21.3-54.2); Mean Corpuscular HGB Conc 30.8 GM/DL (32-36); Mean Platelet Volume 11.7 FL (9.6-12.0); Monocytes % 7.2 % (1.7-12.7); Neutrophils % 73.8 % (38.7-73.9); Platelet Count 137 T/CUMM (130-400); Red Blood Count 3.01 MC/CUMM (3.8-5.5); Red Cell Distribution Width 15.9 % (9.3-17.3)
[2021-02-02] MEDS: LEVOTHYROXINE 88 MCG TABLET PO SCH (06:33)
[2021-02-02] MEDS: CLOPIDOGREL 75 MG TABLET PO SCH (09:35)
[2021-02-02] MEDS: ASPIRIN EC 81 MG TABLET PO SCH (09:35)
[2021-02-02] MEDS: DOCUSATE SODIUM 100 MG CAPSULE PO SCH ×2 (09:35→21:12)
[2021-02-02] MEDS: PANTOPRAZOLE 40 MG TABLET PO SCH (09:35)
[2021-02-02] MEDS: LIDOCAINE 5% PATCH TRANSDERM SCH (09:36)
[2021-02-02] MEDS: SEVELAMER CARBONATE POWDER 2.4 GM PACK PO SCH ×3 (09:36→21:12)
[2021-02-02] MEDS: ATORVASTATIN 20 MG TABLET PO SCH (09:36)
[2021-02-02] MEDS ORDERED: HEPARIN 10,000 UNIT/10 ML VIAL IV SCH (12:30)
[2021-02-02] MEDS: carvediloL 25 MG TABLET PO SCH ×2 (14:13→17:24)
[2021-02-02] MEDS: cloNIDine 0.1 MG TABLET PO SCH ×2 (14:13→21:12)
[2021-02-02] MEDS: amLODIPine 10 MG TABLET PO SCH (14:14)
[2021-02-02] MEDS: ISOSORBIDE MONONITRATE 60 MG TABLET PO SCH (21:12)
[2021-02-03 05:55] LABS: Basophils % 0.4 % (0.0-0.8); Eosinophils # 0.4 10*3/uL (0.0-0.87); Eosinophils % 5.7 % (0.00-10.9); Hematocrit 29.7 VOL% (35.7-47.0); Hemoglobin 9.1 GM/DL (12.0-16.0); Immature Granulocytes % 0.4 %; Immature Granulocytes Absolute 0.03 #; Lymphocytes # 0.9 10*3/uL (1.4-4.0); Lymphocytes % 12.8 % (21.3-54.2); Mean Corpuscular HGB Conc 30.6 GM/DL (32-36); Mean Corpuscular Volume 99.3 FL (87-102); Mean Platelet Volume 11.9 FL (9.6-12.0); Monocytes % 8.8 % (1.7-12.7); Neutrophils % 71.9 % (38.7-73.9); Platelet Count 142 T/CUMM (130-400); Red Blood Count 2.99 MC/CUMM (3.8-5.5); Red Cell Distribution Width 15.6 % (9.3-17.3); White Blood Count 6.8 T/CUMM (4-12)
[2021-02-03] MEDS: LEVOTHYROXINE 88 MCG TABLET PO SCH (06:02)
[2021-02-03] MEDS: SEVELAMER CARBONATE POWDER 2.4 GM PACK PO SCH ×3 (09:32→20:54)
[2021-02-03] MEDS: LIDOCAINE 5% PATCH TRANSDERM SCH (09:32)
[2021-02-03] MEDS: ATORVASTATIN 20 MG TABLET PO SCH (09:32)
[2021-02-03] MEDS: CLOPIDOGREL 75 MG TABLET PO SCH (09:32)
[2021-02-03] MEDS: DOCUSATE SODIUM 100 MG CAPSULE PO SCH ×2 (09:33→20:55)
[2021-02-03] MEDS: cloNIDine 0.1 MG TABLET PO SCH ×2 (09:33→20:56)
[2021-02-03] MEDS: PANTOPRAZOLE 40 MG TABLET PO SCH (09:33)
[2021-02-03] MEDS: carvediloL 25 MG TABLET PO SCH ×2 (09:33→17:30)
[2021-02-03] MEDS: amLODIPine 10 MG TABLET PO SCH (09:34)
[2021-02-03] MEDS: traMADol 50 MG TABLET PO PRN (09:35)
[2021-02-03] MEDS: ASPIRIN EC 81 MG TABLET PO SCH (09:35)
[2021-02-03] MEDS: ISOSORBIDE MONONITRATE 60 MG TABLET PO SCH (20:55)
[2021-02-04] MEDS: LEVOTHYROXINE 88 MCG TABLET PO SCH (06:29)
[2021-02-04] MEDS: carvediloL 25 MG TABLET PO SCH ×2 (09:56→18:07)
[2021-02-04] MEDS: LIDOCAINE 5% PATCH TRANSDERM SCH (09:56)
[2021-02-04] MEDS: DOCUSATE SODIUM 100 MG CAPSULE PO SCH ×2 (09:56→21:57)
[2021-02-04] MEDS: PANTOPRAZOLE 40 MG TABLET PO SCH (09:56)
[2021-02-04] MEDS: ASPIRIN EC 81 MG TABLET PO SCH (09:56)
[2021-02-04] MEDS: SEVELAMER CARBONATE POWDER 2.4 GM PACK PO SCH ×3 (09:57→21:57)
[2021-02-04] MEDS: amLODIPine 10 MG TABLET PO SCH (15:07)
[2021-02-04] MEDS: ATORVASTATIN 20 MG TABLET PO SCH (15:07)
[2021-02-04] MEDS: cloNIDine 0.1 MG TABLET PO SCH ×2 (15:07→21:57)
[2021-02-04 18:47] LABS: Hepatitis B Core IgM Quant 0.06 Index; Hepatitis B Surface Ag Quant < 0.10 Index; Hepatitis B Surface Ag Result Non-Reactive (NonReactive); Hepatitis C Virus Ab Quant 0.11 Index; Hepatitis C Virus Ab Result Non-Reactive (NonReactive)
[2021-02-04] MEDS: ISOSORBIDE MONONITRATE 60 MG TABLET PO SCH (21:57)
[2021-02-05] MEDS: LEVOTHYROXINE 88 MCG TABLET PO SCH (06:25)
[2021-02-05] MEDS: SEVELAMER CARBONATE POWDER 2.4 GM PACK PO SCH (08:50)
[2021-02-05] MEDS: PANTOPRAZOLE 40 MG TABLET PO SCH (08:51)
[2021-02-05] MEDS: DOCUSATE SODIUM 100 MG CAPSULE PO SCH (08:51)
[2021-02-05] MEDS: ASPIRIN EC 81 MG TABLET PO SCH (08:51)
[2021-02-05] MEDS: cloNIDine 0.1 MG TABLET PO SCH (08:51)
[2021-02-05] MEDS: ATORVASTATIN 20 MG TABLET PO SCH (08:51)
[2021-02-05] MEDS: carvediloL 25 MG TABLET PO SCH (08:51)
[2021-02-05] MEDS: traMADol 50 MG TABLET PO PRN (08:51)
[2021-02-05] MEDS: amLODIPine 10 MG TABLET PO SCH (08:52)
[2021-02-05] MEDS: LIDOCAINE 5% PATCH TRANSDERM SCH (08:56)
[2021-02-05 12:41] VITALS: BP 152/78
== END 2021-02-05 13:15 | DRG 291 ==
LOC: EDUNIT# → EDBD → N.ED 08:52 → N.EDINP 11:02 → N.TELEN 12:07
PROVIDERS: ADMIT Internal Medicine; ATTEND Internal Medicine

== ENCOUNTER 2021-04-03 22:27 | Inpatient (IN) ==
[2021-04-03] MEDS ORDERED: ASPIRIN 325 MG TABLET PO STA (22:48)
[2021-04-03] MEDS ORDERED: NITROGLYCERIN SL 0.4 MG TABLET SL STA (23:17)
[2021-04-03] MEDS ORDERED: MORPHINE 2 MG/1 ML SYRINGE IV STA (23:17)
[2021-04-03] MEDS ORDERED: ONDANSETRON 4 MG/2 ML VIAL IV ONE (23:17)
[2021-04-03 23:20] LABS: Basophils % 0.5 % (0.0-0.8); Eosinophils # 0.3 10*3/uL (0.0-0.87); Eosinophils % 3.3 % (0.00-10.9); Hematocrit 31.6 VOL% (35.7-47.0); Hemoglobin 9.9 GM/DL (12.0-16.0); Immature Granulocytes % 0.3 %; Immature Granulocytes Absolute 0.03 #; Lymphocytes # 1.1 10*3/uL (1.4-4.0); Lymphocytes % 12.5 % (21.3-54.2); Mean Corpuscular HGB Conc 31.3 GM/DL (32-36); Mean Corpuscular Volume 94.3 FL (87-102); Mean Platelet Volume 11.3 FL (9.6-12.0); Neutrophils % 75.4 % (38.7-73.9); Platelet Count 156 T/CUMM (130-400); Red Blood Count 3.35 MC/CUMM (3.8-5.5); Red Cell Distribution Width 16.1 % (9.3-17.3); White Blood Count 8.7 T/CUMM (4-12)
[2021-04-03 23:33] LABS: PT Patient Result 11.1 SECS (10.5-12.0)
[2021-04-03 23:41] LABS: Albumin 3.3 G/DL (3.4-5.0); Bilirubin,Total 0.6 MG/DL (0.20-1.00); Calcium 8.6 MG/DL (8.5-10.1); Osmolality,Calculated 273.1 MOS/KG (273-304); Potassium 3.4 MMOL/L (3.5-5.1); Total Protein 6.9 G/DL (6.4-8.2)
[2021-04-04 00:15] LABS: Bacteria,Urine Few /HPF (Few); Bilirubin,Urine Negative (Negative); Blood, Urine Small mg/dL (Negative); Glucose,Urine (UA) Negative (Negative); Ketones,Urine Negative (Negative); Nitrite,Urine Negative (Negative); Protein,Urine 100 MG/DL; RBC,Urine 1 /HPF (0-4); Squamous Epithelial Cell,Urine Moderate /HPF (0-10); Urine Appearance Slightly Hazy (Clear); Urine Color Yellow (Yellow); Urine Specific Gravity 1.005 (1.001-1.035); Urine Urobilinogen < 2.0 EU/DL (0.2-1.0)
[2021-04-04] MEDS ORDERED: ONDANSETRON 4 MG/2 ML VIAL IV PRN (00:32)
[2021-04-04] MEDS ORDERED: ACETAMINOPHEN 325 MG TABLET PO PRN (00:32)
[2021-04-04] MEDS: cefTRIAXone 1,000 MG in SODIUM CHLORIDE 0.9% 100 ML IV SCH (01:52)
[2021-04-04 03:03] LABS: Basophils # 0.1 10*3/uL (0.0-0.2); Basophils % 0.7 % (0.0-0.8); Eosinophils # 0.3 10*3/uL (0.0-0.87); Eosinophils % 4.1 % (0.00-10.9); Hematocrit 30.2 VOL% (35.7-47.0); Hemoglobin 9.2 GM/DL (12.0-16.0); Immature Granulocytes % 0.4 %; Immature Granulocytes Absolute 0.03 #; Lymphocytes # 1.2 10*3/uL (1.4-4.0); Lymphocytes % 17.6 % (21.3-54.2); Mean Corpuscular HGB Conc 30.5 GM/DL (32-36); Mean Corpuscular Volume 95.9 FL (87-102); Monocytes % 9.2 % (1.7-12.7); Platelet Count 145 T/CUMM (130-400); Red Blood Count 3.15 MC/CUMM (3.8-5.5); Red Cell Distribution Width 16.1 % (9.3-17.3); White Blood Count 7.1 T/CUMM (4-12)
[2021-04-04 03:25] LABS: Bilirubin,Total 0.5 MG/DL (0.20-1.00); Calcium 8.4 MG/DL (8.5-10.1); Osmolality,Calculated 277.7 MOS/KG (273-304); Potassium 3.7 MMOL/L (3.5-5.1); Total Protein 6.5 G/DL (6.4-8.2)
[2021-04-04] MEDS: hydrALAZINE 20 MG/1 ML VIAL IV PRN ×2 (06:08→18:24)
[2021-04-04] MEDS ORDERED: METHOCARBAMOL 750 MG TABLET PO PRN (06:48)
[2021-04-04] MEDS ORDERED: NITROGLYCERIN SL 0.4 MG TABLET SL PRN (06:48)
[2021-04-04] MEDS ORDERED: ERGOCALCIFEROL 50,000 UNIT CAPSULE PO SCH (09:00)
[2021-04-04] MEDS: POLYETHYLENE GLYCOL POWDER 17 GM PACK PO SCH (09:25)
[2021-04-04] MEDS: SEVELAMER CARBONATE POWDER 2.4 GM PACK PO SCH ×3 (09:25→20:38)
[2021-04-04] MEDS: FOLIC ACID 1 MG TABLET PO SCH (09:26)
[2021-04-04] MEDS: LEVOTHYROXINE 88 MCG TABLET PO SCH (09:26)
[2021-04-04] MEDS: CYANOCOBALAMIN 500 MCG TABLET PO SCH (09:26)
[2021-04-04] MEDS: CLOPIDOGREL 75 MG TABLET PO SCH (09:26)
[2021-04-04] MEDS: PANTOPRAZOLE 40 MG TABLET PO SCH (09:27)
[2021-04-04] MEDS: cloNIDine 0.1 MG TABLET PO SCH ×2 (09:27→20:38)
[2021-04-04] MEDS: ASPIRIN EC 81 MG TABLET PO SCH (09:27)
[2021-04-04] MEDS: carvediloL 12.5 MG TABLET PO SCH ×2 (09:27→20:38)
[2021-04-04] MEDS: amLODIPine 10 MG TABLET PO SCH (09:27)
[2021-04-04] MEDS: ATORVASTATIN 20 MG TABLET PO SCH (09:27)
[2021-04-04] MEDS: LIDOCAINE 4% TOP SCH (10:38)
[2021-04-04] MEDS: ACETAMINOPHEN/CODEINE 300-30 MG TABLET PO PRN (15:17)
[2021-04-04] MEDS: SERTRALINE 25 MG TABLET PO SCH (20:38)
[2021-04-04] MEDS: DOCUSATE SODIUM 100 MG CAPSULE PO SCH (20:38)
[2021-04-04] MEDS: ACETAMINOPHEN 325 MG TABLET PO SCH (20:38)
[2021-04-04] MEDS: ISOSORBIDE MONONITRATE 60 MG TABLET PO SCH (20:38)
[2021-04-05] MEDS: hydrALAZINE 20 MG/1 ML VIAL IV PRN ×2 (00:27→06:05)
[2021-04-05] MEDS: cefTRIAXone 1,000 MG in SODIUM CHLORIDE 0.9% 100 ML IV SCH (02:38)
[2021-04-05] MEDS: LEVOTHYROXINE 88 MCG TABLET PO SCH (06:02)
[2021-04-05 07:36] LABS: Basophils # 0.1 10*3/uL (0.0-0.2); Basophils % 0.5 % (0.0-0.8); Eosinophils # 0.3 10*3/uL (0.0-0.87); Eosinophils % 2.6 % (0.00-10.9); Hematocrit 32.4 VOL% (35.7-47.0); Hemoglobin 10.1 GM/DL (12.0-16.0); Immature Granulocytes % 0.4 %; Immature Granulocytes Absolute 0.04 #; Lymphocytes # 0.8 10*3/uL (1.4-4.0); Lymphocytes % 8.7 % (21.3-54.2); Mean Corpuscular HGB Conc 31.2 GM/DL (32-36); Mean Corpuscular Volume 94.5 FL (87-102); Mean Platelet Volume 11.4 FL (9.6-12.0); Monocytes % 6.5 % (1.7-12.7); Neutrophils % 81.3 % (38.7-73.9); Platelet Count 145 T/CUMM (130-400); Red Blood Count 3.43 MC/CUMM (3.8-5.5); Red Cell Distribution Width 15.9 % (9.3-17.3); White Blood Count 9.6 T/CUMM (4-12)
[2021-04-05 07:52] LABS: Calcium 8.8 MG/DL (8.5-10.1); Potassium 4.4 MMOL/L (3.5-5.1)
[2021-04-05] MEDS: ATORVASTATIN 20 MG TABLET PO SCH (09:26)
[2021-04-05] MEDS: PANTOPRAZOLE 40 MG TABLET PO SCH (09:27)
[2021-04-05] MEDS: ASPIRIN EC 81 MG TABLET PO SCH (09:27)
[2021-04-05] MEDS: FOLIC ACID 1 MG TABLET PO SCH (09:27)
[2021-04-05] MEDS: cloNIDine 0.1 MG TABLET PO SCH ×2 (09:27→20:40)
[2021-04-05] MEDS: ACETAMINOPHEN 325 MG TABLET PO SCH ×2 (09:27→20:42)
[2021-04-05] MEDS: amLODIPine 10 MG TABLET PO SCH (09:27)
[2021-04-05] MEDS: carvediloL 12.5 MG TABLET PO SCH ×2 (09:27→20:42)
[2021-04-05] MEDS: SEVELAMER CARBONATE POWDER 2.4 GM PACK PO SCH ×3 (09:28→20:42)
[2021-04-05] MEDS: POLYETHYLENE GLYCOL POWDER 17 GM PACK PO SCH (09:28)
[2021-04-05] MEDS: ACETAMINOPHEN/CODEINE 300-30 MG TABLET PO PRN ×2 (09:30→20:41)
[2021-04-05] MEDS: CYANOCOBALAMIN 500 MCG TABLET PO SCH (09:36)
[2021-04-05] MEDS: CLOPIDOGREL 75 MG TABLET PO SCH (09:40)
[2021-04-05] MEDS: LIDOCAINE 4% TOP SCH (09:42)
[2021-04-05] MEDS: DOCUSATE SODIUM 100 MG CAPSULE PO SCH (20:40)
[2021-04-05] MEDS: SERTRALINE 25 MG TABLET PO SCH (20:41)
[2021-04-05] MEDS: ISOSORBIDE MONONITRATE 60 MG TABLET PO SCH (20:41)
[2021-04-05] MEDS ORDERED: MORPHINE 2 MG/1 ML SYRINGE IV PRN (20:58)
[2021-04-05] MEDS: MORPHINE 2 MG/1 ML SYRINGE IV PRN (22:11)
[2021-04-06] MEDS: cefTRIAXone 1,000 MG in SODIUM CHLORIDE 0.9% 100 ML IV SCH (00:54)
[2021-04-06] MEDS: hydrALAZINE 20 MG/1 ML VIAL IV PRN (02:10)
[2021-04-06] MEDS: MORPHINE 2 MG/1 ML SYRINGE IV PRN (03:51)
[2021-04-06 04:40] VITALS: BP 197/53
[2021-04-06] MEDS ORDERED: hydrALAZINE 20 MG/1 ML VIAL IV PRN (04:44)
[2021-04-06] MEDS ORDERED: niCARdipine INJ 25 MG in SODIUM CHLORIDE 0.9% 240 ML IV PRN (05:00)
[2021-04-06] MEDS: LEVOTHYROXINE 88 MCG TABLET PO SCH (06:00)
[2021-04-06] MEDS: CLOPIDOGREL 75 MG TABLET PO SCH (08:06)
[2021-04-06] MEDS: FOLIC ACID 1 MG TABLET PO SCH (08:06)
[2021-04-06] MEDS: CYANOCOBALAMIN 500 MCG TABLET PO SCH (08:06)
[2021-04-06] MEDS: PANTOPRAZOLE 40 MG TABLET PO SCH (08:07)
[2021-04-06] MEDS: cloNIDine 0.1 MG TABLET PO SCH ×2 (08:07→21:25)
[2021-04-06] MEDS: ASPIRIN EC 81 MG TABLET PO SCH (08:07)
[2021-04-06] MEDS: ATORVASTATIN 20 MG TABLET PO SCH (08:07)
[2021-04-06] MEDS: amLODIPine 10 MG TABLET PO SCH (08:08)
[2021-04-06] MEDS: carvediloL 25 MG TABLET PO SCH ×2 (08:08→21:25)
[2021-04-06] MEDS: SEVELAMER CARBONATE POWDER 2.4 GM PACK PO SCH ×3 (08:09→21:22)
[2021-04-06] MEDS: POLYETHYLENE GLYCOL POWDER 17 GM PACK PO SCH (08:10)
[2021-04-06] MEDS: LIDOCAINE 4% TOP SCH (08:13)
[2021-04-06] MEDS: ACETAMINOPHEN 325 MG TABLET PO SCH ×2 (08:43→21:24)
[2021-04-06] MEDS ORDERED: HEPARIN 10,000 UNIT/10 ML VIAL IV PRN (14:10)
[2021-04-06] MEDS: DOCUSATE SODIUM 100 MG CAPSULE PO SCH (21:22)
[2021-04-06] MEDS: SERTRALINE 25 MG TABLET PO SCH (21:23)
[2021-04-06] MEDS: ISOSORBIDE MONONITRATE 60 MG TABLET PO SCH (21:25)
[2021-04-07] MEDS: cefTRIAXone 1,000 MG in SODIUM CHLORIDE 0.9% 100 ML IV SCH (00:27)
[2021-04-07 05:49] LABS: Basophils % 0.7 % (0.0-0.8); Eosinophils # 0.4 10*3/uL (0.0-0.87); Eosinophils % 5.7 % (0.00-10.9); Hemoglobin 9.5 GM/DL (12.0-16.0); Immature Granulocytes % 0.2 %; Immature Granulocytes Absolute 0.01 #; Lymphocytes # 0.6 10*3/uL (1.4-4.0); Lymphocytes % 9.2 % (21.3-54.2); Mean Corpuscular HGB Conc 30.6 GM/DL (32-36); Mean Corpuscular Volume 98.1 FL (87-102); Mean Platelet Volume 11.6 FL (9.6-12.0); Monocytes % 9.7 % (1.7-12.7); Neutrophils % 74.5 % (38.7-73.9); Platelet Count 146 T/CUMM (130-400); Red Blood Count 3.16 MC/CUMM (3.8-5.5); Red Cell Distribution Width 15.4 % (9.3-17.3); White Blood Count 6.1 T/CUMM (4-12)
[2021-04-07 05:57] LABS: Calcium 8.9 MG/DL (8.5-10.1); Osmolality,Calculated 272.1 MOS/KG (273-304); Potassium 4.3 MMOL/L (3.5-5.1)
[2021-04-07] MEDS: LEVOTHYROXINE 88 MCG TABLET PO SCH (06:03)
[2021-04-07] MEDS: amLODIPine 10 MG TABLET PO SCH (08:19)
[2021-04-07] MEDS: CYANOCOBALAMIN 500 MCG TABLET PO SCH (08:19)
[2021-04-07] MEDS: cloNIDine 0.1 MG TABLET PO SCH (08:19)
[2021-04-07] MEDS: ASPIRIN EC 81 MG TABLET PO SCH (08:19)
[2021-04-07] MEDS: POLYETHYLENE GLYCOL POWDER 17 GM PACK PO SCH (08:19)
[2021-04-07] MEDS: ACETAMINOPHEN 325 MG TABLET PO SCH (08:19)
[2021-04-07] MEDS: FOLIC ACID 1 MG TABLET PO SCH (08:19)
[2021-04-07] MEDS: SEVELAMER CARBONATE POWDER 2.4 GM PACK PO SCH (08:19)
[2021-04-07] MEDS: CLOPIDOGREL 75 MG TABLET PO SCH (08:20)
[2021-04-07] MEDS: PANTOPRAZOLE 40 MG TABLET PO SCH (08:20)
[2021-04-07] MEDS: carvediloL 25 MG TABLET PO SCH (08:20)
[2021-04-07] MEDS: ATORVASTATIN 20 MG TABLET PO SCH (08:20)
[2021-04-07] MEDS: LIDOCAINE 4% TOP SCH (08:33)
== END 2021-04-07 10:14 | DRG 304 ==
LOC: EDBD → EDUNIT# → N.ED 22:27 → N.EDINP 22:27 → N.TELEN 04-04 02:42 → N.CC 04-06 05:24
PROVIDERS: ADMIT Internal Medicine; ATTEND Internal Medicine

== ENCOUNTER 2021-04-28 20:53 | Inpatient (IN) ==
[2021-04-28] MEDS ORDERED: cefTRIAXone 1,000 MG in SODIUM CHLORIDE 0.9% 100 ML IV STA (22:55)
[2021-04-28 23:33] LABS: Basophils # 0.1 10*3/uL (0.0-0.2); Basophils % 0.3 % (0.0-0.8); Eosinophils % 0.2 % (0.00-10.9); Hematocrit 26.7 VOL% (35.7-47.0); Hemoglobin 8.5 GM/DL (12.0-16.0); Immature Granulocytes % 0.8 %; Immature Granulocytes Absolute 0.15 #; Lymphocytes # 0.8 10*3/uL (1.4-4.0); Mean Corpuscular HGB Conc 31.8 GM/DL (32-36); Mean Corpuscular Volume 95.4 FL (87-102); Mean Platelet Volume 11.3 FL (9.6-12.0); Monocytes % 4.6 % (1.7-12.7); Neutrophils % 90.1 % (38.7-73.9); Platelet Count 175 T/CUMM (130-400); Red Cell Distribution Width 15.9 % (9.3-17.3); White Blood Count 18.8 T/CUMM (4-12)
[2021-04-28 23:45] LABS: INR 1.1; PT Patient Result 11.8 SECS (10.5-12.0); Partial Thromboplastin Time 31.9 SECS (23.8-32.1)
[2021-04-28 23:49] LABS: Alanine Aminotransferase < 6 U/L (13-56); Albumin 2.8 G/DL (3.4-5.0); Alkaline Phosphatase 91 U/L (45-117); Aspartate Amino Transferase 11 U/L (0-37); Blood Urea Nitrogen 29 MG/DL (7-18); Calcium 8.6 MG/DL (8.5-10.1); Carbon Dioxide 26 MMOL/L (21-32); Estimated Glom Filtration Rate 7 ML/MIN; Glucose 105 MG/DL (74-106); Osmolality,Calculated 278.8 MOS/KG (273-304); Potassium 3.7 MMOL/L (3.5-5.1); Sodium 137 MMOL/L (136-145); Total Protein 6.6 G/DL (6.4-8.2)
[2021-04-29 01:45] LABS: Band Neutrophils 8 % (0-10); Lymphocytes 4 % (20-55); Segmented Neutrophils 83 % (50-85); Total Cells Counted 100
[2021-04-29 01:48] LABS: Hypochromia 2+; Microcytosis 1+; Platelet Estimate Normal
[2021-04-29] MEDS ORDERED: AZITHROMYCIN INJ 500 MG in SODIUM CHLORIDE 0.9% 250 ML IV STA (03:51)
[2021-04-29] MEDS ORDERED: ACETAMINOPHEN 325 MG TABLET PO PRN (03:51)
[2021-04-29] MEDS ORDERED: ONDANSETRON 4 MG/2 ML VIAL IV PRN (03:51)
[2021-04-29] MEDS ORDERED: AZITHROMYCIN INJ 500 MG in SODIUM CHLORIDE 0.9% 250 ML IV ONE (06:00)
[2021-04-29] MEDS ORDERED: ALBUTEROL/IPRATROPIUM 3 ML NEB RESP TX SCH (07:00)
[2021-04-29] MEDS: ALBUTEROL/IPRATROPIUM 3 ML NEB RESP TX SCH ×4 (07:58→19:30)
[2021-04-29] MEDS: SODIUM CHLORIDE 0.9% 1,000 ML IV SCH ×2 (08:10→13:45)
[2021-04-29] MEDS ORDERED: ACETAMINOPHEN CODEINE PO PRN (08:59)
[2021-04-29] MEDS ORDERED: NITROGLYCERIN SL 0.4 MG TABLET SL PRN (08:59)
[2021-04-29] MEDS: SEVELAMER CARBONATE POWDER 2.4 GM PACK PO SCH ×3 (11:22→21:48)
[2021-04-29] MEDS: [UNRECOGNIZED DRUG - OTHER] TOP SCH (11:22)
[2021-04-29] MEDS: LEVOTHYROXINE 88 MCG TABLET PO SCH (11:22)
[2021-04-29] MEDS: LIDOCAINE 4% TOP SCH (11:22)
[2021-04-29] MEDS ORDERED: HEPARIN 10,000 UNIT/10 ML VIAL IV SCH (11:45)
[2021-04-29] MEDS: PANTOPRAZOLE 40 MG TABLET PO SCH ×2 (11:46→13:45)
[2021-04-29] MEDS: DOCUSATE SODIUM 100 MG CAPSULE PO SCH ×3 (13:44→21:52)
[2021-04-29] MEDS: FOLIC ACID 1 MG TABLET PO SCH (13:44)
[2021-04-29] MEDS: carvediloL 25 MG TABLET PO SCH ×2 (13:44→21:47)
[2021-04-29] MEDS: cloNIDine 0.1 MG TABLET PO SCH ×2 (13:44→21:47)
[2021-04-29] MEDS: ATORVASTATIN 20 MG TABLET PO SCH (13:44)
[2021-04-29] MEDS: ASPIRIN EC 81 MG TABLET PO SCH (13:44)
[2021-04-29] MEDS: POLYETHYLENE GLYCOL POWDER 17 GM PACK PO SCH (13:45)
[2021-04-29] MEDS: cefTRIAXone 1,000 MG in SODIUM CHLORIDE 0.9% 100 ML IV SCH (13:45)
[2021-04-29] MEDS: amLODIPine 10 MG TABLET PO SCH (13:45)
[2021-04-29] MEDS: CYANOCOBALAMIN 500 MCG TABLET PO SCH (13:45)
[2021-04-29] MEDS: CLOPIDOGREL 75 MG TABLET PO SCH (13:45)
[2021-04-29] MEDS: SERTRALINE 25 MG TABLET PO SCH (21:48)
[2021-04-29] MEDS: ISOSORBIDE MONONITRATE 60 MG TABLET PO SCH (21:48)
[2021-04-29] MEDS: oxyCODONE/ACETAMINOPHEN 5-325 MG TABLET PO PRN (23:33)
[2021-04-30] MEDS: ALBUTEROL/IPRATROPIUM 3 ML NEB RESP TX SCH ×4 (01:57→20:17)
[2021-04-30 05:29] LABS: Basophils # 0.1 10*3/uL (0.0-0.2); Basophils % 0.3 % (0.0-0.8); Eosinophils # 0.1 10*3/uL (0.0-0.87); Eosinophils % 0.8 % (0.00-10.9); Hemoglobin 8.4 GM/DL (12.0-16.0); Immature Granulocytes % 0.6 %; Immature Granulocytes Absolute 0.08 #; Lymphocytes # 0.7 10*3/uL (1.4-4.0); Lymphocytes % 4.8 % (21.3-54.2); Mean Corpuscular HGB Conc 31.1 GM/DL (32-36); Mean Corpuscular Volume 96.4 FL (87-102); Mean Platelet Volume 11.2 FL (9.6-12.0); Monocytes % 5.5 % (1.7-12.7); Platelet Count 186 T/CUMM (130-400); Red Cell Distribution Width 16.1 % (9.3-17.3); White Blood Count 14.3 T/CUMM (4-12)
[2021-04-30] MEDS: SODIUM CHLORIDE 0.9% 1,000 ML IV SCH ×3 (05:38→11:16)
[2021-04-30 05:49] LABS: Calcium 8.6 MG/DL (8.5-10.1); Osmolality,Calculated 277.7 MOS/KG (273-304); Potassium 3.9 MMOL/L (3.5-5.1)
[2021-04-30 06:00] LABS: Eosinophils 1 % (0-10); Hypochromia Slight; Lymphocytes 3 % (20-55); Platelet Estimate Normal; Segmented Neutrophils 93 % (50-85); Total Cells Counted 100
[2021-04-30] MEDS: LEVOTHYROXINE 88 MCG TABLET PO SCH (06:10)
[2021-04-30] MEDS: CLOPIDOGREL 75 MG TABLET PO SCH (09:35)
[2021-04-30] MEDS: FOLIC ACID 1 MG TABLET PO SCH (09:35)
[2021-04-30] MEDS: DOCUSATE SODIUM 100 MG CAPSULE PO SCH ×3 (09:35→21:06)
[2021-04-30] MEDS: cloNIDine 0.1 MG TABLET PO SCH ×2 (09:35→21:06)
[2021-04-30] MEDS: AZITHROMYCIN 250 MG TABLET PO SCH (09:35)
[2021-04-30] MEDS: ASPIRIN EC 81 MG TABLET PO SCH (09:35)
[2021-04-30] MEDS: PANTOPRAZOLE 40 MG TABLET PO SCH ×2 (09:35→09:37)
[2021-04-30] MEDS: carvediloL 25 MG TABLET PO SCH ×2 (09:35→21:07)
[2021-04-30] MEDS: amLODIPine 10 MG TABLET PO SCH (09:36)
[2021-04-30] MEDS: POLYETHYLENE GLYCOL POWDER 17 GM PACK PO SCH (09:36)
[2021-04-30] MEDS: CYANOCOBALAMIN 500 MCG TABLET PO SCH (09:36)
[2021-04-30] MEDS: LIDOCAINE 4% TOP SCH (09:36)
[2021-04-30] MEDS: ENOXAPARIN 30 MG/0.3 ML SYRINGE SUBCUT SCH (09:36)
[2021-04-30] MEDS: ATORVASTATIN 20 MG TABLET PO SCH (09:36)
[2021-04-30] MEDS: [UNRECOGNIZED DRUG - OTHER] TOP SCH (09:36)
[2021-04-30] MEDS: SEVELAMER CARBONATE POWDER 2.4 GM PACK PO SCH ×3 (09:37→21:09)
[2021-04-30] MEDS: cefTRIAXone 1,000 MG in SODIUM CHLORIDE 0.9% 100 ML IV SCH (09:45)
[2021-04-30] MEDS: oxyCODONE/ACETAMINOPHEN 5-325 MG TABLET PO PRN (14:32)
[2021-04-30] MEDS: ISOSORBIDE MONONITRATE 60 MG TABLET PO SCH (21:06)
[2021-04-30] MEDS: SERTRALINE 25 MG TABLET PO SCH (21:07)
[2021-05-01] MEDS: ALBUTEROL/IPRATROPIUM 3 ML NEB RESP TX SCH ×4 (01:35→19:30)
[2021-05-01] MEDS: LEVOTHYROXINE 88 MCG TABLET PO SCH (05:37)
[2021-05-01] MEDS: SODIUM CHLORIDE 0.9% 1,000 ML IV SCH (07:14)
[2021-05-01] MEDS ORDERED: NALOXONE 0.4 MG/ML VIAL IV ONE ×2 (08:58→09:23)
[2021-05-01] MEDS ORDERED: NALOXONE 0.4 MG/ML VIAL ONE (09:01)
[2021-05-01] MEDS: POLYETHYLENE GLYCOL POWDER 17 GM PACK PO SCH (09:15)
[2021-05-01] MEDS: DOCUSATE SODIUM 100 MG CAPSULE PO SCH ×3 (09:15→22:22)
[2021-05-01 09:51] LABS: Hepatitis B Core IgM Quant 0.13 Index; Hepatitis B Surface Ag Quant < 0.10 Index; Hepatitis B Surface Ag Result Non-Reactive (NonReactive); Hepatitis C Virus Ab Quant 0.09 Index; Hepatitis C Virus Ab Result Non-Reactive (NonReactive)
[2021-05-01] MEDS: [UNRECOGNIZED DRUG - OTHER] TOP SCH (10:21)
[2021-05-01] MEDS: LIDOCAINE 4% TOP SCH (10:21)
[2021-05-01] MEDS: PANTOPRAZOLE 40 MG TABLET PO SCH ×2 (12:51→15:01)
[2021-05-01] MEDS: SEVELAMER CARBONATE POWDER 2.4 GM PACK PO SCH ×3 (12:51→22:23)
[2021-05-01] MEDS: ENOXAPARIN 30 MG/0.3 ML SYRINGE SUBCUT SCH (14:54)
[2021-05-01] MEDS: cefTRIAXone 1,000 MG in SODIUM CHLORIDE 0.9% 100 ML IV SCH (14:54)
[2021-05-01] MEDS: amLODIPine 10 MG TABLET PO SCH (15:01)
[2021-05-01] MEDS: CYANOCOBALAMIN 500 MCG TABLET PO SCH (15:01)
[2021-05-01] MEDS: AZITHROMYCIN 250 MG TABLET PO SCH (15:01)
[2021-05-01] MEDS: cloNIDine 0.1 MG TABLET PO SCH ×2 (15:01→22:22)
[2021-05-01] MEDS: ATORVASTATIN 20 MG TABLET PO SCH (15:01)
[2021-05-01] MEDS: CLOPIDOGREL 75 MG TABLET PO SCH (15:01)
[2021-05-01] MEDS: carvediloL 25 MG TABLET PO SCH ×2 (15:01→22:22)
[2021-05-01] MEDS: ASPIRIN EC 81 MG TABLET PO SCH (15:01)
[2021-05-01] MEDS: FOLIC ACID 1 MG TABLET PO SCH (15:02)
[2021-05-01] MEDS ORDERED: MELATONIN 3 MG TABLET PO PRN (16:56)
[2021-05-01] MEDS: METHOCARBAMOL 750 MG TABLET PO PRN (17:49)
[2021-05-01] MEDS: ISOSORBIDE MONONITRATE 60 MG TABLET PO SCH (22:23)
[2021-05-01] MEDS: SERTRALINE 25 MG TABLET PO SCH (22:24)
[2021-05-02] MEDS: ALBUTEROL/IPRATROPIUM 3 ML NEB RESP TX SCH ×4 (00:55→19:43)
[2021-05-02] MEDS: LEVOTHYROXINE 88 MCG TABLET PO SCH (06:12)
[2021-05-02] MEDS: METHOCARBAMOL 750 MG TABLET PO PRN ×2 (07:32→17:02)
[2021-05-02] MEDS ORDERED: ERGOCALCIFEROL 50,000 UNIT CAPSULE PO SCH (08:59)
[2021-05-02] MEDS: ENOXAPARIN 30 MG/0.3 ML SYRINGE SUBCUT SCH (09:10)
[2021-05-02] MEDS: cefTRIAXone 1,000 MG in SODIUM CHLORIDE 0.9% 100 ML IV SCH (09:10)
[2021-05-02] MEDS: SEVELAMER CARBONATE POWDER 2.4 GM PACK PO SCH ×3 (09:10→21:59)
[2021-05-02] MEDS: ASPIRIN EC 81 MG TABLET PO SCH (09:11)
[2021-05-02] MEDS: ATORVASTATIN 20 MG TABLET PO SCH (09:11)
[2021-05-02] MEDS: AZITHROMYCIN 250 MG TABLET PO SCH (09:11)
[2021-05-02] MEDS: DOCUSATE SODIUM 100 MG CAPSULE PO SCH ×3 (09:11→21:55)
[2021-05-02] MEDS: FOLIC ACID 1 MG TABLET PO SCH (09:11)
[2021-05-02] MEDS: CYANOCOBALAMIN 500 MCG TABLET PO SCH (09:11)
[2021-05-02] MEDS: PANTOPRAZOLE 40 MG TABLET PO SCH (09:11)
[2021-05-02] MEDS: amLODIPine 10 MG TABLET PO SCH (09:11)
[2021-05-02] MEDS: carvediloL 25 MG TABLET PO SCH ×2 (09:11→21:54)
[2021-05-02] MEDS: CLOPIDOGREL 75 MG TABLET PO SCH (09:11)
[2021-05-02] MEDS: cloNIDine 0.1 MG TABLET PO SCH ×2 (09:11→21:54)
[2021-05-02] MEDS: POLYETHYLENE GLYCOL POWDER 17 GM PACK PO SCH (09:12)
[2021-05-02] MEDS: LIDOCAINE 4% TOP SCH (09:12)
[2021-05-02] MEDS: [UNRECOGNIZED DRUG - OTHER] TOP SCH (09:12)
[2021-05-02] MEDS: ISOSORBIDE MONONITRATE 60 MG TABLET PO SCH (21:53)
[2021-05-02] MEDS: SERTRALINE 25 MG TABLET PO SCH (21:54)
[2021-05-03] MEDS: ALBUTEROL/IPRATROPIUM 3 ML NEB RESP TX SCH ×4 (01:29→19:51)
[2021-05-03] MEDS: LEVOTHYROXINE 88 MCG TABLET PO SCH (05:38)
[2021-05-03 05:43] LABS: Basophils # 0.1 10*3/uL (0.0-0.2); Basophils % 0.5 % (0.0-0.8); Eosinophils # 0.2 10*3/uL (0.0-0.87); Eosinophils % 1.9 % (0.00-10.9); Hematocrit 29.4 VOL% (35.7-47.0); Hemoglobin 9.1 GM/DL (12.0-16.0); Immature Granulocytes % 1.3 %; Immature Granulocytes Absolute 0.17 #; Lymphocytes % 7.5 % (21.3-54.2); Mean Corpuscular Volume 97.4 FL (87-102); Mean Platelet Volume 10.7 FL (9.6-12.0); Monocytes % 6.3 % (1.7-12.7); Neutrophils % 82.5 % (38.7-73.9); Platelet Count 255 T/CUMM (130-400); Red Blood Count 3.02 MC/CUMM (3.8-5.5); Red Cell Distribution Width 15.7 % (9.3-17.3); White Blood Count 12.8 T/CUMM (4-12)
[2021-05-03 06:05] LABS: Alanine Aminotransferase < 6 U/L (13-56); Albumin 2.4 G/DL (3.4-5.0); Alkaline Phosphatase 92 U/L (45-117); Aspartate Amino Transferase 8 U/L (0-37); Blood Urea Nitrogen 39 MG/DL (7-18); Calcium 9.4 MG/DL (8.5-10.1); Carbon Dioxide 25 MMOL/L (21-32); Estimated Glom Filtration Rate 6 ML/MIN; Glucose 133 MG/DL (74-106); Osmolality,Calculated 276.4 MOS/KG (273-304); Potassium 3.8 MMOL/L (3.5-5.1); Sodium 133 MMOL/L (136-145); Total Protein 6.6 G/DL (6.4-8.2)
[2021-05-03] MEDS: cloNIDine 0.1 MG TABLET PO SCH ×2 (09:52→21:39)
[2021-05-03] MEDS: CYANOCOBALAMIN 500 MCG TABLET PO SCH (09:52)
[2021-05-03] MEDS: ASPIRIN EC 81 MG TABLET PO SCH (09:52)
[2021-05-03] MEDS: FOLIC ACID 1 MG TABLET PO SCH (09:52)
[2021-05-03] MEDS: carvediloL 25 MG TABLET PO SCH ×2 (09:52→21:39)
[2021-05-03] MEDS: PANTOPRAZOLE 40 MG TABLET PO SCH (09:52)
[2021-05-03] MEDS: DOCUSATE SODIUM 100 MG CAPSULE PO SCH ×2 (09:53→21:39)
[2021-05-03] MEDS: CLOPIDOGREL 75 MG TABLET PO SCH (09:53)
[2021-05-03] MEDS: ATORVASTATIN 20 MG TABLET PO SCH (09:53)
[2021-05-03] MEDS: ENOXAPARIN 30 MG/0.3 ML SYRINGE SUBCUT SCH (09:53)
[2021-05-03] MEDS: SEVELAMER CARBONATE POWDER 2.4 GM PACK PO SCH ×3 (09:53→21:39)
[2021-05-03] MEDS: AZITHROMYCIN 250 MG TABLET PO SCH (09:53)
[2021-05-03] MEDS: POLYETHYLENE GLYCOL POWDER 17 GM PACK PO SCH (09:53)
[2021-05-03] MEDS: amLODIPine 10 MG TABLET PO SCH (09:53)
[2021-05-03] MEDS: [UNRECOGNIZED DRUG - OTHER] TOP SCH (09:54)
[2021-05-03] MEDS: LIDOCAINE 4% TOP SCH (09:54)
[2021-05-03] MEDS: cefTRIAXone 1,000 MG in SODIUM CHLORIDE 0.9% 100 ML IV SCH (09:56)
[2021-05-03] MEDS: METHOCARBAMOL 750 MG TABLET PO PRN ×2 (10:40→16:50)
[2021-05-03] MEDS: ISOSORBIDE MONONITRATE 60 MG TABLET PO SCH (21:38)
[2021-05-03] MEDS: SERTRALINE 25 MG TABLET PO SCH (21:38)
[2021-05-04] MEDS: ALBUTEROL/IPRATROPIUM 3 ML NEB RESP TX SCH ×4 (01:33→19:30)
[2021-05-04] MEDS: DOCUSATE SODIUM 100 MG CAPSULE PO SCH ×4 (03:33→22:50)
[2021-05-04] MEDS: LEVOTHYROXINE 88 MCG TABLET PO SCH (06:40)
[2021-05-04] MEDS: cefTRIAXone 1,000 MG in SODIUM CHLORIDE 0.9% 100 ML IV SCH (12:01)
[2021-05-04] MEDS: NYSTATIN 500,000 UNIT/5 ML UDCUP SWISH/SWAL SCH ×5 (12:02→22:44)
[2021-05-04] MEDS: ENOXAPARIN 30 MG/0.3 ML SYRINGE SUBCUT SCH (12:02)
[2021-05-04] MEDS: cloNIDine 0.1 MG TABLET PO SCH ×2 (12:04→22:43)
[2021-05-04] MEDS: amLODIPine 10 MG TABLET PO SCH (12:04)
[2021-05-04] MEDS: PANTOPRAZOLE 40 MG TABLET PO SCH (12:04)
[2021-05-04] MEDS: FOLIC ACID 1 MG TABLET PO SCH (12:04)
[2021-05-04] MEDS: CLOPIDOGREL 75 MG TABLET PO SCH (12:04)
[2021-05-04] MEDS: ASPIRIN EC 81 MG TABLET PO SCH (12:04)
[2021-05-04] MEDS: ATORVASTATIN 20 MG TABLET PO SCH (12:04)
[2021-05-04] MEDS: POLYETHYLENE GLYCOL POWDER 17 GM PACK PO SCH (12:05)
[2021-05-04] MEDS: AZITHROMYCIN 250 MG TABLET PO SCH (12:05)
[2021-05-04] MEDS: SEVELAMER CARBONATE POWDER 2.4 GM PACK PO SCH ×3 (12:05→22:42)
[2021-05-04] MEDS: carvediloL 25 MG TABLET PO SCH ×2 (12:05→22:43)
[2021-05-04] MEDS: CYANOCOBALAMIN 500 MCG TABLET PO SCH (12:06)
[2021-05-04] MEDS: LIDOCAINE 4% TOP SCH (12:15)
[2021-05-04] MEDS: [UNRECOGNIZED DRUG - OTHER] TOP SCH (12:15)
[2021-05-04] MEDS: SERTRALINE 25 MG TABLET PO SCH (22:43)
[2021-05-04] MEDS: ISOSORBIDE MONONITRATE 60 MG TABLET PO SCH (22:44)
[2021-05-05] MEDS: ALBUTEROL/IPRATROPIUM 3 ML NEB RESP TX SCH ×2 (00:52→07:30)
[2021-05-05 04:26] LABS: Basophils # 0.1 10*3/uL (0.0-0.2); Basophils % 0.6 % (0.0-0.8); Eosinophils # 0.5 10*3/uL (0.0-0.87); Eosinophils % 3.7 % (0.00-10.9); Hematocrit 29.6 VOL% (35.7-47.0); Hemoglobin 9.3 GM/DL (12.0-16.0); Immature Granulocytes % 1.8 %; Immature Granulocytes Absolute 0.22 #; Lymphocytes # 1.3 10*3/uL (1.4-4.0); Lymphocytes % 10.7 % (21.3-54.2); Mean Corpuscular HGB Conc 31.4 GM/DL (32-36); Mean Corpuscular Volume 95.2 FL (87-102); Mean Platelet Volume 10.5 FL (9.6-12.0); Monocytes % 7.3 % (1.7-12.7); Neutrophils % 75.9 % (38.7-73.9); Platelet Count 262 T/CUMM (130-400); Red Blood Count 3.11 MC/CUMM (3.8-5.5); Red Cell Distribution Width 15.6 % (9.3-17.3)
[2021-05-05] MEDS: LEVOTHYROXINE 88 MCG TABLET PO SCH (06:13)
[2021-05-05 08:19] VITALS: BP 152/49
[2021-05-05] MEDS: amLODIPine 10 MG TABLET PO SCH (09:19)
[2021-05-05] MEDS: DOCUSATE SODIUM 100 MG CAPSULE PO SCH (09:19)
[2021-05-05] MEDS: CYANOCOBALAMIN 500 MCG TABLET PO SCH (09:19)
[2021-05-05] MEDS: carvediloL 25 MG TABLET PO SCH (09:19)
[2021-05-05] MEDS: CLOPIDOGREL 75 MG TABLET PO SCH (09:19)
[2021-05-05] MEDS: AZITHROMYCIN 250 MG TABLET PO SCH (09:19)
[2021-05-05] MEDS: PANTOPRAZOLE 40 MG TABLET PO SCH (09:20)
[2021-05-05] MEDS: NYSTATIN 500,000 UNIT/5 ML UDCUP SWISH/SWAL SCH (09:20)
[2021-05-05] MEDS: cloNIDine 0.1 MG TABLET PO SCH (09:20)
[2021-05-05] MEDS: ATORVASTATIN 20 MG TABLET PO SCH (09:20)
[2021-05-05] MEDS: ASPIRIN EC 81 MG TABLET PO SCH (09:20)
[2021-05-05] MEDS: ENOXAPARIN 30 MG/0.3 ML SYRINGE SUBCUT SCH (09:20)
[2021-05-05] MEDS: FOLIC ACID 1 MG TABLET PO SCH (09:20)
[2021-05-05] MEDS: [UNRECOGNIZED DRUG - OTHER] TOP SCH (09:21)
[2021-05-05] MEDS: cefTRIAXone 1,000 MG in SODIUM CHLORIDE 0.9% 100 ML IV SCH (09:21)
[2021-05-05] MEDS: LIDOCAINE 4% TOP SCH (09:21)
[2021-05-05] MEDS: POLYETHYLENE GLYCOL POWDER 17 GM PACK PO SCH (09:21)
[2021-05-05] MEDS ORDERED: SEVELAMER CARBONATE POWDER 2.4 GM PACK PO SCH (12:00)
== END 2021-05-05 11:05 | DRG 193 ==
LOC: EDBD → EDUNIT# → N.ED 20:53 → N.EDINP 04-29 02:11 → N.TELEN 04-29 06:40
PROVIDERS: ADMIT Internal Medicine; ATTEND Internal Medicine